=== PATIENT | male | born 1945 | race Caucasian/White ===

== ENCOUNTER 2018-12-17 09:47 | Inpatient (IN) | payer MEDICARE ==
[~2018-12-17] VITALS: Ht 175.3 cm; Wt 111.8 kg
[~2018-12-17 09:47] MED LIST: ACET325 PO; ALBIPROI INH; ALBU3IS INH; ALBU90OI61 INH; CYCL10 PO; FURO40 PO; HYDMOR2 PO; LEVAQUIN-D750 MG/150 IV; LEVFLO500 PO; MAGN84 PO; NOVOLIN 70100 UNIT/1; Novolin R100 UNIT/M SC; ONDA8ODT MM; POTCHL20ER PO; PRED10 PO; VANCOMYCIN2 GM/500 M IV; Zofran2 MG/1 ML IV
[2018-12-17 11:13] LABS: Hematocrit 42.9 % (37.0-53.0); Hemoglobin 15.4 g/dL (13.5-17.5); Mean Corpuscular HGB Conc 35.9 g/dL (31.5-36.5); Mean Corpuscular Volume 84 fL (80-100); Mean Platelet Volume 10.3 fL (9.1-12.4); Platelet Count 355 K/mm3 (150-400); RDW Coefficient Variation 12.1 % (11.7-14.2); RDW Standard Deviation 36.8 fL (35.1-46.3); Red Blood Cell Count 5.13 M/mm3 (4.30-5.90); White Blood Cell Count 27.42 K/mm3 (4.00-11.30)
[2018-12-17 11:26] LABS: Troponin I <0.015 ng/mL (0.000-0.040)
[2018-12-17 11:35] LABS: BASOPHILS PERCENT MAN 0 % (0-2); EOSINOPHILS PERCENT MAN 0 % (0-6); LYMPHOCYTES ABSOLUTE MAN 1.91 K/mm3 (0.84-5.20); LYMPHOCYTES PERCENT MAN 7 % (21-46); MONOCYTES ABSOLUTE MAN 1.64 K/mm3 (0.16-1.47); MONOCYTES PERCENT MAN 6 % (4-13); NEUTROPHILS ABSOLUTE MAN 23.85 K/mm3 (1.96-9.15); SEG NEUTROPHILS PERCENT MAN 87 % (41-73); TOTAL CELLS COUNTED 100
[2018-12-17 11:39] LABS: Alanine Aminotransfer (ALT/SGP 27 U/L (12-78); Albumin, Blood 2.5 g/dL (3.4-5.0); Albumin/Globulin Ratio 0.4 (0.8-1.8); Alk Phos 128 U/L (50-136); Anion Gap 14 mmol/L (6-16); Aspartate Aminotrans (AST/SGOT 46 U/L (12-37); Blood Urea Nitrogen 40 mg/dL (8-24); Bun/Creatinine Ratio 34.8 (12.0-20.0); CO2, Blood 27 mmol/L (21-32); CPK Creatine Kinase 1031 U/L (39-308); Calcium, Blood 8.5 mg/dL (8.5-10.1); Chloride, Blood 82 mmol/L (98-108); Creatinine, Blood 1.15 mg/dL (0.60-1.20); Globulin, Blood 6.3 g/dL (2.2-4.0); Glomerular Filtration Rate >60 (60-); Glucose, Blood 688 mg/dL (70-99); Potassium, Blood 2.9 mmol/L (3.5-5.5); Sodium, Blood 123 mmol/L (136-145); Total Protein, Blood 8.8 g/dL (6.4-8.2)
[2018-12-17] MEDS ORDERED: POTCHL20ER (11:41)
[2018-12-17] MEDS ORDERED: AMIL5 PO (11:42)
[2018-12-17] MEDS ORDERED: Depo-Testos200 MG/ML IM (11:43)
[2018-12-17] MEDS ORDERED: METO2.5 PO (11:44)
[2018-12-17 11:52] LABS: Creatine Kinase MB 8.2 ng/mL (0.0-3.6); Creatine Kinase MB Index 0.8 (0.0-4.0)
[2018-12-17] MEDS ORDERED: ALBU90OI61 INH (13:39)
[2018-12-17 13:51] LABS: C-REACTIVE PROTEIN, EXT RANGE 15.2 mg/dL (0.000-0.300); Magnesium, Blood 2.6 mg/dL (1.6-2.4)
[2018-12-17 13:54] LABS: Thyroid Stimulating Hormone 1.33 uIU/mL (0.360-4.800)
[2018-12-17 14:06] LABS: Source, Urine Clean Catch
[2018-12-17 14:15] LABS: Appearance, Urine Clear (Clear); Bilirubin, Urine Neg (Neg); Blood, Urine 2+ (Neg); Color, Urine Yellow (P-Yellow); Glucose Qualitative, Urine 4+ (Neg); Ketones, Urine Neg (Neg); Leukocyte Esterase, Urine Neg (Neg); Nitrite, Urine Neg (Neg); Protein, Urine Neg (Neg); Specific Gravity, Urine 1.005 (1.003-1.022); Urobilinogen, Urine NORM (Normal)
[2018-12-17 14:31] LABS: Bacteria Not Seen /hpf; Red Blood Cells, Urine Not Seen /hpf (0-2); Squamous Epithelial Cells Not Seen /hpf (Few); White Blood Cells, Urine 0-2 /hpf (0-5)
--- NOTE | 2018-12-17 19:53 | NUR ---
HE ARRIVED TO THE UNIT AT 1640 BY AARCELI FROM ER. HE IS STIFF AND PAINFUL ALL OVER. HE IS PLEASANT AND COOPERATIVE. HE HAS WOUNDS ON HIS BOTTOM, LEGS AND FEET. HE HAS SIGNIFICANT EDEMA IN LEGS AND FEET. SEE PHOTOS. WOUND CARE DONE. IVF'S ONGOING. INSULIN, POTASSIUM AND NORCO GIVEN. TELE ON. NOTIFIED OF AFIB, RATE 92. SHE MAY ORDER AN ECHO TOMORROW. LAST CBG 411.
--- NOTE | 2018-12-18 04:06 | NUR ---
SHIFT SUMMARY PT HAS RESTED MOST OF THE NIGHT. ALERT TO PLACE, AND SELF. UNABLE TO TELL ME THE YEAR. LEGS REMAIN SWOLLEN AND EDEMATOUS. IV ABX INFUSED ORDERED. DRESSINGS INTACT. PT HAS OCCASIONAL INCONTINENCE AND IS ENCOURAGED TO CALL FOR BATHROOM ASSISTANCE BEFORE INCONTINENT EPISODES OCCUR. IVF INFUSING ORDERED. VITALS STABLE. TELE IN PLACE WITH AFIB RHYTHM. WILL CONTINUE TO MONITOR AND REPORT TO ONCOMING RN.
[2018-12-18 05:11] LABS: BASOPHILS ABSOLUTE AUTO 0.11 K/mm3 (0.00-0.23); BASOPHILS PERCENT AUTO 1 % (0-2); EOSINOPHILS ABSOLUTE AUTO 0.24 K/mm3 (0.00-0.68); EOSINOPHILS PERCENT AUTO 2 % (0-6); Hemoglobin 13.3 g/dL (13.5-17.5); IMMATURE GRAN ABSOLUTE AUTO 0.97 K/mm3 (0.00-0.10); IMMATURE GRAN PERCENT AUTO 6 % (0-1); LYMPHOCYTES ABSOLUTE AUTO 1.84 K/mm3 (0.84-5.20); LYMPHOCYTES PERCENT AUTO 12 % (21-46); MONOCYTES ABSOLUTE AUTO 1.28 K/mm3 (0.16-1.47); MONOCYTES PERCENT AUTO 8 % (4-13); Mean Corpuscular HGB 29.8 pg (26.0-34.0); Mean Corpuscular Volume 85 fL (80-100); Mean Platelet Volume 10.3 fL (9.1-12.4); NEUTROPHILS ABSOLUTE AUTO 11.01 K/mm3 (1.96-9.15); NEUTROPHILS PERCENT AUTO 71 % (41-73); Platelet Count 280 K/mm3 (150-400); RDW Coefficient Variation 12.3 % (11.7-14.2); RDW Standard Deviation 37.4 fL (35.1-46.3); Red Blood Cell Count 4.47 M/mm3 (4.30-5.90); White Blood Cell Count 15.45 K/mm3 (4.00-11.30)
[2018-12-18 05:50] LABS: Magnesium, Blood 2.3 mg/dL (1.6-2.4)
[2018-12-18 05:54] LABS: CPK Creatine Kinase 747 U/L (39-308); Creatine Kinase MB 4.9 ng/mL (0.0-3.6); Creatine Kinase MB Index 0.7 (0.0-4.0)
[2018-12-18 06:16] LABS: Alanine Aminotransfer (ALT/SGP 23 U/L (12-78); Albumin, Blood 1.9 g/dL (3.4-5.0); Albumin/Globulin Ratio 0.4 (0.8-1.8); Alk Phos 85 U/L (50-136); Anion Gap 10 mmol/L (6-16); Aspartate Aminotrans (AST/SGOT 47 U/L (12-37); Bilirubin, Total 0.5 mg/dL (0.1-1.0); Blood Urea Nitrogen 26 mg/dL (8-24); Bun/Creatinine Ratio 33.7 (12.0-20.0); CO2, Blood 27 mmol/L (21-32); Calcium, Blood 7.6 mg/dL (8.5-10.1); Chloride, Blood 98 mmol/L (98-108); Creatinine, Blood 0.77 mg/dL (0.60-1.20); Glomerular Filtration Rate >60 (60-); Glucose, Blood 107 mg/dL (70-99); Potassium, Blood 2.3 mmol/L (3.5-5.5); Total Protein, Blood 6.9 g/dL (6.4-8.2); Vancomycin, Random 11.9 ug/mL
[2018-12-18 06:17] LABS: Sodium, Blood 135 mmol/L (136-145)
--- NOTE | 2018-12-18 06:25 | NUR ---
CRITICAL LAB DR. FONG NOTIFIED OF CRITICAL POTASSIUM OF 2.3. HE WAS ALSO NOTIFIED THAT PT IS ALREADY ON ORAL POTASSIUM 40 MEQ BID, LAST DOSE WAS YESTERDAY AFTERNOON. 40 MEQ OF IV POTASSIUM ORDERED.
[2018-12-18 08:29] LABS: Vancomycin, Trough 9.6 ug/mL (5.0-10.0)
--- NOTE | 2018-12-18 09:44 | NUR ---
NOTIFIED DR. GATES OF PT'S POTASSIUM LEVEL OF 2.3 THIS AM. SAID TO GIVE MEDS PER EMAR AND RECHECK POTASSIUM AT [address]. NOTIFIED [address] GATES PT AFIB AT 110 AND REQUESTING BREATHING TXTS. PT REPORTS HE USES ALBUTEROL AT HOME. DR. GATES SAID TO ORDER BREATHING TXTX Q4H PRN. NO OTHER NEW ORDERS AT THIS TIME.
--- NOTE | 2018-12-18 16:28 | NUR ---
Patient was lying in bed and alert when I entered the patient's room. When I introduced myself and told patient what department I am from, patient yell, "Praise the Lord." I learned that patient is very pentacostal in his belief system. We shared scripture, I provided pastoral crisis intervention counselor, companionship and prayer. Patient asked for prayer to "get back on my feet again." So that that is what I prayed for him. I allowed patient's belief system to dictate how and what I said. Patient seemed genuinely encouraged by the visit and thanked me for the Scriptures I read and the prayer that I prayed.
[2018-12-18 17:31] LABS: Source, Urine Clean Catch
[2018-12-18 17:34] LABS: Appearance, Urine Clear (Clear); Bilirubin, Urine Neg (Neg); Blood, Urine Neg (Neg); Color, Urine Yellow (P-Yellow); Glucose Qualitative, Urine 4+ (Neg); Ketones, Urine Neg (Neg); Leukocyte Esterase, Urine Neg (Neg); Nitrite, Urine Neg (Neg); Protein, Urine Neg (Neg); Specific Gravity, Urine 1.015 (1.003-1.022); Urobilinogen, Urine NORM (Normal)
--- NOTE | 2018-12-18 17:53 | NUR ---
SHIFT SUMMARY- PT DENIES PAIN. PT DENIES N/V. DENIES SOB. RESP E/U ON RA. 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 PT'S BLOOD SUGAR THIS PM 413. PT RECIEVED [address] GATES NOTIFIED. DR. GATES SAID TO ORDER ONE TIME DOSE OF 10 UNITS OF LANTUS. MEDS GIVEN PER EMAR. POWDER APPLIED TO REDDENED AREA/RASH UNDER BREAST FOLDS. PT RECIEVED BREATHING TXT THIS AM. BEDREST AT THIS TIME. TURNS Q2H. NO OTHER SIGNIFICANT CHANGES THIS SHIFT.
--- NOTE | 2018-12-19 04:25 | NUR ---
SHIFT SUMMARY PT HAS SLEPT WELL THROUGHOUT SHIFT. PT DRESSINGS ON LEGS WERE CHANGED. PT MEPILEX ON SACRUM ARE INTACT AND NOT SOILED. PT HAD NO COMPLAINTS OR ISSUES. PT SLEEPING AND BREATHING EASY.
[2018-12-19 05:19] LABS: Hematocrit 35.2 % (37.0-53.0); Hemoglobin 12.1 g/dL (13.5-17.5); Mean Corpuscular HGB 30.5 pg (26.0-34.0); Mean Corpuscular HGB Conc 34.4 g/dL (31.5-36.5); Mean Platelet Volume 10.3 fL (9.1-12.4); Platelet Count 267 K/mm3 (150-400); RDW Coefficient Variation 12.5 % (11.7-14.2); RDW Standard Deviation 40.8 fL (35.1-46.3); Red Blood Cell Count 3.97 M/mm3 (4.30-5.90); White Blood Cell Count 13.37 K/mm3 (4.00-11.30)
[2018-12-19 05:24] LABS: Mean Corpuscular Volume 89 fL (80-100)
[2018-12-19 05:49] LABS: Alanine Aminotransfer (ALT/SGP 20 U/L (12-78); Albumin, Blood 1.7 g/dL (3.4-5.0); Albumin/Globulin Ratio 0.3 (0.8-1.8); Alk Phos 85 U/L (50-136); Anion Gap 11 mmol/L (6-16); Aspartate Aminotrans (AST/SGOT 40 U/L (12-37); Bilirubin, Total 0.6 mg/dL (0.1-1.0); Blood Urea Nitrogen 21 mg/dL (8-24); CO2, Blood 25 mmol/L (21-32); Calcium, Blood 7.2 mg/dL (8.5-10.1); Chloride, Blood 98 mmol/L (98-108); Creatinine, Blood 0.75 mg/dL (0.60-1.20); Globulin, Blood 4.9 g/dL (2.2-4.0); Glomerular Filtration Rate >60 (60-); Glucose, Blood 286 mg/dL (70-99); Potassium, Blood 2.1 mmol/L (3.5-5.5); Sodium, Blood 134 mmol/L (136-145); Total Protein, Blood 6.6 g/dL (6.4-8.2)
[2018-12-19 05:51] LABS: BAND PERCENT MAN 1 % (0-8); BASOPHILS ABSOLUTE MAN 0.26 K/mm3 (0.00-0.23); BASOPHILS PERCENT MAN 2 % (0-2); EOSINOPHILS ABSOLUTE MAN 0.13 K/mm3 (0.00-0.68); EOSINOPHILS PERCENT MAN 1 % (0-6); LYMPHOCYTES PERCENT MAN 12 % (21-46); METAMYELOCYTE ABSOLUTE MAN 0.53 K/mm3 (0.00-0.00); METAMYELOCYTE PERCENT MAN 4 % (0-0); MONOCYTES ABSOLUTE MAN 0.93 K/mm3 (0.16-1.47); MONOCYTES PERCENT MAN 7 % (4-13); MYELOCYTE PERCENT MAN 3 % (0-0); NEUTROPHILS ABSOLUTE MAN 9.49 K/mm3 (1.96-9.15); SEG NEUTROPHILS PERCENT MAN 70 % (41-73); TOTAL CELLS COUNTED 100
--- NOTE | 2018-12-19 12:45 | NUR ---
NOTIFIED DR. GATES PT'S BLOOD SUGAR IS 444 AND PT RECIEVED [address] GATES SAID TO ORDER ONE TIME DOSE OF 10 UNITS OF LANTUS AND SHE WILL ADJUST HIS SLIDING SCALE. NO OTHER NEW ORDERS AT THIS TIME.
--- NOTE | 2018-12-19 15:13 | NUR ---
Patient was asleep when I entered the room and struggled to respond to the sound of his name. Patient had asked me for a Bible last visit so I dropped the Bible off and let patient continue sleeping.
--- NOTE | 2018-12-19 18:31 | NUR ---
SHIFT SUMMARY- PT DENIES PAIN. DENIES N/V. DENIES SOB. RESP E/U ON RA. PT'S POTASSIUM 2.[address] GATES NOTIFIED. MEDS GIVEN PER EMAR. PT'S BLOOD SUGAR HAS BEEN HIGH TODAY. 444 THIS AFTERNOON AND [address] GATES INCREASED INSULIN TO HIGH SLIDING SCALE. MEDS GIVEN PER EMAR. DR. GATES NOTIFIED OF 424 BLOOD SUGAR THIS PM. NO NEW ORDERS AT THIS TIME. BEDREST. TURNS Q2H. NO OTHER SIGNIFICANT CHANGES THIS SHIFT.
--- NOTE | 2018-12-19 23:07 | NUR ---
CALLED PROVIDER AND INFORMED OF PT CBG 405. PROVIDER WAS INFORMED OF INSULIN GIVEN. PROVIDER WAS INFORMED OF K+ CRIT. VALUE FROM MORNING. PROVIDER ORDERED K+ LAB DRAW AND CBG CHECKED AGAIN.
[2018-12-20 05:06] LABS: Hematocrit 34.7 % (37.0-53.0); Hemoglobin 11.8 g/dL (13.5-17.5); Mean Corpuscular HGB 30.3 pg (26.0-34.0); Mean Corpuscular Volume 89 fL (80-100); Platelet Count 268 K/mm3 (150-400); RDW Coefficient Variation 12.5 % (11.7-14.2); RDW Standard Deviation 40.8 fL (35.1-46.3); White Blood Cell Count 14.12 K/mm3 (4.00-11.30)
[2018-12-20 05:36] LABS: Alanine Aminotransfer (ALT/SGP 22 U/L (12-78); Albumin, Blood 1.7 g/dL (3.4-5.0); Albumin/Globulin Ratio 0.3 (0.8-1.8); Alk Phos 86 U/L (50-136); Anion Gap 8 mmol/L (6-16); Aspartate Aminotrans (AST/SGOT 30 U/L (12-37); Bilirubin, Total 0.6 mg/dL (0.1-1.0); Blood Urea Nitrogen 16 mg/dL (8-24); Bun/Creatinine Ratio 20.2 (12.0-20.0); CO2, Blood 27 mmol/L (21-32); Calcium, Blood 7.4 mg/dL (8.5-10.1); Chloride, Blood 98 mmol/L (98-108); Creatinine, Blood 0.79 mg/dL (0.60-1.20); Globulin, Blood 5.1 g/dL (2.2-4.0); Glomerular Filtration Rate >60 (60-); Glucose, Blood 228 mg/dL (70-99); Potassium, Blood 2.6 mmol/L (3.5-5.5); Sodium, Blood 133 mmol/L (136-145); Total Protein, Blood 6.8 g/dL (6.4-8.2)
[2018-12-20 05:39] LABS: BAND PERCENT MAN 2 % (0-8); BASOPHILS PERCENT MAN 0 % (0-2); EOSINOPHILS ABSOLUTE MAN 0.28 K/mm3 (0.00-0.68); EOSINOPHILS PERCENT MAN 2 % (0-6); LYMPHOCYTES ABSOLUTE MAN 1.55 K/mm3 (0.84-5.20); LYMPHOCYTES PERCENT MAN 11 % (21-46); METAMYELOCYTE ABSOLUTE MAN 0.14 K/mm3 (0.00-0.00); METAMYELOCYTE PERCENT MAN 1 % (0-0); MONOCYTES ABSOLUTE MAN 1.55 K/mm3 (0.16-1.47); MONOCYTES PERCENT MAN 11 % (4-13); MYELOCYTE ABSOLUTE MAN 0.56 K/mm3 (0.00-0.00); MYELOCYTE PERCENT MAN 4 % (0-0); NEUTROPHILS ABSOLUTE MAN 10.02 K/mm3 (1.96-9.15); SEG NEUTROPHILS PERCENT MAN 69 % (41-73); TOTAL CELLS COUNTED 100
--- NOTE | 2018-12-20 06:11 | NUR ---
SHIFT SUMMARY PT HAD A CBG THAT REQUIRED PROVIDER TO BE CALLED. PT WAS GIVEN REQUIRED INSULIN PER EMAR. PROVIDER ORDERED CBG CHECKS AND A STAT K+ LAB DRAW FOR EVAL. PT DID RECIEVE A INFUSION OF K+ PER EMAR. PT CBG DID RETURN TO ACCEPTABLE LEVELS. PT LEG DRESSINGS CHANGED. CX RASH IS IMPROVING. PT HAD NO COMPLAINTS OR ISSUES NOTED. PT IS CURRENTLY SLEEPING AND BREATHING EASY. CALL LIGHT IN REACH.
--- NOTE | 2018-12-20 18:45 | NUR ---
PATIENT A/O X4 THIS SHIFT, FORGETFUL AT TIMES. WORKED WITH PT/OT TODAY. UP TO BSC AND CHAIR WITH FWW, GAIT BELT AND 2 ASSIST. DRESSINGS TO BUTTOM AND R LEG CHANGED THIS SHIFT. DRESSINGS TO BLE CHANGED LAST NIGHT AND REMAIN C/D/I. PATIENT CALM AND COOPERATIVE WITH CARE. VSS THIS SHIFT. REPORTS PAIN, BUT DENIES NEED FOR PAIN MEDICATIONS.
[2018-12-21 05:26] LABS: Hematocrit 40.1 % (37.0-53.0); Hemoglobin 13.7 g/dL (13.5-17.5); Mean Corpuscular HGB 30.7 pg (26.0-34.0); Mean Corpuscular HGB Conc 34.2 g/dL (31.5-36.5); Mean Corpuscular Volume 90 fL (80-100); Platelet Count 300 K/mm3 (150-400); RDW Coefficient Variation 12.6 % (11.7-14.2); RDW Standard Deviation 41.7 fL (35.1-46.3); Red Blood Cell Count 4.46 M/mm3 (4.30-5.90); White Blood Cell Count 19.33 K/mm3 (4.00-11.30)
--- NOTE | 2018-12-21 05:37 | NUR ---
SHIFT SUMMARY PT IS A 73 Y/O MALE, ADMITTED FOR BLE CELLULITIS. HE IS A&O X 2-3, WITH INTERMITTENT CONFUSION/FORGETFULNESS. THE PT DID REPORT PAIN IN HIS LEGS, THOUGH HE REFUSED TO RATE IT AND DENIED THE NEED FOR PAIN MEDS. HE REPORTED SUDDEN NAUSEA THIS AM, AND WAS MEDICATED X 1 WITH PRN ZOFRAN. VITALS REMAINED STABLE. NO OTHER ACUTE CHANGES IN PT CONDITION NOTED. WILL CONTINUE TO MONITOR AND TREAT PER EMAR.
[2018-12-21 05:51] LABS: BAND PERCENT MAN 3 % (0-8); BASOPHILS PERCENT MAN 0 % (0-2); EOSINOPHILS ABSOLUTE MAN 0.38 K/mm3 (0.00-0.68); EOSINOPHILS PERCENT MAN 2 % (0-6); LYMPHOCYTES ABSOLUTE MAN 0.96 K/mm3 (0.84-5.20); LYMPHOCYTES PERCENT MAN 5 % (21-46); METAMYELOCYTE ABSOLUTE MAN 0.77 K/mm3 (0.00-0.00); METAMYELOCYTE PERCENT MAN 4 % (0-0); MONOCYTES ABSOLUTE MAN 0.96 K/mm3 (0.16-1.47); MONOCYTES PERCENT MAN 5 % (4-13); MYELOCYTE ABSOLUTE MAN 0.57 K/mm3 (0.00-0.00); MYELOCYTE PERCENT MAN 3 % (0-0); NEUTROPHILS ABSOLUTE MAN 15.65 K/mm3 (1.96-9.15); SEG NEUTROPHILS PERCENT MAN 78 % (41-73); TOTAL CELLS COUNTED 100
[2018-12-21 06:07] LABS: Anion Gap 8 mmol/L (6-16); Blood Urea Nitrogen 14 mg/dL (8-24); Bun/Creatinine Ratio 19.9 (12.0-20.0); CO2, Blood 25 mmol/L (21-32); Calcium, Blood 7.9 mg/dL (8.5-10.1); Chloride, Blood 101 mmol/L (98-108); Glomerular Filtration Rate >60 (60-); Glucose, Blood 221 mg/dL (70-99); Sodium, Blood 134 mmol/L (136-145)
--- NOTE | 2018-12-21 18:29 | NUR ---
PATIENT A/OX4, VERY DROWSY THIS SHIFT. C/O NAUSEA THROUGHOUT THE SHIFT, MEDICATED WITH ZOFRAN. DIDN'T FEEL WELL ENOUGH TO WORK WITH PT TODAY. VOIDING IN URINAL, LARGE INCONTINENT STOOL TODAY. NYSTATING POWDER TO FOLDS, DRESSING TO BLE CHANGED USING NON-ADHERENT, ABD, KERLEX AND HANK WRAP. LEGS CONTINUE TO DRAIN, PURULENT DRAIANGE WITH FOUL ODOR. HR 100-120'S THIS SHIFT, DR. GATES NOTIFIED AND PATIENT PLACED ON METOPROLOL. PNC D/C'D AND ZOSYN STARTED. 2 20G IV'S WNL AND SL BETWEEN ABX.
[2018-12-22 04:37] LABS: Hematocrit 41.2 % (37.0-53.0); Hemoglobin 13.6 g/dL (13.5-17.5); Mean Corpuscular HGB 30.4 pg (26.0-34.0); Mean Corpuscular Volume 92 fL (80-100); Mean Platelet Volume 9.8 fL (9.1-12.4); Platelet Count 292 K/mm3 (150-400); RDW Standard Deviation 43.7 fL (35.1-46.3); Red Blood Cell Count 4.47 M/mm3 (4.30-5.90)
[2018-12-22 04:54] LABS: Alanine Aminotransfer (ALT/SGP 27 U/L (12-78); Albumin, Blood 1.8 g/dL (3.4-5.0); Albumin/Globulin Ratio 0.3 (0.8-1.8); Alk Phos 74 U/L (50-136); Anion Gap 4 mmol/L (6-16); Aspartate Aminotrans (AST/SGOT 24 U/L (12-37); Bilirubin, Total 0.5 mg/dL (0.1-1.0); Blood Urea Nitrogen 17 mg/dL (8-24); Bun/Creatinine Ratio 20.4 (12.0-20.0); CO2, Blood 29 mmol/L (21-32); Calcium, Blood 7.8 mg/dL (8.5-10.1); Chloride, Blood 103 mmol/L (98-108); Creatinine, Blood 0.83 mg/dL (0.60-1.20); Globulin, Blood 5.7 g/dL (2.2-4.0); Glomerular Filtration Rate >60 (60-); Glucose, Blood 121 mg/dL (70-99); Potassium, Blood 3.2 mmol/L (3.5-5.5); Sodium, Blood 136 mmol/L (136-145); Total Protein, Blood 7.5 g/dL (6.4-8.2)
[2018-12-22 05:34] LABS: BAND PERCENT MAN 1 % (0-8); BASOPHILS PERCENT MAN 0 % (0-2); EOSINOPHILS ABSOLUTE MAN 0.48 K/mm3 (0.00-0.68); EOSINOPHILS PERCENT MAN 3 % (0-6); LYMPHOCYTES ABSOLUTE MAN 1.13 K/mm3 (0.84-5.20); LYMPHOCYTES PERCENT MAN 7 % (21-46); METAMYELOCYTE ABSOLUTE MAN 0.16 K/mm3 (0.00-0.00); METAMYELOCYTE PERCENT MAN 1 % (0-0); MONOCYTES ABSOLUTE MAN 1.13 K/mm3 (0.16-1.47); MONOCYTES PERCENT MAN 7 % (4-13); MYELOCYTE ABSOLUTE MAN 0.48 K/mm3 (0.00-0.00); MYELOCYTE PERCENT MAN 3 % (0-0); NEUTROPHILS ABSOLUTE MAN 12.79 K/mm3 (1.96-9.15); SEG NEUTROPHILS PERCENT MAN 78 % (41-73); TOTAL CELLS COUNTED 100
--- NOTE | 2018-12-22 06:16 | NUR ---
SHIFT SUMMARY PT IS A 73 Y/O M, ADMITTED FOR BLE CELLULITIS. HE IS A&O X 3. THE PT DID REPORT PAIN IN HIS LEGS, BUT WOULD NOT RATE IT AND REFUSED ANY PAIN MEDS. HE DENIED ANY NAUSEA OR SOB DURING THE NIGHT. PT'S HEART RATE WAS ELEVATED AT THE BEGINNING OF SHIFT, IN THE 100-110S, BUT CAME DOWN TO THE 90S AFTER PO METOPROLOL. NO OTHER ACUTE CHANGES IN PT CONDITION NOTED. WILL CONTINUE TO MONITOT AND TREAT PER EMAR.
--- NOTE | 2018-12-22 17:11 | NUR ---
HE SLEEPS A LOT. HE INTERACTED WITH HIS VISITORS EARLIER TODAY THOUGH. HE IS INCONTINENT OF UNFORMED SOFT STOOL, SOMEWHAT GRAINY TOO. HE USES THE URINAL WITH HELP BUT ALSO GETS HIS GOWN WET WITH POOR CONTROL IN BED. MARISOL AREA CLEANED AND POWDERED WITH NYSTATIN. BOTTOM LOOKS BETTER THAN ON ADMISSION. RIGHT LEG DORSALLY NEAR KNEE AND THIGH MUCH LESS RED THAN DAY OF ADMISSION. BOTH LOWER LEGS AND FEET ABOUT THE SAME DAY OF ADMISSION. MODERATE AMT OF SS DRAINAGE FROM RIGHT LEG AND FOOT. SCANT RED DRAINAGE FROM L LOWER LEG. HE TOLERATED THE WOUND CARE WELL. NEW NONADHERENT, ABD'S, CHICKEN SKIN AND HANK WRAPS APPLIED. PO INTAKE ABOUT 50%. HE HAS NOT BEEN OUT OF THE BED TODAY. HE IS VERY STIFF AND WEAK. HE DOES HELP TURN THOUGH. VSS.
[2018-12-23 05:01] LABS: BASOPHILS ABSOLUTE AUTO 0.06 K/mm3 (0.00-0.23); BASOPHILS PERCENT AUTO 1 % (0-2); EOSINOPHILS ABSOLUTE AUTO 0.29 K/mm3 (0.00-0.68); EOSINOPHILS PERCENT AUTO 2 % (0-6); Hematocrit 35.5 % (37.0-53.0); Hemoglobin 11.4 g/dL (13.5-17.5); IMMATURE GRAN ABSOLUTE AUTO 0.57 K/mm3 (0.00-0.10); IMMATURE GRAN PERCENT AUTO 5 % (0-1); LYMPHOCYTES ABSOLUTE AUTO 2.36 K/mm3 (0.84-5.20); LYMPHOCYTES PERCENT AUTO 19 % (21-46); MONOCYTES ABSOLUTE AUTO 1.18 K/mm3 (0.16-1.47); MONOCYTES PERCENT AUTO 9 % (4-13); Mean Corpuscular HGB 29.5 pg (26.0-34.0); Mean Corpuscular HGB Conc 32.1 g/dL (31.5-36.5); Mean Corpuscular Volume 92 fL (80-100); Mean Platelet Volume 9.6 fL (9.1-12.4); NEUTROPHILS ABSOLUTE AUTO 8.12 K/mm3 (1.96-9.15); NEUTROPHILS PERCENT AUTO 65 % (41-73); Platelet Count 240 K/mm3 (150-400); RDW Coefficient Variation 13.3 % (11.7-14.2); RDW Standard Deviation 44.5 fL (35.1-46.3); Red Blood Cell Count 3.86 M/mm3 (4.30-5.90); White Blood Cell Count 12.58 K/mm3 (4.00-11.30)
[2018-12-23 05:26] LABS: Anion Gap 4 mmol/L (6-16); Blood Urea Nitrogen 16 mg/dL (8-24); Bun/Creatinine Ratio 21.7 (12.0-20.0); CO2, Blood 28 mmol/L (21-32); Calcium, Blood 7.5 mg/dL (8.5-10.1); Chloride, Blood 104 mmol/L (98-108); Creatinine, Blood 0.74 mg/dL (0.60-1.20); Glomerular Filtration Rate >60 (60-); Glucose, Blood 143 mg/dL (70-99); Sodium, Blood 136 mmol/L (136-145)
--- NOTE | 2018-12-23 06:39 | NUR ---
SHIFT SUMMARY PT IS A 73 Y/O MALE, ADMITTED FOR BLE CELLULITIS. HE IS A&O X 2-3, WITH INTERMITTENT FORGETFULNESS/CONFUSION. THE PT DENIED ANY COMPLAINTS OF PAIN OR NAUSEA, BUT DID REPORT SOB WHICH WAS TREATED WITH PRN BREATHING TREATMENTS. VITAL SIGNS STABLE. NO OTHER ACUTE CHANGES IN PT CONDITION NOTED. WILL CONTINUE TO MONITOR AND TREAT PER EMAR.
--- NOTE | 2018-12-23 15:36 | NUR ---
SHIFT SUMMARY 73 YR OLD MALE ADMITTED FOR CELLULITIS OF THE BLE, FOUND FALLEN IN HIS HOME. MORBIDLY OBESE. FULL CODE. PLAN IS FOR DC TO A SNF. HE INFORMED DISCHARGE PLANNING THAT HE PREFERS AN OUT-OF-TOWN SNF. PT PLANS TO MOVE IN WITH A FRIEND FOLLOWING SNF PLACEMENT HIS LIVING CONDITIONS WERE UNSANITARY. PT HAS MEPILEX ON HIS COCCYX AND LFT BUTTOCK FOR SKIN BREAKDOWN. HE IS ON ROOM AIR (DOES RECEIVE BREATHING TX'S). HE CAN BE OCCCASIONALLY FORGETFUL AND CONFUSED. HE TAKES HIS PILLS WHOLE IN APPLESAUCE. PLAN IS FOR ORAL [facility] FOR 7-10 DAYS. HE IS A 2 PERSON ASSIST WITH A FWW. HX OF FALLS AND POORLY CONTROLLED DM 2. HX OF A FIB (WARFARIN NOT CONSIDERED DUE TO FALLING HISTORY). BLE WRAPPED AND COVERED IN DRESSINGS.
--- NOTE | 2018-12-24 03:55 | NUR ---
Shift summary: Bilateral legs are both red and swollen with bandages in place.Pt restless and has gotten very little sleep overnight. Pt states he has no c/o pain though. Pt had large bm last night. Pt able to sit as side of bed and urinate last pm with one person assist. Pt questioning as to why he is not getting his lasix that he normally gets. Pt confused at times.
[2018-12-24 06:56] LABS: BASOPHILS ABSOLUTE AUTO 0.05 K/mm3 (0.00-0.23); BASOPHILS PERCENT AUTO 0 % (0-2); EOSINOPHILS PERCENT AUTO 3 % (0-6); Hematocrit 36.9 % (37.0-53.0); Hemoglobin 11.9 g/dL (13.5-17.5); IMMATURE GRAN PERCENT AUTO 4 % (0-1); LYMPHOCYTES ABSOLUTE AUTO 2.43 K/mm3 (0.84-5.20); LYMPHOCYTES PERCENT AUTO 21 % (21-46); MONOCYTES ABSOLUTE AUTO 1.05 K/mm3 (0.16-1.47); MONOCYTES PERCENT AUTO 9 % (4-13); Mean Corpuscular HGB 29.8 pg (26.0-34.0); Mean Corpuscular HGB Conc 32.2 g/dL (31.5-36.5); Mean Corpuscular Volume 92 fL (80-100); Mean Platelet Volume 9.3 fL (9.1-12.4); NEUTROPHILS ABSOLUTE AUTO 7.13 K/mm3 (1.96-9.15); NEUTROPHILS PERCENT AUTO 63 % (41-73); Platelet Count 253 K/mm3 (150-400); RDW Coefficient Variation 13.2 % (11.7-14.2); RDW Standard Deviation 44.4 fL (35.1-46.3); White Blood Cell Count 11.36 K/mm3 (4.00-11.30)
[2018-12-24 07:16] LABS: Anion Gap 5 mmol/L (6-16); Blood Urea Nitrogen 12 mg/dL (8-24); Bun/Creatinine Ratio 19.5 (12.0-20.0); CO2, Blood 25 mmol/L (21-32); Calcium, Blood 7.5 mg/dL (8.5-10.1); Chloride, Blood 104 mmol/L (98-108); Creatinine, Blood 0.61 mg/dL (0.60-1.20); Glomerular Filtration Rate >60 (60-); Glucose, Blood 109 mg/dL (70-99); Potassium, Blood 4.2 mmol/L (3.5-5.5); Sodium, Blood 134 mmol/L (136-145)
--- NOTE | 2018-12-24 11:24 | NUR ---
Patient gave permission for Alecia Ford to work with him.
[2018-12-24] MEDS ORDERED: HUMALOG KW200 UNIT/1 (14:00)
[2018-12-24] MEDS ORDERED: POTCHL20ER PO (14:01)
[2018-12-24] MEDS ORDERED: INSULANPEN SC (14:05)
[2018-12-24] MEDS ORDERED: Lopressor 25 mg25 MG PO (14:05)
[2018-12-24] MEDS ORDERED: LEVFLO500 PO (14:06)
--- NOTE | 2018-12-24 16:34 | NUR ---
DISCHARGE DISCHARGE TO [facility]. INFORMATION PACKET GIVEN TO TRANSPORT. BELONGINGS WITH PATIENT. IV REMOVED WITHOUT DIFFICULTY. PATIENT TRANSPORTED VIA WHEELCHAIR TRANSPORT. REPORT CALLED TO [facility] NURSE.
== END 2018-12-24 16:17 | DRG 872 ==
LOC: ER 09:47 → ERHOLD 12:58 → MEDS 12:58 → ENPENDDIS 12-24 11:00 → MEDS 12-24 16:17
PROVIDERS: Emergency Medicine; Hospitalist; ADMIT Internal Medicine
DX: A41.9 Sepsis, unspecified organism (principal); L03.116 Cellulitis of left lower limb; E87.1 Hypo-osmolality and hyponatremia; M62.82 Rhabdomyolysis; L03.115 Cellulitis of right lower limb; E11.40 Type 2 diabetes mellitus with diabetic neuropathy, unspecified; E86.0 Dehydration; E87.6 Hypokalemia; G47.33 Obstructive sleep apnea (adult) (pediatric); I48.91 Unspecified atrial fibrillation; J44.9 Chronic obstructive pulmonary disease, unspecified; K21.9 Gastro-esophageal reflux disease without esophagitis; L89.159 Pressure ulcer of sacral region, unspecified stage; L89.302 Pressure ulcer of unspecified buttock, stage 2; M20.12 Hallux valgus (acquired), left foot; Z99.81 Dependence on supplemental oxygen; I10 Essential (primary) hypertension; B95.4 Other streptococcus as the cause of diseases classified elsewhere; B96.5 Pseudomonas (aeruginosa) (mallei) (pseudomallei) as the cause of diseases classified elsewhere; Z79.4 Long term (current) use of insulin; E66.01 Morbid (severe) obesity due to excess calories; E11.649 Type 2 diabetes mellitus with hypoglycemia without coma; Z87.891 Personal history of nicotine dependence; W19.XXXA Unspecified fall, initial encounter; Z91.81 History of falling; Z68.39 Body mass index [BMI] 39.0-39.9, adult
CPT/HCPCS: 36415; 36416; 71046; 73620; 80048; 80053; 80202; 81001; 81003; 82024; 82088; 82533; 82550; 82553; 82947; 83036; 83605; 83735; 84132; 84133; 84443; 84484; 85025; 85651; 86140; 87040; 87070; 87075; 87077; 87147; 87186; 87205; 93306; 94640; 94760; 94762; 96361; 96365; 96366; 97110; 97163; 97166; 97530; 97535; 99285-25; A9270-GY; J1650; J1815; J1940; J1956; J2405; J2540; J2543; J3370; J3480; J7030; J7050

== ENCOUNTER 2020-07-25 20:55 | Inpatient (IN) | payer MEDICARE ==
[~2020-07-25] VITALS: Ht 175.3 cm; Wt 110.3 kg
[~2020-07-25 20:55] MED LIST changes: +AMIL5 PO; +Depo-Testos200 MG/ML IM; +HUMALOG KW200 UNIT/1; +INSULANPEN SC; +Lopressor 25 mg25 MG PO; +METO2.5 PO; +POTCHL20ER
[2020-07-25 23:07] LABS: BASOPHILS ABSOLUTE AUTO 0.06 K/mm3 (0.00-0.23); BASOPHILS PERCENT AUTO 0 % (0-2); EOSINOPHILS ABSOLUTE AUTO 0.03 K/mm3 (0.00-0.68); EOSINOPHILS PERCENT AUTO 0 % (0-6); Hematocrit 38.1 % (37.0-53.0); Hemoglobin 12.5 g/dL (13.5-17.5); IMMATURE GRAN ABSOLUTE AUTO 0.24 K/mm3 (0.00-0.10); IMMATURE GRAN PERCENT AUTO 1 % (0-1); LYMPHOCYTES ABSOLUTE AUTO 1.09 K/mm3 (0.84-5.20); LYMPHOCYTES PERCENT AUTO 4 % (21-46); MONOCYTES ABSOLUTE AUTO 1.96 K/mm3 (0.16-1.47); MONOCYTES PERCENT AUTO 8 % (4-13); Mean Corpuscular HGB Conc 32.8 g/dL (31.5-36.5); Mean Corpuscular Volume 85 fL (80-100); Mean Platelet Volume 9.4 fL (9.1-12.4); NEUTROPHILS ABSOLUTE AUTO 21.27 K/mm3 (1.96-9.15); NEUTROPHILS PERCENT AUTO 86 % (41-73); Platelet Count 408 K/mm3 (150-400); RDW Coefficient Variation 12.6 % (11.7-14.2); RDW Standard Deviation 38.8 fL (35.1-46.3); Red Blood Cell Count 4.46 M/mm3 (4.30-5.90); White Blood Cell Count 24.65 K/mm3 (4.00-11.30)
[2020-07-25 23:26] LABS: Albumin, Blood 2.8 g/dL (3.4-5.0); Albumin/Globulin Ratio 0.5 (0.8-1.8); Bilirubin, Total 0.7 mg/dL (0.1-1.0); Bun/Creatinine Ratio 25.6 (12.0-20.0); Calcium, Blood 9.2 mg/dL (8.5-10.1); Creatinine, Blood 1.56 mg/dL (0.60-1.20); Globulin, Blood 5.6 g/dL (2.2-4.0); Potassium, Blood 4.3 mmol/L (3.5-5.5); Total Protein, Blood 8.4 g/dL (6.4-8.2)
[2020-07-25 23:44] LABS: Creatine Kinase MB 4.3 ng/mL (0.0-3.6)
[2020-07-26 03:13] LABS: BASOPHILS ABSOLUTE AUTO 0.04 K/mm3 (0.00-0.23); BASOPHILS PERCENT AUTO 0 % (0-2); EOSINOPHILS ABSOLUTE AUTO 0.03 K/mm3 (0.00-0.68); EOSINOPHILS PERCENT AUTO 0 % (0-6); Hematocrit 30.9 % (37.0-53.0); Hemoglobin 10.2 g/dL (13.5-17.5); IMMATURE GRAN PERCENT AUTO 1 % (0-1); LYMPHOCYTES ABSOLUTE AUTO 1.14 K/mm3 (0.84-5.20); LYMPHOCYTES PERCENT AUTO 5 % (21-46); MONOCYTES ABSOLUTE AUTO 0.86 K/mm3 (0.16-1.47); MONOCYTES PERCENT AUTO 4 % (4-13); Mean Corpuscular HGB 27.9 pg (26.0-34.0); Mean Corpuscular Volume 85 fL (80-100); Mean Platelet Volume 9.3 fL (9.1-12.4); NEUTROPHILS ABSOLUTE AUTO 20.55 K/mm3 (1.96-9.15); NEUTROPHILS PERCENT AUTO 90 % (41-73); Platelet Count 353 K/mm3 (150-400); RDW Coefficient Variation 12.6 % (11.7-14.2); RDW Standard Deviation 38.5 fL (35.1-46.3); Red Blood Cell Count 3.65 M/mm3 (4.30-5.90); White Blood Cell Count 22.82 K/mm3 (4.00-11.30)
[2020-07-26 03:31] LABS: Albumin, Blood 2.4 g/dL (3.4-5.0); Albumin/Globulin Ratio 0.5 (0.8-1.8); Bilirubin, Total 0.8 mg/dL (0.1-1.0); Bun/Creatinine Ratio 26.8 (12.0-20.0); Calcium, Blood 8.2 mg/dL (8.5-10.1); Creatinine, Blood 1.38 mg/dL (0.60-1.20); Globulin, Blood 4.6 g/dL (2.2-4.0); Potassium, Blood 3.4 mmol/L (3.5-5.5)
--- NOTE | 2020-07-26 06:26 | NUR ---
SHIFT SUMMARY PT ARRIVED TO THE UNIT AROUND 0215 IN STABLE CONDTION, AND WAS ALERT AND ORIENTED. ABLE TO GET A GOOD HISTORY FROM PT. PT WAS HYPOTENSIVE AROUND 105 SYSTOLIC, HR STABLE, ON ROOM AIR WITH SATS IN THE HIGH 90'S. LEGS SHOWED BLISTERED, RED, LEAKING, NECROTIC CELLULITIS. LEGS HAD SEROSANGUINEOUS AND PURULENT DRAINAGE WITH A STRONG FOUL ODOR. MULTIPLE ULCERS ON LEGS AND FEET. COVERED WITH ABD PADS AND WRAPPED IN GAUZ. REDDENED/RASH AREAS ON PANNUS AND UNDER BREAST. PICTURES OF WOUNDS AND SKIN IN CHART. PT STATED ONLY MINIMAL PAIN AND DENIED WANTING ANY PAIN MEDICATION. WILL CONTINUE TO MONITOR UNTIL SHIFT CHANGE.
--- NOTE | 2020-07-26 13:27 | NUR ---
REQUESTED CURRENT MEDICATION LIST FROM [facility].
--- NOTE | 2020-07-26 16:02 | NUR ---
SHIFT SUMMARY BLE CELLULITIS, A/O X4, PT SLEEPING BUT EASILY ROUSABLE THROUGH MOST OF SHIFT , VSS, FRESH DRESSING PLACED ON THE OPEN WOUNDS ON LEGS (1 ANTERIOR L LEG, 1 ANTERIOR R LEG, 1 POSTERIOR R LEG), GAUZE PLACED ON OPEN SORE ON L FOOT, L LEG WOUND CLEANED W/ WOUND PORCELAIN TURNER, ABSORPTIVE PADS PLACE UNDER BLE TO CATCH ANY RESIDUAL WOUND DISCHARGE. PT DENIES PAIN T/O SHIFT, CALL LIGHT IN REACH. WILL CONTINUE TO MONITOR AND REPORT TO ONCOMING ENRICO RN.
[2020-07-27 03:43] LABS: BASOPHILS ABSOLUTE AUTO 0.03 K/mm3 (0.00-0.23); BASOPHILS PERCENT AUTO 0 % (0-2); EOSINOPHILS ABSOLUTE AUTO 0.38 K/mm3 (0.00-0.68); EOSINOPHILS PERCENT AUTO 3 % (0-6); Hematocrit 27.5 % (37.0-53.0); IMMATURE GRAN ABSOLUTE AUTO 0.08 K/mm3 (0.00-0.10); IMMATURE GRAN PERCENT AUTO 1 % (0-1); LYMPHOCYTES ABSOLUTE AUTO 2.08 K/mm3 (0.84-5.20); LYMPHOCYTES PERCENT AUTO 18 % (21-46); MONOCYTES ABSOLUTE AUTO 1.27 K/mm3 (0.16-1.47); MONOCYTES PERCENT AUTO 11 % (4-13); Mean Corpuscular HGB 28.1 pg (26.0-34.0); Mean Corpuscular HGB Conc 32.7 g/dL (31.5-36.5); Mean Corpuscular Volume 86 fL (80-100); Mean Platelet Volume 9.1 fL (9.1-12.4); NEUTROPHILS ABSOLUTE AUTO 7.61 K/mm3 (1.96-9.15); NEUTROPHILS PERCENT AUTO 66 % (41-73); Platelet Count 287 K/mm3 (150-400); RDW Coefficient Variation 12.9 % (11.7-14.2); RDW Standard Deviation 40.2 fL (35.1-46.3); White Blood Cell Count 11.45 K/mm3 (4.00-11.30)
[2020-07-27 03:58] LABS: Bun/Creatinine Ratio 28.2 (12.0-20.0); Calcium, Blood 7.7 mg/dL (8.5-10.1); Creatinine, Blood 1.42 mg/dL (0.60-1.20); Potassium, Blood 2.8 mmol/L (3.5-5.5)
--- NOTE | 2020-07-27 05:57 | NUR ---
SHIFT SUMMARY PT WAS IN A GOOD MOOD, HELPFUL AND COOPERATIVE WITH CARE. CHANGED DRESSINGS ON BLE. OLD DRESSING WAS SATURATED WITH SEROSANGUINEOUS AND PURULENT DRAINAGE. STRONG FOUL ODOR FROM WOUNDS. AREA CLEANED WITH WOUND JOURNEY LINEMAN AND PATTED DRY. NEW DRESSING APPLIED, ABD PADS WRAPPED WITH GAUZE. FEET WERE SCRUBBED BY NKECHI PEREZ, LARGE AMOUNT OF DRIED BLOOD AND DIRT REMOVED AND FEET CLEANED. PT STATED NO PAIN DURING DRESSING CHANGE OR CLEANING. PT WAS HAVING DIFFICULTIES URINATING, BLADDER SCAN SHOWED LESS THAN 100ML'S, PT THEN VOIDED >600ML. DID NOT HAVE TO STRAIGHT CATH. HR AND BP STABLE T/O SHIFT, PT ABLE TO SLEEP MOST OF THE NIGHT. WILL CONTINUE TO MONITOR UNTIL SHIFT CHANGE.
--- NOTE | 2020-07-27 09:12 | NUR ---
MORNING SHIFT CHANGE REPORT RECE[facility]ED RE[facility] FROM [facility] SH[facility]. PT DENIES PAIN AT THIS TIME, DENIES DISCOMFORT. LUNG AND HEART SOUNDS/RHYTHM WNL. 3+ PITTING EDEMA BILATERAL LOWER EXTREMITIES, REDNESS AND HOT TO THE TOUCH, FEET TURNED OUTWARD, ABD PADS AND KERLEX COVER BILATERAL WOUNDS ON THE RAMIREZ WHERE THE CELLULITIS IS PRESENT. SOME WEEPING IS NOTICIBLE FROM THESE WOUNDS. UNABLE TO FEEL PULSES BILATERALLY ON THE FEET, THE DOPPERLER WAS USED AND I WAS ABLE TO HEAR FAINT PULSES ON BOTH FEET. NS IS INFUSING ALONG WITH KCL AND AN ANTIBIOTIC, THESE WILL BE REPLACED WITH MORNING MEDS, AND THEN THE FLUIDS WILL BE TKVO. HX OF DM2, HTN, COPD. PT HAS BEEN HOME WITH MISMANAGED CARE, WATERSHED TENDER CONSULT HAS BEEN ORDERED
--- NOTE | 2020-07-27 12:54 | NUR ---
WOUND CARE ASSESSMENT, DRESSING PT HAS BILATERAL LOWER EXTREMITY WOUNDS AND CELLULITIS. PT STATES THE WOUNDS BEGAN ABOUT 2 OR 3 WEEKS AGO. RN REMOVED THE DRESSINGS, AND COLLECTED WOUND CULTURE SPECIMEN. CLEANSED WITH WOUND CLEANING SPRAY AND STERILE WATER USED TO REMOVE ANY DRESSINGS THAT WERE STUCK TO THE WOUNDS. LEFT LOWER EXTREMITY: CLEANED WITH WOUND SPRAY, DRESSED WITH SAFETAC MEPITEL DRESSING, COVERED WITH NON ADHESIVE MEPITEL ABSORBITIVE PAD, THEN WRAPED IN 1 ROLL KURLEX, SINGLE PIECE OF TAPE USED TO TAPE THE END OF THE KURLEX TO ITSELF TO HOLD IN PLACE, NO TAPE OR ADHESIVE WAS PLACED ON THE WOUND BED. THE WOUND IS FULL THICKNESS, WEEPING ODOROUS PERULENT DRAINAGE AND SERISANGUENOUS DRAINAGE. SLOUGH PRESENT ABOUT 50% OVER THE WOUND BED RIGHT LOWER EXTREMITY: DRESSED, CLEANED AND PRESENTS SIMILAR TO THE ABOVE WOUND DOCUMENTATION FOR THE LEFT LOWER EXTREMITY. THERE IS MORE SERISANGUENOUS DRAINAGE ON THE CALF OF THE RIGHT LOWER EXTREMEITY SO 1 ADDITIONAL MEPITAL ABSORBITIVE DRESSING WAS PLACED BEFORE THE KURLEX AND TAPE TO SECURE. PT TOLERATED WOUND CARE WELL, NEW ABSORBATIVE PADS/CHUX WERE PLACED UNDER PT'S LEGS TO PROTECT THE BED FROM DRAINAGE.
[2020-07-27 14:47] LABS: Bun/Creatinine Ratio 25.2 (12.0-20.0); Calcium, Blood 7.7 mg/dL (8.5-10.1); Creatinine, Blood 1.43 mg/dL (0.60-1.20); Potassium, Blood 3.3 mmol/L (3.5-5.5)
--- NOTE | 2020-07-27 16:34 | NUR ---
PT REPORTED NEEDING TO USE THE URINAL AROUND 1500, RN PLACED THE URINAL AT THE GENITAL AREA AND PT STATED HE WOULD CALL WHEN HE WAS DONE. RN CHECKED ON HIM SEVERAL TIMES AND HE HAD NOT VOIDED BUT WAS STARTING TO FEEL PAINFUL IN THE BLADDER AREA AND HAVING DISCOMFORT. RN PERFORMED A BLADDER SCAN AND IT MEASURED GREATER THAN 999ML. PT HAS HISTORY OF URINARY RETENTION. RN PERFORMED A STRAIGHT CATH WITH A 14FR ALONG WITH MANJIT SU RN AT THE BEDSIDE. 800ML OF YELLOW, CLEAR URINE WAS DRAINED WITH THE STRAIGHT CATHETER. PT REPORTED FEELING MORE COMFORTABLE AFTERWARDS. DURING PHYSICAL THERAPY TODAY THE WOUND BANDAGE ON THE RIGHT LEG BEGAN TO SLIP OFF AND NEEDED TO BE REPLACED. NO CHANGES IN WOUND ASSESSMENT FROM EARILER DRESSING AND ASSSESSMENT. SAFETAC, MEPITAL AND KERLEX WERE REPLACED ON THE RIGHT LEG. CBG'S AND VS HAVE REMAINED STABLE THROUGHOUT THE SHIFT. PT WAS APPROVED FOR TRANSFER TO MEDICAL FLOOR AND D/C TELE. REPORT WAS GIVEN TO VIDHYA VARMA RN ON THE MEDICAL UNIT AND PT WAS TRANSFERRED VIA HOSP. BED TO THE UNIT ACCOMPANIED BY [facility]. THROUGHOUT THE SHIFT THE PT DENIED PAIN AND DISCOMFORT OTHER THAN WHAT WAS ASSOSICATED WITH THE FULL BLADDER. PT WAS TURNED Q2 HOURS, AND WOUND DRESSINGS WERE CHANGED NEEDED. RN SPOKE WITH PT'S DAUGHTER RADHA AFTER HE GAVE AUTHORIZATION VERBALLY, HIS DAUGHTER WANTED AN UPDATE AND TO BE PUT IN TOUCH WITH [employer] CONTRACTOR TO HELP WITH HIS EVENTUAL DISCHARGE TO SNF IF POSSIBLE. DEREK LI IS ASSIGNED TO PT FOR DISCHARGE PLANNING AND [employer]OR AND WAS CONTACTED ABOUT REACHING OUT TO PT'S DAUGHTER, RADHA.
--- NOTE | 2020-07-27 18:45 | NUR ---
SHIFT SUMMARY PT TRANSFERRED FROM PCU 5. A/O X4 AND BED BOUND AT BASELINE. Q2 TURNS AND CONT./INCONT. USES THE URINAL AT BEDSIDE BUT NOT ALWAYS SURE WHEN HE HAS TO GO. STRAIGHT CATHED PRIOR TO TRANSFER DUE TO URINE RETENTION. VSS; WCTM.
[2020-07-28 04:21] LABS: BASOPHILS ABSOLUTE AUTO 0.02 K/mm3 (0.00-0.23); BASOPHILS PERCENT AUTO 0 % (0-2); EOSINOPHILS ABSOLUTE AUTO 0.39 K/mm3 (0.00-0.68); EOSINOPHILS PERCENT AUTO 5 % (0-6); Hematocrit 26.7 % (37.0-53.0); Hemoglobin 8.8 g/dL (13.5-17.5); IMMATURE GRAN ABSOLUTE AUTO 0.07 K/mm3 (0.00-0.10); IMMATURE GRAN PERCENT AUTO 1 % (0-1); LYMPHOCYTES ABSOLUTE AUTO 1.66 K/mm3 (0.84-5.20); LYMPHOCYTES PERCENT AUTO 19 % (21-46); MONOCYTES ABSOLUTE AUTO 1.07 K/mm3 (0.16-1.47); MONOCYTES PERCENT AUTO 12 % (4-13); Mean Corpuscular HGB 28.6 pg (26.0-34.0); Mean Corpuscular Volume 87 fL (80-100); Mean Platelet Volume 9.4 fL (9.1-12.4); NEUTROPHILS ABSOLUTE AUTO 5.54 K/mm3 (1.96-9.15); NEUTROPHILS PERCENT AUTO 63 % (41-73); Platelet Count 300 K/mm3 (150-400); RDW Coefficient Variation 12.8 % (11.7-14.2); RDW Standard Deviation 40.3 fL (35.1-46.3); Red Blood Cell Count 3.08 M/mm3 (4.30-5.90); White Blood Cell Count 8.75 K/mm3 (4.00-11.30)
[2020-07-28 04:39] LABS: Bun/Creatinine Ratio 23.8 (12.0-20.0); Calcium, Blood 7.5 mg/dL (8.5-10.1); Creatinine, Blood 1.3 mg/dL (0.60-1.20); Potassium, Blood 2.5 mmol/L (3.5-5.5)
--- NOTE | 2020-07-28 06:39 | NUR ---
SHIFT SUMMARY PT IS A 75 Y/O MALE, ADMITTED FOR BLE CELLULITIS. HE IS A&O X 3, FORGETFUL AT TIMES, AND WHEELCHAIR BOUND AT BASELINE. NO C/O PAIN, NAUSEA OR SOB. VITAL SIGNS STABLE. PT SLEPT WELL. NO ACUTE CHANGES IN PT CONDITION NOTED DURING THE NIGHT. WILL CONTINUE TO MONITOR AND TREAT PER EMAR UNTIL HAND OFF TO DAY SHIFT RN.
[2020-07-28 10:11] LABS: Anion Gap 7 mmol/L (6-16); Blood Urea Nitrogen 29 mg/dL (8-24); Bun/Creatinine Ratio 24.2 (12.0-20.0); CO2, Blood 27 mmol/L (21-32); Calcium, Blood 7.7 mg/dL (8.5-10.1); Chloride, Blood 107 mmol/L (98-108); Glomerular Filtration Rate >60 (60-); Glucose, Blood 207 mg/dL (70-99); Potassium, Blood 2.6 mmol/L (3.5-5.5); Sodium, Blood 141 mmol/L (136-145)
[2020-07-28 15:18] LABS: Bun/Creatinine Ratio 22.4 (12.0-20.0); Calcium, Blood 8.1 mg/dL (8.5-10.1); Creatinine, Blood 1.25 mg/dL (0.60-1.20); Potassium, Blood 3.1 mmol/L (3.5-5.5)
--- NOTE | 2020-07-28 15:47 | NUR ---
NIKKO: SPOKE WITH DR. MINER RE: NIKKO. SHE WOULD LIKE THE SECOND BAG OF IV KCL TO BE GIVEN. NOTED AND ADMINISTERED.
--- NOTE | 2020-07-28 18:00 | NUR ---
DISCHARGE SUMMARY: PATIENT REPORTED SOME GENERALIZED PAIN DURING THE SHIFT, BUT DENIED NEED FOR INTERVENTIONS. PATIENT APPEARED COMFORTABLE AND WAS ABLE TO VERBALIZE WHEN A MOVEMENT WAS PAINFUL (EX: LIFTING LEFT LEG). PATIENT DENIED NAUSEA. PATIENT ATE 100% OF MEALS TODAY. PATIENT HAD A SOFT BOWEL MOVEMENT. PATIENT CONTINENT, BUT UNABLE TO GET THE BRIEF OPEN IN TIME. PATIENT VOIDED WITHOUT DIFFICULTY A LARGE AMOUNT. PATIENT DENIED FEELINGS OF BLADDER DISCOMFORT. PATIENT TOLERATED POTASSIUM REPLACEMENT WELL, WITH MINIMAL BURNING ON THE LAST BAG. PATIENT GREATLY APPRECIATIVE OF THE CARE RECEIVED.
--- NOTE | 2020-07-28 18:03 | NUR ---
DIFFICULTY BREATHING: LATE ENTRY FOR 06:55 AT BEDSIDE REPORT, THE PATIENT REPORTED DIFFICULTY BREATHING. PATIENT REPORTED THAT HE USES AN INHALER AT HOME. CALLED RT AND DR. LOCKE. NEW ORDER RECEIVED FOR BD PROTOCOL. PATIENT MEDICATED ACCORDINGLY. PATIENT REPORTED IMPROVEMENT IN BREATHING AND DENIED SOB.
--- NOTE | 2020-07-28 18:05 | NUR ---
KCL: LATE ENTRY FOR 3:[address] MINER ABOUT THE PATIENT'S KCL. SHE REQUESTED THAT THE SECOND BAG OF KCL BE GIVEN TO THE PATIENT. SHE ALSO DISCUSSED NEW KCL ORDERS THAT WERE PLACED. PATIENT MEDICATED PER ORDERS.
[2020-07-28] MEDS ORDERED: FURO40 PO (18:08)
[2020-07-28] MEDS ORDERED: ACET325 PO (18:08)
[2020-07-28] MEDS ORDERED: HUMALOG KW100 UNIT/1 SC (18:10)
[2020-07-28] MEDS ORDERED: NYSTOP15 GM TOP (18:12)
[2020-07-28] MEDS ORDERED: VISBIOME PROBIOTIC (18:13)
[2020-07-28] MEDS ORDERED: CEPH250A PO (18:15)
[2020-07-28] MEDS ORDERED: LEVOFLOXACIN750 MG (18:16)
[2020-07-28] MEDS ORDERED: POTCHL20ER PO (18:18)
== END 2020-07-28 17:50 | DRG 871 ==
LOC: ER 20:55 → PCU 07-26 00:01 → MEDS 07-27 16:29
PROVIDERS: Emergency Medicine; Internal Medicine; Student in an Organized Health Care Education/Training Program; ADMIT Internal Medicine
DX: A41.9 Sepsis, unspecified organism (principal); R65.21 Severe sepsis with septic shock; L03.115 Cellulitis of right lower limb; L03.116 Cellulitis of left lower limb; Z20.828 Contact with and (suspected) exposure to other viral communicable diseases; N17.9 Acute kidney failure, unspecified; Z87.891 Personal history of nicotine dependence; E11.40 Type 2 diabetes mellitus with diabetic neuropathy, unspecified; J44.9 Chronic obstructive pulmonary disease, unspecified; Z79.4 Long term (current) use of insulin; Z99.81 Dependence on supplemental oxygen; E11.22 Type 2 diabetes mellitus with diabetic chronic kidney disease; N18.30 Chronic kidney disease, stage 3 unspecified; K21.9 Gastro-esophageal reflux disease without esophagitis; E11.65 Type 2 diabetes mellitus with hyperglycemia; E86.0 Dehydration; E87.6 Hypokalemia; Z74.09 Other reduced mobility
CPT/HCPCS: 36415; 51701; 71045; 80048; 80053; 82550; 82553; 82947; 83605; 83880; 85025; 87040; 87070; 87075; 87077; 87186; 87205; 93005; 93010; 94640; 94760; 96365; 96375; 97161; 97166; 97530; 99285-25; A9270; A9270-GY; J0690; J0713; J1650; J2543; J3370; J3480; J7030; J7050; U0004

== ENCOUNTER 2020-10-20 02:22 | Emergency (ER) | payer MEDICARE ==
[~2020-10-20] VITALS: Ht 175.3 cm; Wt 108.9 kg
[~2020-10-20 02:22] MED LIST changes: +CEPH250A PO; +HUMALOG KW100 UNIT/1 SC; +LEVOFLOXACIN750 MG; +NYSTOP15 GM TOP; +VISBIOME PROBIOTIC
[2020-10-20 04:01] LABS: BASOPHILS ABSOLUTE AUTO 0.04 K/mm3 (0.00-0.23); BASOPHILS PERCENT AUTO 0 % (0-2); EOSINOPHILS ABSOLUTE AUTO 0.29 K/mm3 (0.00-0.68); EOSINOPHILS PERCENT AUTO 3 % (0-6); Hematocrit 34.5 % (37.0-53.0); Hemoglobin 10.5 g/dL (13.5-17.5); IMMATURE GRAN ABSOLUTE AUTO 0.06 K/mm3 (0.00-0.10); IMMATURE GRAN PERCENT AUTO 1 % (0-1); LYMPHOCYTES PERCENT AUTO 20 % (21-46); MONOCYTES ABSOLUTE AUTO 1.39 K/mm3 (0.16-1.47); MONOCYTES PERCENT AUTO 12 % (4-13); Mean Corpuscular HGB 26.6 pg (26.0-34.0); Mean Corpuscular HGB Conc 30.4 g/dL (31.5-36.5); Mean Corpuscular Volume 87 fL (80-100); Mean Platelet Volume 10.2 fL (9.1-12.4); NEUTROPHILS ABSOLUTE AUTO 7.31 K/mm3 (1.96-9.15); NEUTROPHILS PERCENT AUTO 65 % (41-73); Platelet Count 367 K/mm3 (150-400); RDW Coefficient Variation 13.1 % (11.7-14.2); RDW Standard Deviation 42.2 fL (35.1-46.3); Red Blood Cell Count 3.95 M/mm3 (4.30-5.90); White Blood Cell Count 11.29 K/mm3 (4.00-11.30)
[2020-10-20 04:15] LABS: Alanine Aminotransfer (ALT/SGP 27 U/L (12-78); Albumin, Blood 2.7 g/dL (3.4-5.0); Albumin/Globulin Ratio 0.5 (0.8-1.8); Alk Phos 83 U/L (50-136); Anion Gap 5 mmol/L (6-16); Aspartate Aminotrans (AST/SGOT 42 U/L (12-37); Bilirubin, Total 0.3 mg/dL (0.1-1.0); Blood Urea Nitrogen 20 mg/dL (8-24); Bun/Creatinine Ratio 18.5 (12.0-20.0); CO2, Blood 30 mmol/L (21-32); Calcium, Blood 8.7 mg/dL (8.5-10.1); Chloride, Blood 105 mmol/L (98-108); Creatinine, Blood 1.08 mg/dL (0.60-1.20); Globulin, Blood 5.8 g/dL (2.2-4.0); Glomerular Filtration Rate >60 (60-); Glucose, Blood 156 mg/dL (70-99); Potassium, Blood 4.2 mmol/L (3.5-5.5); Sodium, Blood 140 mmol/L (136-145); Total Protein, Blood 8.5 g/dL (6.4-8.2)
[2020-10-20 10:21] LABS: Influenza A, PCR Negative (NEGATIVE); Influenza B, PCR Negative (NEGATIVE); Resp Syncytial Virus, PCR Negative (NEGATIVE); SARS-Cov-2 (COVID-19) PCR, MMC Negative (NEGATIVE)
[2020-10-20] MEDS ORDERED: Cephalexin500 MG PO (10:27)
[2020-12-20] MEDS ORDERED: FURO80 PO (18:32)
[2020-12-20] MEDS ORDERED: POTCHL20ER PO (18:32)
[2020-12-20] MEDS ORDERED: METO25 PO (18:36)
[2020-12-20] MEDS ORDERED: METO2.5 PO (18:36)
[2020-12-20] MEDS ORDERED: AMIL5 PO (18:37)
[2020-12-24] MEDS ORDERED: BUME1 PO (14:32)
[2020-12-24] MEDS ORDERED: CRANBERRY500 M1 PO (14:32)
[2020-12-24] MEDS ORDERED: SENN187 PO (14:33)
[2020-12-24] MEDS ORDERED: EPLE25 PO (14:33)
[2020-12-24] MEDS ORDERED: FERSU300 PO (14:33)
[2021-04-09] MEDS ORDERED: TAMSULOSIN HCL0.4 M1 PO (17:09)
[2021-04-09] MEDS ORDERED: METO2.5 PO (17:11)
[2021-04-09] MEDS ORDERED: CEFP200 PO (22:36)
== END 2020-10-20 12:29 | disposition home or self-care (01) ==
LOC: ER 02:22
PROVIDERS: Emergency Medicine; Student in an Organized Health Care Education/Training Program
DX: M17.0 Bilateral primary osteoarthritis of knee (principal); R26.2 Difficulty in walking, not elsewhere classified; L03.116 Cellulitis of left lower limb; L03.115 Cellulitis of right lower limb; Z79.4 Long term (current) use of insulin; Z79.899 Other long term (current) drug therapy; Z20.822 Contact with and (suspected) exposure to COVID-19
CPT/HCPCS: 0241U; 71045; 80053; 82947; 83605; 85025; 87040; 93005; 93010; 94640; 97110; 97162; 97166; 97530; 99284-25; A9270; J7030

== ENCOUNTER → 2021-01-27 | Outpatient (CLI) | payer MEDICARE ==
[~2021-01-27] MED LIST changes: +ALBU90OI INH; +AMLODIPINE BESYL5 MG PO; +BUME1 PO; +CEFP200 PO; +CRANBERRY500 M1 PO; +Cephalexin500 MG PO; +EPLE25 PO; +FERSU300 PO; +FOLBIC PO; +FURO80 PO; +LEVO750 PO; +METO25 PO; +ONDA4ODT MM; +SENN187 PO; +TAMSULOSIN HCL0.4 M1 PO
[2021-01-27 15:30] LABS: Appearance, Urine Turbid (Clear); Bilirubin, Urine Neg (Neg); Blood, Urine 4+ (Neg); Color, Urine Yellow (P-Yellow); Glucose Qualitative, Urine Neg (Neg); Ketones, Urine Neg (Neg); Leukocyte Esterase, Urine 3+ (Neg); Nitrite, Urine Pos (Neg); Protein, Urine 3+ (Neg); Specific Gravity, Urine 1.015 (1.003-1.022); Urobilinogen, Urine NORM (Normal)
[2021-01-27 15:55] LABS: Bacteria Many /hpf; Red Blood Cells, Urine TNTC /hpf (0-2); Squamous Epithelial Cells Not Seen /hpf (Few); White Blood Cells, Urine TNTC /hpf (0-5)
== END | disposition home or self-care (01) ==
LOC: LAB 14:00 → LAB SHORT 14:00 → LAB FUT 01-20 13:45 → EDSTATUS 01-20 13:45
PROVIDERS: Legal Medicine
DX: N39.0 Urinary tract infection, site not specified (principal)
CPT/HCPCS: 81001; 87077; 87086; 87186

== ENCOUNTER 2021-01-30 10:31 | Inpatient (IN) | payer MEDICARE ==
[~2021-01-30] VITALS: Ht 175.3 cm; Wt 112.0 kg
[~2021-01-30 10:31] MED LIST changes: -ALBU90OI INH; -AMLODIPINE BESYL5 MG PO; -CEFP200 PO; -FOLBIC PO; -LEVO750 PO; -ONDA4ODT MM; -TAMSULOSIN HCL0.4 M1 PO
[2021-01-30 11:26] LABS: Source, Urine Catheter
[2021-01-30 11:26] LABS: BASOPHILS ABSOLUTE AUTO 0.02 K/mm3 (0.00-0.23); BASOPHILS PERCENT AUTO 0 % (0-2); EOSINOPHILS ABSOLUTE AUTO 0.06 K/mm3 (0.00-0.68); EOSINOPHILS PERCENT AUTO 1 % (0-6); Hemoglobin 9.9 g/dL (13.5-17.5); IMMATURE GRAN ABSOLUTE AUTO 0.08 K/mm3 (0.00-0.10); IMMATURE GRAN PERCENT AUTO 1 % (0-1); LYMPHOCYTES ABSOLUTE AUTO 1.35 K/mm3 (0.84-5.20); LYMPHOCYTES PERCENT AUTO 11 % (21-46); MONOCYTES ABSOLUTE AUTO 1.06 K/mm3 (0.16-1.47); MONOCYTES PERCENT AUTO 8 % (4-13); Mean Corpuscular HGB 24.9 pg (26.0-34.0); Mean Corpuscular HGB Conc 30.9 g/dL (31.5-36.5); Mean Corpuscular Volume 80 fL (80-100); NEUTROPHILS ABSOLUTE AUTO 10.11 K/mm3 (1.96-9.15); NEUTROPHILS PERCENT AUTO 80 % (41-73); RDW Standard Deviation 43.8 fL (35.1-46.3); Red Blood Cell Count 3.98 M/mm3 (4.30-5.90); White Blood Cell Count 12.68 K/mm3 (4.00-11.30)
[2021-01-30 11:31] LABS: Mean Platelet Volume 9.2 fL (9.1-12.4); Platelet Count 379 K/mm3 (150-400)
[2021-01-30 11:39] LABS: Appearance, Urine Turbid (Clear); Bilirubin, Urine Neg (Neg); Blood, Urine 4+ (Neg); Color, Urine Yellow (P-Yellow); Glucose Qualitative, Urine Neg (Neg); Ketones, Urine Neg (Neg); Leukocyte Esterase, Urine 3+ (Neg); Nitrite, Urine Neg (Neg); Protein, Urine 3+ (Neg); Specific Gravity, Urine 1.015 (1.003-1.022); Urobilinogen, Urine NORM (Normal)
[2021-01-30 11:40] LABS: Alanine Aminotransfer (ALT/SGP 33 U/L (12-78); Albumin/Globulin Ratio 0.3 (0.8-1.8); Alk Phos 84 U/L (50-136); Anion Gap 5 mmol/L (6-16); Aspartate Aminotrans (AST/SGOT 66 U/L (12-37); Bilirubin, Total 0.3 mg/dL (0.1-1.0); Blood Urea Nitrogen 15 mg/dL (8-24); Bun/Creatinine Ratio 15.3 (12.0-20.0); CO2, Blood 22 mmol/L (21-32); Calcium, Blood 8.1 mg/dL (8.5-10.1); Chloride, Blood 113 mmol/L (98-108); Creatinine, Blood 0.98 mg/dL (0.60-1.20); Globulin, Blood 6.4 g/dL (2.2-4.0); Glomerular Filtration Rate >60 (60-); Glucose, Blood 67 mg/dL (70-99); Potassium, Blood 4.6 mmol/L (3.5-5.5); Sodium, Blood 140 mmol/L (136-145); Total Protein, Blood 8.4 g/dL (6.4-8.2); Troponin I 0.403 ng/mL (0.000-0.040)
[2021-01-30 12:13] LABS: White Blood Cells, Urine TNTC /hpf (0-5)
[2021-01-30 12:14] LABS: Bacteria Many /hpf; Squamous Epithelial Cells Not Seen /hpf (Few)
[2021-01-30] MEDS ORDERED: BUME1 PO (13:44)
[2021-01-30] MEDS ORDERED: AMLODIPINE BESYL5 MG PO (13:45)
--- NOTE | 2021-01-30 19:12 | NUR ---
SHIFT SUMMARY RAY ARRIVED AROUNF 4PM FROM ER. WOUNDS CLEANED AND REDRESSED, PICTURES TAKEN AND IN CHART. CALLED DR ORTEGA, HE WANTS TELE ON PT. BLADDER SCAN AROUND 1830 SHOWED 500ML IN BLADDER, DR ORTEGA ORDERED STRAIGHT CATH FOR OVER 500ML. SPOKE TO CAREGIVER JACE ON PHONE [phone]. PER ER, PT IS MAX ASSIST OF 3 TO STAND AND PIVOT, PT STATES HE IS MOSTLY BEDBOUND AT BASELINE EXCEPT WHEN HIS CAREGIVER 'LIFTS HIM UP'. PT STATES HE HAS HH [facility] FOR WOUND CARE THREE TIMES A WEEK. MIVF RUNNING. AWAITING TELE BOX. PT ATTEMPTING TO URINATE NOW. REPORT GIVEN TO NIGHT NURSE
[2021-01-30] MEDS ORDERED: FERSU300 PO (20:11)
[2021-01-30] MEDS ORDERED: ALBU90OI INH (20:13)
--- NOTE | 2021-01-30 21:33 | NUR ---
14 PASHTO DELEON CATHETER INSERTED PER ORDER WITH 850 ML IMMEDIATE RETURN OF WHITISH YELLOW URINE. PATIENT TOLERATED WE..
[2021-01-31 03:08] LABS: BASOPHILS ABSOLUTE AUTO 0.02 K/mm3 (0.00-0.23); BASOPHILS PERCENT AUTO 0 % (0-2); EOSINOPHILS ABSOLUTE AUTO 0.12 K/mm3 (0.00-0.68); EOSINOPHILS PERCENT AUTO 2 % (0-6); Hematocrit 24.5 % (37.0-53.0); Hemoglobin 7.6 g/dL (13.5-17.5); IMMATURE GRAN ABSOLUTE AUTO 0.04 K/mm3 (0.00-0.10); IMMATURE GRAN PERCENT AUTO 1 % (0-1); LYMPHOCYTES ABSOLUTE AUTO 1.77 K/mm3 (0.84-5.20); LYMPHOCYTES PERCENT AUTO 22 % (21-46); MONOCYTES ABSOLUTE AUTO 0.96 K/mm3 (0.16-1.47); MONOCYTES PERCENT AUTO 12 % (4-13); Mean Corpuscular HGB 24.8 pg (26.0-34.0); Mean Corpuscular Volume 80 fL (80-100); Mean Platelet Volume 8.7 fL (9.1-12.4); NEUTROPHILS ABSOLUTE AUTO 5.15 K/mm3 (1.96-9.15); NEUTROPHILS PERCENT AUTO 64 % (41-73); Platelet Count 300 K/mm3 (150-400); RDW Coefficient Variation 15.1 % (11.7-14.2); RDW Standard Deviation 44.2 fL (35.1-46.3); Red Blood Cell Count 3.07 M/mm3 (4.30-5.90); White Blood Cell Count 8.06 K/mm3 (4.00-11.30)
[2021-01-31 03:35] LABS: Alanine Aminotransfer (ALT/SGP 22 U/L (12-78); Albumin, Blood 1.5 g/dL (3.4-5.0); Albumin/Globulin Ratio 0.3 (0.8-1.8); Alk Phos 63 U/L (50-136); Anion Gap 6 mmol/L (6-16); Aspartate Aminotrans (AST/SGOT 36 U/L (12-37); Bilirubin, Total 0.2 mg/dL (0.1-1.0); Blood Urea Nitrogen 19 mg/dL (8-24); Bun/Creatinine Ratio 17.6 (12.0-20.0); CO2, Blood 22 mmol/L (21-32); Calcium, Blood 7.4 mg/dL (8.5-10.1); Chloride, Blood 109 mmol/L (98-108); Creatinine, Blood 1.08 mg/dL (0.60-1.20); Glomerular Filtration Rate >60 (60-); Glucose, Blood 115 mg/dL (70-99); Potassium, Blood 4.3 mmol/L (3.5-5.5); Sodium, Blood 137 mmol/L (136-145); Total Protein, Blood 6.5 g/dL (6.4-8.2)
--- NOTE | 2021-01-31 03:54 | NUR ---
PATIENT SLEPT WELL OVERNIGHT. NO COMPLAINTS OF SOB ON ROOM AIR. STILL REFUSING CPAP. TEMP EARLY EVENING WAS 99.7F. PATIENT WAS DIFFICULT TO PERSUADE, BUT FINALLY AGREED TO TAKE TYLENOL TO TREAT TEMP. WHEN ASKED IF HE WAS HAVING ANY OTHER PAIN, HE RESPONDED "YES, OF COURSE. ALWAYS". HE IS QUITE DETERMINED TO NOT TAKE ANYTHING FOR PAIN AND STATED THAT HIS DR TOLD HIM NEVER TO TAKE NSAIDS. IT WAS EXPLAINED THAT APAP IS NOT AN NSAID, AND THEN PATIENT AGREED TO TAKE IT. PLEASE SEE PHOTOS INSIDE FRONT OF CHART OF PATIENTS WOUNDS.
--- NOTE | 2021-01-31 07:50 | NUR ---
PATIENT SLEPT COMFORTABLY OVERNIGHT FROM JUST AFTER ADMISSION. dAUGHTER NOAH WHO IS HER MOTHERS POWER OF MANAGER MUSIC AND LIVESTOCK DEALER CAREGIVER IS FEELING THAT HER MOTHER'S NEEDS WOULD BE BETTER MET IN AN ASSISTED LIVING FACILITY. Terrence HAS STOPPED TAKING HER MEDICATIONS AND IS UNABLE TO SUFFICIENTLY PERFORM HYGIENE OR ANY SELF CARE INDEPENDENTLY AND HAS REFUSED HOME HEALTH, SR SERVICES AND FAMILY ASSISTANCE. SHE HAS BEGUN SCRATCHING HOLES IN HER SKIN ALL OVER HERSELF (ESPECIALLY HER LEGS.) BOTH HEELS ARE BRIGHT RED (NO BREAKDOWN YET) AND SEVERE REDNESS AND YEAST UNDER PANNUS AND UNDER BREASTS (UNDER RIGHT BREAST IS THE WORSE). PATIENT HAS NO COMPLAINTS OF PAIN, IS PLEASANT AND COOPERATIVE, AND THINKS HER FAMILY WORRIES TOO MUCH ABOUT HER.
[2021-01-31 08:09] LABS: Source, Urine Catheter
[2021-01-31 08:20] LABS: Bilirubin, Urine Neg (Neg); Blood, Urine 2+ (Neg); Glucose Qualitative, Urine Neg (Neg); Ketones, Urine Neg (Neg); Leukocyte Esterase, Urine 3+ (Neg); Nitrite, Urine Neg (Neg); Protein, Urine 2+ (Neg); Specific Gravity, Urine 1.015 (1.003-1.022); Urobilinogen, Urine NORM (Normal)
[2021-01-31 08:30] LABS: Appearance, Urine Hazy (Clear); Bacteria Rare /hpf; Color, Urine Yellow (P-Yellow); Squamous Epithelial Cells Not Seen /hpf (Few)
[2021-01-31 17:55] LABS: C-REACTIVE PROTEIN, EXT RANGE 8.25 mg/dL (0.000-0.300); Percent Saturation 10.6 % (20.0-50.0)
--- NOTE | 2021-01-31 18:24 | NUR ---
PT AOX3 AND COOPERATIVE OF CARE. PT DENIES PAIN AT THIS TIME. PT NEED REPOSTIONED EVERY COUPLE HOURS. PT USES CALL LIGHT APPROPRIATELY. PT IS BED REST NO DISTRESS NOTED AT THIS TIME.
[2021-02-01 04:58] LABS: BASOPHILS ABSOLUTE AUTO 0.02 K/mm3 (0.00-0.23); BASOPHILS PERCENT AUTO 0 % (0-2); EOSINOPHILS ABSOLUTE AUTO 0.22 K/mm3 (0.00-0.68); EOSINOPHILS PERCENT AUTO 3 % (0-6); Hemoglobin 7.3 g/dL (13.5-17.5); IMMATURE GRAN ABSOLUTE AUTO 0.07 K/mm3 (0.00-0.10); IMMATURE GRAN PERCENT AUTO 1 % (0-1); LYMPHOCYTES ABSOLUTE AUTO 1.73 K/mm3 (0.84-5.20); LYMPHOCYTES PERCENT AUTO 25 % (21-46); MONOCYTES ABSOLUTE AUTO 0.85 K/mm3 (0.16-1.47); MONOCYTES PERCENT AUTO 12 % (4-13); Mean Corpuscular HGB 24.6 pg (26.0-34.0); Mean Corpuscular HGB Conc 30.4 g/dL (31.5-36.5); Mean Corpuscular Volume 81 fL (80-100); Mean Platelet Volume 9.1 fL (9.1-12.4); NEUTROPHILS ABSOLUTE AUTO 4.04 K/mm3 (1.96-9.15); NEUTROPHILS PERCENT AUTO 58 % (41-73); Platelet Count 305 K/mm3 (150-400); RDW Coefficient Variation 15.2 % (11.7-14.2); RDW Standard Deviation 44.7 fL (35.1-46.3); Red Blood Cell Count 2.97 M/mm3 (4.30-5.90); White Blood Cell Count 6.93 K/mm3 (4.00-11.30)
[2021-02-01 05:14] LABS: Anion Gap 4 mmol/L (6-16); Blood Urea Nitrogen 16 mg/dL (8-24); Bun/Creatinine Ratio 16.1 (12.0-20.0); CO2, Blood 24 mmol/L (21-32); Calcium, Blood 7.4 mg/dL (8.5-10.1); Chloride, Blood 107 mmol/L (98-108); Creatinine, Blood 0.99 mg/dL (0.60-1.20); Glomerular Filtration Rate >60 (60-); Glucose, Blood 122 mg/dL (70-99); Potassium, Blood 3.9 mmol/L (3.5-5.5); Sodium, Blood 135 mmol/L (136-145)
--- NOTE | 2021-02-01 07:06 | NUR ---
FEDERAL APPELLATE CLERK SUMMARY PT A/O X3-4. SLEPT WELL TONIGHT. DENIED PAIN, NAUSEA, SOB. DELEON PATENT AND DRAINING TO GRAVITY. NO ACUTE CHANGES. ROOM AIR. CALL LIGHT WITHIN REACH. REPORT GIVEN TO ONCOMING RN.
--- NOTE | 2021-02-01 12:03 | NUR ---
Patient is sitting on a chair and alert. Patient tells me about his medical issues and then talks at length about his Baptism erin, his love for his family and the family unit complications that exist. Patient also shares about the homeless young man who has been his care companion for several years and has been exceptional. He expresses his thoughts on , dying and the afterlife. He says that he is ready to but also appreciates each day that he has. I reinforce helpful attitudes and practices and provide therapeutic listening and prayer. Patient responds well and shows signs of being encouraged in his erin. Spiritual care will remain available to patient and family.
--- NOTE | 2021-02-01 17:52 | NUR ---
NO ACUTE CHANGES TODAY. PT CONITUES TO BE AOX3 AND COOPERATIVE OF CARE. PT DENIES PAIN AT THIS TIME. PT CALLS APPROPRIATELY. PT WAS UP IN CHAIR FOR PART OF THE MORNING, BUT WAS A VERY HAEVY TO PERSON STAND AND PIVOT PT WOULD DO BETTER WITH A LIFT FROM BED TO CHAIR AND BACK. PT HAS CONSULT WITH DR COMBS CALLED IN AND IS WAITING FOR EVALUATION OF HIS LE WOUNDS. WILL CONTINUE TO MONITOR NO DISTRESS NOTED AT THIS TIME.
--- NOTE | 2021-02-02 07:39 | NUR ---
A+O, DRESSINGS CHANGED, CALL LIGHT IN REACH, INFUSING, RM AIR, NO ACUTE CHANGES NOTED DURING SHIFT, BSR SHARED WITH NOC NURSE AND PT
[2021-02-02 09:24] LABS: BASOPHILS ABSOLUTE AUTO 0.02 K/mm3 (0.00-0.23); BASOPHILS PERCENT AUTO 0 % (0-2); EOSINOPHILS ABSOLUTE AUTO 0.29 K/mm3 (0.00-0.68); EOSINOPHILS PERCENT AUTO 5 % (0-6); Hematocrit 25.9 % (37.0-53.0); Hemoglobin 7.9 g/dL (13.5-17.5); IMMATURE GRAN ABSOLUTE AUTO 0.05 K/mm3 (0.00-0.10); IMMATURE GRAN PERCENT AUTO 1 % (0-1); LYMPHOCYTES ABSOLUTE AUTO 1.94 K/mm3 (0.84-5.20); LYMPHOCYTES PERCENT AUTO 30 % (21-46); MONOCYTES ABSOLUTE AUTO 0.73 K/mm3 (0.16-1.47); MONOCYTES PERCENT AUTO 11 % (4-13); Mean Corpuscular HGB 24.5 pg (26.0-34.0); Mean Corpuscular HGB Conc 30.5 g/dL (31.5-36.5); Mean Corpuscular Volume 80 fL (80-100); Mean Platelet Volume 9.5 fL (9.1-12.4); NEUTROPHILS ABSOLUTE AUTO 3.48 K/mm3 (1.96-9.15); NEUTROPHILS PERCENT AUTO 53 % (41-73); Platelet Count 286 K/mm3 (150-400); RDW Standard Deviation 44.4 fL (35.1-46.3); Red Blood Cell Count 3.22 M/mm3 (4.30-5.90); White Blood Cell Count 6.51 K/mm3 (4.00-11.30)
--- NOTE | 2021-02-02 15:31 | NUR ---
Spiritual care visit conducted. Patient is lying in bed and alert. Patient tells me about the plan of care the staff is working for him based on the tests, images and examinations that have been performed. Patient asks for some specific scriptures to be copied off for him. I provide therapeutic listening, prayer and inspirational material for patient. I will continue to remain available to patient and family.
--- NOTE | 2021-02-02 15:41 | NUR ---
PATIENT IS ALERT AND ORIENTED; BEDBOUND AT BASELINE. CALLS APPROPRIATELY FOR STAFF ASSIST. VITALS HAVE BEEN STABLE. CONTINUES ON IV ABX WITHOUT S/SX ADVERSE REACTIONS NOTED OR REPORTED. BLE REMAINED WRAPPED THE DRESSINGS ARE C/D/I. NO COMPLAINTS OF PAIN OR DISCOMFORT. PATIENT STATES MINIMAL FEELING TO HIS EXTREMETIES R/T CHRONIC PERIPHERAL NEUROPATHY. PATIENT CONTINUES TO REST IN BED; CALL LIGHT WITHIN REACH.
--- NOTE | 2021-02-02 17:15 | NUR ---
Made a visit to pt today while Dr. Salazar was at bedside. I was able to listen to the conversation regarding possible placement in SNF for ongoing woundcare if needed. Pt told Dr. Salazar "not to get too ahead of yourself". He made it clear he isn't very interested in going to SNF, as he asked if he would still have to go to a SNF if the surgeon "just cut his foot off instead"? and he wasn't joking. Plan to see pt again tomorrow, see how he is feeling, see if he is less anxious and more open to conversation.
[2021-02-03 04:46] LABS: BASOPHILS ABSOLUTE AUTO 0.02 K/mm3 (0.00-0.23); BASOPHILS PERCENT AUTO 0 % (0-2); EOSINOPHILS ABSOLUTE AUTO 0.39 K/mm3 (0.00-0.68); EOSINOPHILS PERCENT AUTO 6 % (0-6); Hematocrit 25.2 % (37.0-53.0); Hemoglobin 7.6 g/dL (13.5-17.5); IMMATURE GRAN ABSOLUTE AUTO 0.06 K/mm3 (0.00-0.10); IMMATURE GRAN PERCENT AUTO 1 % (0-1); LYMPHOCYTES ABSOLUTE AUTO 1.78 K/mm3 (0.84-5.20); LYMPHOCYTES PERCENT AUTO 27 % (21-46); MONOCYTES ABSOLUTE AUTO 0.77 K/mm3 (0.16-1.47); MONOCYTES PERCENT AUTO 12 % (4-13); Mean Corpuscular HGB 24.3 pg (26.0-34.0); Mean Corpuscular HGB Conc 30.2 g/dL (31.5-36.5); Mean Corpuscular Volume 81 fL (80-100); Mean Platelet Volume 9.2 fL (9.1-12.4); NEUTROPHILS PERCENT AUTO 55 % (41-73); Platelet Count 314 K/mm3 (150-400); RDW Coefficient Variation 15.4 % (11.7-14.2); RDW Standard Deviation 44.5 fL (35.1-46.3); Red Blood Cell Count 3.13 M/mm3 (4.30-5.90); White Blood Cell Count 6.72 K/mm3 (4.00-11.30)
[2021-02-03 05:00] LABS: Stool Occult Blood Guaiac 1 Neg (Neg)
--- NOTE | 2021-02-03 05:59 | NUR ---
SHIFT SUMMARY ASSUMED CARE OF PT AT 1900. PT IS A/OX4. HEART SOUNDS REGULAR, LUNG SOUNDS DIMINISHED AT BASES. PT HAD LOOSE, DARK, GRAINY STOOLS, SAME SENT FOR GUIAC PER ORDER, IT WAS NEGATIVE. PT CATHETER IS STILL IN FOR POSSIBLE PROCEDURE TODAY BUT WILL BE D/C AFTERWARDS, URINE CLEAR AND YELLOW. PT DRESSING ON L HEEL WAS CHANGED DUE TO DRAINAGE. DRESSINGS ALSO CHANGE ON PT BUTTOCK. PT C/O NEUROPATHY. PT IS NOT ON GABAPENTIN BUT WAS CURIOUS IF IT WOULD HELP BECAUSE HE DOES NOT LIKE TO TAKE PAIN MEDICATIONS. CALL LIGHT IN REACH, BED IN LOWEST POSITON.
--- NOTE | 2021-02-03 15:58 | NUR ---
Pt resting in bed upon arrival. Pt denies pain at this time. Pt does report mild dyspnea. RT into provide breqthing treatment. Pt reports living in a travel trailer and has 1 route delivery service driver and 1 caregiver that comes to assist daily. Pt reports plan to D/C home today. Pt does not engage in conversation and provides short answers with open ended questions. Pt reports no concerns at this time. Spoke with Dr Salazar and discussed case. Pt to D/C today with home health and possible referral to wound center. Palliative Care will remain available if called upon.
[2021-02-03] MEDS ORDERED: SENN187 PO (16:06)
--- NOTE | 2021-02-03 19:35 | NUR ---
SHIFT SUMMARY- PT IS A/O, PLESANT AND COOPERATIVE. HE IS EATING AND DRINKING WELL. REMOVED HIS DELEON. HE WILL BE DISCHARGED THIS EVENING. HIS BED IS IN THE LOW POSITOION AND CALL LIGHT IS WITHIN REACH.
--- NOTE | 2021-02-04 04:14 | NUR ---
SHIFT SUMMARY ASSUMED CARE OF PT AT 1900. PT IS A/OX4. HEART SOUNDS REGULAR. LUNG SOUNDS DIMINISHED IN BASES. PT REQUESTED BREATHING TREATMENTS T/O THE NIGHT. PT STOOL IS STILL DARK AND LOOSE. PT WOUND DRESSINGS C/D/I. PT CAREGIVER DID NOT END UP COMING TO GET HIM SO PT STAYED T/O THE NIGHT. PT WAS UNABLE TO PEE BY HIMSELF, BLADDER SCAN SHOWED 758. PT WAS STRAIGHT CATHED AND 900ML OF CLEAR YELLOW URINE CAME OUT. PT STATED THAT HE DID NOT EVEN FEEL LIKE HE HAD TO PE. HOSPITALIST STATED THAT DAYSHIFT SHOULD REEVALUATE DISCHARGE IN AM. CALL LIGHT IN REACH, BED IN LOWEST POSITON.
[2021-02-04] MEDS ORDERED: LEVO750 PO (12:02)
[2021-02-04 12:38] LABS: Appearance, Urine Clear (Clear); Bilirubin, Urine Neg (Neg); Blood, Urine Neg (Neg); Color, Urine Yellow (P-Yellow); Glucose Qualitative, Urine Neg (Neg); Ketones, Urine Neg (Neg); Leukocyte Esterase, Urine Neg (Neg); Nitrite, Urine Neg (Neg); Protein, Urine Neg (Neg); Specific Gravity, Urine 1.005 (1.003-1.022); Urobilinogen, Urine NORM (Normal); pH, Urine 6.5 (5.0-8.0)
[2021-02-04 13:05] LABS: Source, Urine Catheter
--- NOTE | 2021-02-04 18:01 | NUR ---
SHIFT SUMMARY- PT IS A/O, PLESANT AND COOPERATIVE. HE IS EATING AND DRINKING WELL. HE WAS RETAINING URINE THIS SHIFT. HE HAD A RENAL ULTRASOUND DONE AND IT SHOWED A BLOCKAGE. DELEON WAS PLACED. DISCHARGE WAS COMPLETED BUT WE WERE UNABLE TO CONTACT HIS CAREGIVER. HIS BED IS IN THE LOW POSITION AND CALL LIGHT IS WITHIN REACH.
--- NOTE | 2021-02-05 04:43 | NUR ---
SHIFT SUMMARY PATIENT HAD NO ACUTE CHANGES OBSERVED. AXOX 3 AND BEDREST. TAKES MEDICATION WHOLE WITH WATER. CBG 187. DELEON PATENT AND DRAINING TO GRAVITY FOR RETENTION. LOPRESSOR 12.5 MG HELD FOR SBP <110. SBP WAS 102/55. AFEBRILE. DENIES PAIN, SOB, AND N/V. CALL LIGHT IN REACH. BED IN LOWEST POSITION. WILL CONTINUE TO MONITOR UNTIL DAY SHIFT NURSE ASSUMES CARE.
[2021-02-05 04:58] LABS: BASOPHILS ABSOLUTE AUTO 0.02 K/mm3 (0.00-0.23); BASOPHILS PERCENT AUTO 0 % (0-2); EOSINOPHILS ABSOLUTE AUTO 0.33 K/mm3 (0.00-0.68); EOSINOPHILS PERCENT AUTO 5 % (0-6); Hematocrit 26.4 % (37.0-53.0); Hemoglobin 7.9 g/dL (13.5-17.5); IMMATURE GRAN ABSOLUTE AUTO 0.05 K/mm3 (0.00-0.10); IMMATURE GRAN PERCENT AUTO 1 % (0-1); LYMPHOCYTES ABSOLUTE AUTO 2.07 K/mm3 (0.84-5.20); LYMPHOCYTES PERCENT AUTO 28 % (21-46); MONOCYTES ABSOLUTE AUTO 0.78 K/mm3 (0.16-1.47); MONOCYTES PERCENT AUTO 11 % (4-13); Mean Corpuscular HGB 24.5 pg (26.0-34.0); Mean Corpuscular HGB Conc 29.9 g/dL (31.5-36.5); Mean Corpuscular Volume 82 fL (80-100); Mean Platelet Volume 9.7 fL (9.1-12.4); NEUTROPHILS ABSOLUTE AUTO 4.12 K/mm3 (1.96-9.15); NEUTROPHILS PERCENT AUTO 56 % (41-73); Platelet Count 297 K/mm3 (150-400); RDW Coefficient Variation 15.2 % (11.7-14.2); RDW Standard Deviation 45.5 fL (35.1-46.3); Red Blood Cell Count 3.22 M/mm3 (4.30-5.90); White Blood Cell Count 7.37 K/mm3 (4.00-11.30)
[2021-02-05 05:28] LABS: Albumin, Blood 1.5 g/dL (3.4-5.0); Anion Gap 2 mmol/L (6-16); Blood Urea Nitrogen 13 mg/dL (8-24); Bun/Creatinine Ratio 13.2 (12.0-20.0); CO2, Blood 31 mmol/L (21-32); Calcium, Blood 7.5 mg/dL (8.5-10.1); Chloride, Blood 103 mmol/L (98-108); Creatinine, Blood 0.99 mg/dL (0.60-1.20); Glomerular Filtration Rate >60 (60-); Glucose, Blood 147 mg/dL (70-99); Magnesium, Blood 1.9 mg/dL (1.6-2.4); Phosphorus, Blood 2.7 mg/dL (2.5-4.9); Potassium, Blood 3.6 mmol/L (3.5-5.5); Sodium, Blood 136 mmol/L (136-145)
--- NOTE | 2021-02-05 19:34 | NUR ---
alert and orintated, call light in reach, dressing changed on legs and replaced where needed on upper thighs, rm air though he does require breathing treatments, saline locked, able to direct care, still unable to contact respiratory care specialist, tried to contact other neighbors but still no contact with respiratory care specialist, bsr shared with pt and noc nurse
--- NOTE | 2021-02-06 05:51 | NUR ---
PT IS A/O, BEDBOUND, WEARING WILDA BOOTS TO BOTH LOWER LEGS. PANCHO BETANCUR, ENMANUEL AC/HS. PT TO D/C TODAY AFTER AT HOME CAREGIVER IS CONTACTED.
[2021-02-06 06:24] LABS: Hematocrit 25.7 % (37.0-53.0); Hemoglobin 7.7 g/dL (13.5-17.5)
--- NOTE | 2021-02-06 19:27 | NUR ---
SHIFT SUMMARY: NO ACUTE EVENTS TO REPORT THIS SHIFT. PT A&O; CALM AND COOPERATIVE WITH CARE. NO C/O PAIN/NAUSEA THIS SHIFT. PT ON BEDREST; PT USES WHEELCHAIR AT BASELINE. MEDICALLY STABLE; AWAITING DISCHARGE. REPORT GIVEN TO ONCOMING RN.
--- NOTE | 2021-02-07 03:44 | NUR ---
SHIFT SUMMARY PATIENT HAD NO ACUTE CHANGES OBSERVED. AOX 3 AND BEDREST. PIV REMAINS INTACT. CBG 156. DENIES PAIN AND N/V. RT IN FOR MULTIPLE BREATHING TX. VSS/AFEBRILE. DELEON PATENT AND DRAINING TO GRAVITY FOR RETENTION. WEARING WILDA BOOT TO BOTH LOWER LEGS. COOPERATIVE WITH CARE. CALL LIGHT IN REACH. BED IN LOWEST POSITION. WILL CONTINUE TO MONITOR UNTIL DAY SHIFT NURSE ASSUMES CARE.
[2021-02-07] MEDS ORDERED: FOLBIC PO (11:38)
--- NOTE | 2021-02-07 14:02 | NUR ---
DISCHARGE SUMMARY PATIENT DISCHARGED TO HOME WITH HOME HEALTH. PATIENT TRANSFERED TO WHEELCHAIR BY CAREGIVER. WOUND DRESSINGS ON COCCIX AND HIPS CHANGED THIS SHIFT. PATIENT A&O THIS SHIFT. IV REMOVED PRIOR TO DISCHARGE. PATIENT AND CAREGIVER IN THE ROOM FOR DISCHARGE INSTRUCTIONS. PATIENT AND CAREGIVER DENY QUESTIONS AT THIS TIME. PATIENT OFF THE FLOOR WITH CAREGIVER.
[2021-04-09] MEDS ORDERED: TAMSULOSIN HCL0.4 M1 PO (17:09)
[2021-04-09] MEDS ORDERED: METO2.5 PO (17:11)
[2021-04-09] MEDS ORDERED: CEFP200 PO (22:36)
== END 2021-02-07 13:45 | disposition home health service (06) | DRG 871 ==
LOC: ER 10:31 → MEDS 14:07 → ENPENDDIS 02-07 12:55 → MEDS 02-07 13:45
PROVIDERS: Emergency Medicine; Internal Medicine; Nurse Practitioner Acute Care; ADMIT Internal Medicine
DX: A41.51 Sepsis due to Escherichia coli [E. coli] (principal); I21.A1 Myocardial infarction type 2; I13.0 Hypertensive heart and chronic kidney disease with heart failure and stage 1 through stage 4 chronic kidney disease, or unspecified chronic kidney disease; I50.32 Chronic diastolic (congestive) heart failure; N39.0 Urinary tract infection, site not specified; L97.309 Non-pressure chronic ulcer of unspecified ankle with unspecified severity; J44.9 Chronic obstructive pulmonary disease, unspecified; E86.0 Dehydration; I95.9 Hypotension, unspecified; D63.8 Anemia in other chronic diseases classified elsewhere; E11.22 Type 2 diabetes mellitus with diabetic chronic kidney disease; N18.30 Chronic kidney disease, stage 3 unspecified; G47.33 Obstructive sleep apnea (adult) (pediatric); Z99.3 Dependence on wheelchair; L89.622 Pressure ulcer of left heel, stage 2; D50.9 Iron deficiency anemia, unspecified; R33.9 Retention of urine, unspecified; E11.42 Type 2 diabetes mellitus with diabetic polyneuropathy
CPT/HCPCS: 36415; 51701; 73620; 76770; 80048; 80053; 80069; 81001; 81003; 82270; 82607; 82728; 82746; 82947; 83540; 83550; 83605; 83690; 83735; 84484; 85014; 85018; 85025; 85651; 86140; 87040; 87077; 87086; 87186; 93005; 93010; 93922; 94640; 94660; 94760; 94762; 96365-59; 96375-59; 97110; 97162; 97166; 97530; 97535; 99285-25; A9270; J1650; J1940; J1956; J7120

== ENCOUNTER 2021-02-07 10:40 | Day surgery (SDC) | payer MEDICARE ==
[~2021-02-07 10:40] MED LIST changes: +ALBU90OI INH; +AMLODIPINE BESYL5 MG PO; +LEVO750 PO
[2021-02-07] MEDS ORDERED: FOLBIC PO (11:38)
[2021-04-09] MEDS ORDERED: TAMSULOSIN HCL0.4 M1 PO (17:09)
[2021-04-09] MEDS ORDERED: METO2.5 PO (17:11)
[2021-04-09] MEDS ORDERED: CEFP200 PO (22:36)
== END 2021-02-07 22:46 | disposition home or self-care (01) ==
LOC: WOUND 10:40
DX: E11.621 Type 2 diabetes mellitus with foot ulcer (principal); L97.522 Non-pressure chronic ulcer of other part of left foot with fat layer exposed; L97.512 Non-pressure chronic ulcer of other part of right foot with fat layer exposed; E11.622 Type 2 diabetes mellitus with other skin ulcer; L97.812 Non-pressure chronic ulcer of other part of right lower leg with fat layer exposed; L97.822 Non-pressure chronic ulcer of other part of left lower leg with fat layer exposed; L89.322 Pressure ulcer of left buttock, stage 2; I87.2 Venous insufficiency (chronic) (peripheral); E11.59 Type 2 diabetes mellitus with other circulatory complications
CPT/HCPCS: A9270

== ENCOUNTER 2021-03-15 05:01 | Day surgery (SDC) | payer MEDICARE ==
[~2021-03-15 05:01] MED LIST changes: -CEFP200 PO; -ONDA4ODT MM; -TAMSULOSIN HCL0.4 M1 PO
[2021-04-09] MEDS ORDERED: TAMSULOSIN HCL0.4 M1 PO (17:09)
[2021-04-09] MEDS ORDERED: METO2.5 PO (17:11)
[2021-04-09] MEDS ORDERED: CEFP200 PO (22:36)
== END 2021-03-15 22:55 | disposition home or self-care (01) ==
LOC: WOUND 05:01
DX: E11.621 Type 2 diabetes mellitus with foot ulcer (principal); L97.512 Non-pressure chronic ulcer of other part of right foot with fat layer exposed; L97.522 Non-pressure chronic ulcer of other part of left foot with fat layer exposed; L97.112 Non-pressure chronic ulcer of right thigh with fat layer exposed; D50.9 Iron deficiency anemia, unspecified; R77.0 Abnormality of albumin; E11.65 Type 2 diabetes mellitus with hyperglycemia; E11.40 Type 2 diabetes mellitus with diabetic neuropathy, unspecified; S91.202S Unspecified open wound of left great toe with damage to nail, sequela; X58.XXXS Exposure to other specified factors, sequela; L03.032 Cellulitis of left toe; Z88.5 Allergy status to narcotic agent; Z87.891 Personal history of nicotine dependence
CPT/HCPCS: 82947; 87070; 87075; 87077; 87147; 87186; 87205; A9270; G0463

== ENCOUNTER → 2021-03-15 | Outpatient (CLI) | payer MEDICARE ==
[~2021-03-15] MED LIST changes: +CEFP200 PO; +FOLBIC PO; +ONDA4ODT MM; +TAMSULOSIN HCL0.4 M1 PO
[2021-03-15 17:33] LABS: Appearance, Urine Cloudy (Clear); Bilirubin, Urine Neg (Neg); Blood, Urine 5+ (Neg); Color, Urine Yellow (P-Yellow); Glucose Qualitative, Urine Neg (Neg); Ketones, Urine Neg (Neg); Leukocyte Esterase, Urine 3+ (Neg); Nitrite, Urine Pos (Neg); Protein, Urine 3+ (Neg); Urobilinogen, Urine NORM (Normal); pH, Urine 6.5 (5.0-8.0)
[2021-03-15 17:48] LABS: Amorphous Light (0-Heavy); Bacteria Many /hpf; Squamous Epithelial Cells Rare /hpf (Few); White Blood Cells, Urine 25-50 /hpf (0-5)
[2021-03-16 10:06] LABS: Stool Occult Bld Immuno 1 Negative (NEGATIVE)
== END | disposition home or self-care (01) ==
LOC: LAB SHORT 15:25 → LAB 15:25
PROVIDERS: Legal Medicine
DX: N39.0 Urinary tract infection, site not specified (principal); R19.4 Change in bowel habit
CPT/HCPCS: 81001; 87077; 87086; 87147; 87186; G0328

== ENCOUNTER 2021-03-22 04:07 | Day surgery (SDC) | payer MEDICARE ==
[2021-04-09] MEDS ORDERED: TAMSULOSIN HCL0.4 M1 PO (17:09)
[2021-04-09] MEDS ORDERED: METO2.5 PO (17:11)
[2021-04-09] MEDS ORDERED: CEFP200 PO (22:36)
== END 2021-03-22 23:43 | disposition home or self-care (01) ==
LOC: WOUND 04:07
DX: E11.621 Type 2 diabetes mellitus with foot ulcer (principal); L97.422 Non-pressure chronic ulcer of left heel and midfoot with fat layer exposed; L97.512 Non-pressure chronic ulcer of other part of right foot with fat layer exposed; L97.112 Non-pressure chronic ulcer of right thigh with fat layer exposed; L03.032 Cellulitis of left toe; S91.202S Unspecified open wound of left great toe with damage to nail, sequela; X58.XXXS Exposure to other specified factors, sequela; D50.9 Iron deficiency anemia, unspecified; R77.0 Abnormality of albumin; E11.65 Type 2 diabetes mellitus with hyperglycemia; E11.40 Type 2 diabetes mellitus with diabetic neuropathy, unspecified
CPT/HCPCS: A9270

== ENCOUNTER 2021-03-25 02:24 | Emergency (ER) | payer MEDICARE ==
[~2021-03-25] VITALS: Ht 175.3 cm; Wt 111.1 kg
[2021-04-09] MEDS ORDERED: TAMSULOSIN HCL0.4 M1 PO (17:09)
[2021-04-09] MEDS ORDERED: METO2.5 PO (17:11)
[2021-04-09] MEDS ORDERED: CEFP200 PO (22:36)
== END 2021-03-25 04:01 | disposition home or self-care (01) ==
LOC: ER 02:24
DX: T83.028A Displacement of other urinary catheter, initial encounter (principal); Z88.5 Allergy status to narcotic agent; Z88.8 Allergy status to other drugs, medicaments and biological substances; Z79.4 Long term (current) use of insulin; Z79.899 Other long term (current) drug therapy; J44.9 Chronic obstructive pulmonary disease, unspecified; E11.40 Type 2 diabetes mellitus with diabetic neuropathy, unspecified; Z87.891 Personal history of nicotine dependence
CPT/HCPCS: 51702; 99283-25

== ENCOUNTER 2021-03-29 04:25 | Day surgery (SDC) | payer MEDICARE ==
[2021-04-09] MEDS ORDERED: TAMSULOSIN HCL0.4 M1 PO (17:09)
[2021-04-09] MEDS ORDERED: METO2.5 PO (17:11)
[2021-04-09] MEDS ORDERED: CEFP200 PO (22:36)
== END 2021-03-29 22:44 | disposition home or self-care (01) ==
LOC: WOUND 04:25
DX: E11.621 Type 2 diabetes mellitus with foot ulcer (principal); L97.422 Non-pressure chronic ulcer of left heel and midfoot with fat layer exposed; L97.512 Non-pressure chronic ulcer of other part of right foot with fat layer exposed; L97.112 Non-pressure chronic ulcer of right thigh with fat layer exposed; L03.032 Cellulitis of left toe; D50.9 Iron deficiency anemia, unspecified; R77.0 Abnormality of albumin; E11.65 Type 2 diabetes mellitus with hyperglycemia; E11.40 Type 2 diabetes mellitus with diabetic neuropathy, unspecified; S91.202S Unspecified open wound of left great toe with damage to nail, sequela; X58.XXXS Exposure to other specified factors, sequela
CPT/HCPCS: A9270

== ENCOUNTER 2021-04-11 15:38 | Emergency (ER) | payer MEDICARE ==
[~2021-04-11] VITALS: Ht 177.8 cm; Wt 111.1 kg
[~2021-04-11 15:38] MED LIST changes: +CEFP200 PO; +TAMSULOSIN HCL0.4 M1 PO
[2021-04-11] MEDS ORDERED: CEFP200 PO (16:05)
[2021-04-11 16:06] LABS: BASOPHILS ABSOLUTE AUTO 0.04 K/mm3 (0.00-0.23); BASOPHILS PERCENT AUTO 0 % (0-2); EOSINOPHILS ABSOLUTE AUTO 0.91 K/mm3 (0.00-0.68); EOSINOPHILS PERCENT AUTO 7 % (0-6); Hematocrit 31.5 % (37.0-53.0); Hemoglobin 9.7 g/dL (13.5-17.5); IMMATURE GRAN ABSOLUTE AUTO 0.08 K/mm3 (0.00-0.10); IMMATURE GRAN PERCENT AUTO 1 % (0-1); LYMPHOCYTES ABSOLUTE AUTO 5.94 K/mm3 (0.84-5.20); LYMPHOCYTES PERCENT AUTO 45 % (21-46); MONOCYTES PERCENT AUTO 8 % (4-13); Mean Corpuscular HGB 24.2 pg (26.0-34.0); Mean Corpuscular HGB Conc 30.8 g/dL (31.5-36.5); Mean Corpuscular Volume 79 fL (80-100); Mean Platelet Volume 9.5 fL (9.1-12.4); NEUTROPHILS ABSOLUTE AUTO 5.26 K/mm3 (1.96-9.15); NEUTROPHILS PERCENT AUTO 39 % (41-73); Platelet Count 434 K/mm3 (150-400); RDW Coefficient Variation 15.8 % (11.7-14.2); RDW Standard Deviation 45.2 fL (35.1-46.3); Red Blood Cell Count 4.01 M/mm3 (4.30-5.90); White Blood Cell Count 13.33 K/mm3 (4.00-11.30)
[2021-04-11] MEDS ORDERED: POTCHL20ER PO (16:06)
[2021-04-11 16:31] LABS: Alanine Aminotransfer (ALT/SGP 14 U/L (12-78); Albumin, Blood 2.5 g/dL (3.4-5.0); Albumin/Globulin Ratio 0.4 (0.8-1.8); Alk Phos 79 U/L (50-136); Anion Gap 5 mmol/L (6-16); Aspartate Aminotrans (AST/SGOT 17 U/L (12-37); Bilirubin, Total 0.2 mg/dL (0.1-1.0); Blood Urea Nitrogen 21 mg/dL (8-24); Bun/Creatinine Ratio 20.2 (12.0-20.0); CO2, Blood 32 mmol/L (21-32); Calcium, Blood 8.4 mg/dL (8.5-10.1); Chloride, Blood 98 mmol/L (98-108); Creatinine, Blood 1.04 mg/dL (0.60-1.20); Globulin, Blood 5.7 g/dL (2.2-4.0); Glomerular Filtration Rate >60 (60-); Glucose, Blood 112 mg/dL (70-99); Potassium, Blood 3.2 mmol/L (3.5-5.5); Sodium, Blood 135 mmol/L (136-145); Total Protein, Blood 8.2 g/dL (6.4-8.2); Troponin I <0.015 ng/mL (0.000-0.040)
[2021-04-11] MEDS ORDERED: ONDA4ODT MM (17:03)
== END 2021-04-11 18:32 ==
LOC: ER 15:38
PROVIDERS: Student in an Organized Health Care Education/Training Program
DX: E86.0 Dehydration (principal); R55 Syncope and collapse; R11.2 Nausea with vomiting, unspecified; J44.9 Chronic obstructive pulmonary disease, unspecified; I50.9 Heart failure, unspecified; E11.40 Type 2 diabetes mellitus with diabetic neuropathy, unspecified; Z88.5 Allergy status to narcotic agent; Z88.8 Allergy status to other drugs, medicaments and biological substances; Z79.4 Long term (current) use of insulin; Z79.899 Other long term (current) drug therapy
CPT/HCPCS: 36415; 80053; 82947; 84484; 85025; 87077; 87086; 87186; 93005; 93010; 96374; 99284-25; A9270; J2405; J7030

== ENCOUNTER 2021-04-19 07:37 | Day surgery (SDC) | payer MEDICARE ==
[~2021-04-19 07:37] MED LIST changes: +ONDA4ODT MM
[2021-04-20] MEDS ORDERED: AMIL5 PO (12:05)
[2021-04-20] MEDS ORDERED: BASAGLAR K100 UNIT/3 SC (12:05)
[2021-04-22] MEDS ORDERED: VANCOCIN HCL125 MG PO (12:54)
[2021-04-22] MEDS ORDERED: AMOX500 PO (12:55)
[2021-04-22] MEDS ORDERED: LACT PO (12:55)
== END 2021-04-19 22:44 | disposition home or self-care (01) ==
LOC: WOUND 07:37
DX: E11.621 Type 2 diabetes mellitus with foot ulcer (principal); L97.422 Non-pressure chronic ulcer of left heel and midfoot with fat layer exposed; L97.822 Non-pressure chronic ulcer of other part of left lower leg with fat layer exposed; L97.112 Non-pressure chronic ulcer of right thigh with fat layer exposed; S91.102S Unspecified open wound of left great toe without damage to nail, sequela; X58.XXXS Exposure to other specified factors, sequela; D50.9 Iron deficiency anemia, unspecified; R77.0 Abnormality of albumin; E11.65 Type 2 diabetes mellitus with hyperglycemia; E11.40 Type 2 diabetes mellitus with diabetic neuropathy, unspecified; L03.032 Cellulitis of left toe
CPT/HCPCS: A9270

== ENCOUNTER 2021-04-20 10:06 | Inpatient (IN) | payer MEDICARE ==
[~2021-04-20] VITALS: Ht 177.8 cm; Wt 93.9 kg
[2021-04-20 10:52] LABS: BASOPHILS ABSOLUTE AUTO 0.06 K/mm3 (0.00-0.23); BASOPHILS PERCENT AUTO 0 % (0-2); EOSINOPHILS ABSOLUTE AUTO 0.02 K/mm3 (0.00-0.68); EOSINOPHILS PERCENT AUTO 0 % (0-6); Hematocrit 36.3 % (37.0-53.0); Hemoglobin 10.6 g/dL (13.5-17.5); IMMATURE GRAN ABSOLUTE AUTO 0.08 K/mm3 (0.00-0.10); IMMATURE GRAN PERCENT AUTO 1 % (0-1); LYMPHOCYTES ABSOLUTE AUTO 1.81 K/mm3 (0.84-5.20); LYMPHOCYTES PERCENT AUTO 11 % (21-46); MONOCYTES ABSOLUTE AUTO 0.87 K/mm3 (0.16-1.47); MONOCYTES PERCENT AUTO 6 % (4-13); Mean Corpuscular HGB 24.1 pg (26.0-34.0); Mean Corpuscular HGB Conc 29.2 g/dL (31.5-36.5); Mean Corpuscular Volume 83 fL (80-100); Mean Platelet Volume 9.2 fL (9.1-12.4); NEUTROPHILS ABSOLUTE AUTO 13.06 K/mm3 (1.96-9.15); NEUTROPHILS PERCENT AUTO 82 % (41-73); Platelet Count 477 K/mm3 (150-400); RDW Standard Deviation 48.7 fL (35.1-46.3)
[2021-04-20 11:10] LABS: Magnesium, Blood 3.3 mg/dL (1.6-2.4)
[2021-04-20 11:22] LABS: Albumin, Blood 2.8 g/dL (3.4-5.0); Albumin/Globulin Ratio 0.4 (0.8-1.8); Bilirubin, Total 0.3 mg/dL (0.1-1.0); Calcium, Blood 8.9 mg/dL (8.5-10.1); Creatinine, Blood 1.61 mg/dL (0.60-1.20); Globulin, Blood 6.7 g/dL (2.2-4.0); Phosphorus, Blood 3.1 mg/dL (2.5-4.9); Potassium, Blood 9.2 mmol/L (3.5-5.5); Total Protein, Blood 9.5 g/dL (6.4-8.2)
[2021-04-20 11:27] LABS: Source, Urine Catheter
[2021-04-20 11:48] LABS: Appearance, Urine Hazy (Clear); Bilirubin, Urine Neg (Neg); Blood, Urine 2+ (Neg); Color, Urine Yellow (P-Yellow); Glucose Qualitative, Urine Neg (Neg); Ketones, Urine Neg (Neg); Leukocyte Esterase, Urine 3+ (Neg); Nitrite, Urine Neg (Neg); Protein, Urine 2+ (Neg); Urobilinogen, Urine NORM (Normal); pH, Urine 6.5 (5.0-8.0)
[2021-04-20] MEDS ORDERED: BASAGLAR K100 UNIT/3 SC ×2 (12:05)
[2021-04-20] MEDS ORDERED: AMIL5 PO ×2 (12:05)
[2021-04-20 12:10] LABS: White Blood Cells, Urine 50-100 /hpf (0-5)
[2021-04-20 12:11] LABS: Bacteria Few /hpf; Squamous Epithelial Cells Rare /hpf (Few)
[2021-04-20 12:17] LABS: Campylobacter Sp Not Detected (NOT DETECT); Cryptosporidium Not Detected (NOT DETECT); Cyclospora Cayetanensis Not Detected (NOT DETECT); E. Coli O157 Not Detected (NOT DETECT); Enteroaggregative E. coli-EAEC Not Detected (NOT DETECT); Enteropathogenic E. coli-EPEC Not Detected (NOT DETECT); Enterotoxigenic E. coli-ETEC Not Detected (NOT DETECT); Plesiomonas Shigelloides Not Detected (NOT DETECT); Salmonella Sp Not Detected (NOT DETECT); Shiga Toxin-prod E. coli-STEC Not Detected (NOT DETECT); Shigella/Enteroin E. coli-EIEC Not Detected (NOT DETECT); Vibrio Cholerae Not Detected (NOT DETECT); Vibrio Sp Not Detected (NOT DETECT); Yersinia Enterocolitica Not Detected (NOT DETECT)
[2021-04-20 12:18] LABS: Adenovirus F 40/41 Not Detected (NOT DETECT); Astrovirus Not Detected (NOT DETECT); Entamoeba Histolytica Not Detected (NOT DETECT); Giardia Lamblia Not Detected (NOT DETECT); Norovirus GI/GII Not Detected (NOT DETECT); Rotavirus A Not Detected (NOT DETECT); Sapovirus Not Detected (NOT DETECT)
[2021-04-20 13:19] LABS: Bun/Creatinine Ratio 19.7 (12.0-20.0); Calcium, Blood 8.4 mg/dL (8.5-10.1); Creatinine, Blood 1.47 mg/dL (0.60-1.20); Potassium, Blood 7.4 mmol/L (3.5-5.5)
--- NOTE | 2021-04-20 19:23 | NUR ---
PT ADMITTED TO ICU 7 FROM ER AT 1515. PT IS A/O X4, DENIES PAIN. ABLE TO FOLLOW COMMANDS. PT IS STIFF WHEN ROLLING IN BED AND STATES HE SPENDS TOO MUCH TIME IN BED AT HOME. PT STATES HE ALSO HAS A W/C THAT HE CAN WHEEL HIMSELF AROUND IN. PT HAS MOMENTS WHERE HE IS TREMULOUS AND STATES IT IS NOT NEW. DR. PASTOR MADE AWARE OF POTASSIUM DOWN TO 5.9. PT HAS EXCORIATION TO BUTTOCKS. BARRIER CREAM APPLIED AND MEPILEX DRESSING FOR PROTECTION. PT ALSO HAS A WOUND TO RLE THAT HE STATES HE GOES TO THE WOUND CLINIC FOR. NO SIGN OF DISTRESS AT THE MOMENT.
[2021-04-20 21:04] LABS: Bun/Creatinine Ratio 20.3 (12.0-20.0); Calcium, Blood 8.1 mg/dL (8.5-10.1); Creatinine, Blood 1.23 mg/dL (0.60-1.20); Potassium, Blood 4.6 mmol/L (3.5-5.5)
[2021-04-21 03:40] LABS: BASOPHILS ABSOLUTE AUTO 0.03 K/mm3 (0.00-0.23); BASOPHILS PERCENT AUTO 0 % (0-2); EOSINOPHILS ABSOLUTE AUTO 0.33 K/mm3 (0.00-0.68); EOSINOPHILS PERCENT AUTO 4 % (0-6); Hematocrit 25.1 % (37.0-53.0); Hemoglobin 7.6 g/dL (13.5-17.5); IMMATURE GRAN ABSOLUTE AUTO 0.05 K/mm3 (0.00-0.10); IMMATURE GRAN PERCENT AUTO 1 % (0-1); LYMPHOCYTES ABSOLUTE AUTO 2.42 K/mm3 (0.84-5.20); LYMPHOCYTES PERCENT AUTO 28 % (21-46); MONOCYTES ABSOLUTE AUTO 0.73 K/mm3 (0.16-1.47); MONOCYTES PERCENT AUTO 9 % (4-13); Mean Corpuscular HGB 24.4 pg (26.0-34.0); Mean Corpuscular HGB Conc 30.3 g/dL (31.5-36.5); Mean Corpuscular Volume 81 fL (80-100); Mean Platelet Volume 8.7 fL (9.1-12.4); NEUTROPHILS ABSOLUTE AUTO 4.95 K/mm3 (1.96-9.15); NEUTROPHILS PERCENT AUTO 58 % (41-73); Platelet Count 333 K/mm3 (150-400); RDW Coefficient Variation 16.3 % (11.7-14.2); RDW Standard Deviation 47.8 fL (35.1-46.3); Red Blood Cell Count 3.11 M/mm3 (4.30-5.90); White Blood Cell Count 8.51 K/mm3 (4.00-11.30)
[2021-04-21 04:04] LABS: Alanine Aminotransfer (ALT/SGP 11 U/L (12-78); Alk Phos 60 U/L (50-136); Anion Gap 3 mmol/L (6-16); Aspartate Aminotrans (AST/SGOT 11 U/L (12-37); Bilirubin, Direct <0.1 mg/dL (0.0-0.3); Bilirubin, Total 0.2 mg/dL (0.1-1.0); Blood Urea Nitrogen 21 mg/dL (8-24); Bun/Creatinine Ratio 19.4 (12.0-20.0); CO2, Blood 26 mmol/L (21-32); CPK Creatine Kinase 32 U/L (39-308); Calcium, Blood 7.9 mg/dL (8.5-10.1); Chloride, Blood 109 mmol/L (98-108); Creatinine, Blood 1.08 mg/dL (0.60-1.20); Glomerular Filtration Rate >60 (60-); Glucose, Blood 96 mg/dL (70-99); Magnesium, Blood 2.4 mg/dL (1.6-2.4); Phosphorus, Blood 4.1 mg/dL (2.5-4.9); Potassium, Blood 4.1 mmol/L (3.5-5.5); Sodium, Blood 138 mmol/L (136-145)
[2021-04-21 04:11] LABS: Albumin/Globulin Ratio 0.4 (0.8-1.8); Bilirubin, Indirect Unable to Calculate mg/dL (0.1-0.7); Globulin, Blood 4.5 g/dL (2.2-4.0)
[2021-04-21 04:19] LABS: Total Protein, Blood 6.5 g/dL (6.4-8.2)
--- NOTE | 2021-04-21 06:30 | NUR ---
SHIFT SUMMARY PATIENT SLEPT WELL THRU NIGHT. NO ACUTE EVENTS OVERNIGHT. ASSESSMENT IS CHARTED. VSS. WILL CONTINUE TO MONITOR.
--- NOTE | 2021-04-21 11:46 | NUR ---
REASSESSMENT PT HAS BEEN RESTING IN BED THROUGHOUT THE MORNING, ALERT AND VERY PLEASANT. LUNGS ARE CLEAR, RA. SR, BP STABLE, EATING WELL. PT TALKS ABOUT DIFFICULTY REACHING HIS CAREGIVER DURING THE DAY WHEN HE NEEDS EXTRA HELP, BUT SAYS HE HAS COME UP WITH THE SOUTION OF GETTING A BOAT HORN OR WHISTLE. HE SAYS A PHONE WON'T WORK BECAUSE OF HIS ARTHRITIC HANDS. DISCUSSED GETTING A LIFE ALERT TYPE SYSTEM AND HE SAYS HE HAS CONSIDERED THAT. ENCOURAGED PATIENT TO LOOK INTO THAT FOR A MORE EFFECTIVE WAY OF GETTING HELP AND NATURAL RESOURCE TECHNICIAN SAID SHE WILL SEND INFORMATION UP ON THEM. NO OTHER CONCERNS FROM PT AT THIS TIME. CONTINUING TO MONITOR.
--- NOTE | 2021-04-21 14:21 | NUR ---
SPOKE WITH WOUND CLINIC ABOUT PT'S LEG WRAP. THEY VERIFIED THAT THEY PUT COMPRESSION DRESSING ON A COUPLE DAYS AGO AND SAID TO LEAVE IT ON UNLESS DRAINAGE STARTS TO SATURATE THROUGH. DRESSING AT THIS TIME IS CLEAN AND DRY, WILL LEAVE IN PLACE.
--- NOTE | 2021-04-21 16:38 | NUR ---
SHIFT SUMMARY PT HAS BEEN RESTING IN BED THROUGHOUT THE SHIFT. DOWNGRADED TO MEDICAL, NO TELE BY DR. BALLESTEROS. MULTIPLE ATTEMPTS MADE TO GET A HOLD OF HIS CAREGIVER TO BE ABLE TO SEND PT HOME, BUT HIS PHONE GOES STRAIGHT TO VOICEMAIL AND VOICEMAIL BOX IS FULL. LUNGS ARE CLEAR, RA. HRR. 1150 OF CL YELLOW URINE EMPTIED FRO DELEON. WOUNDS ON LEGS REMAIN UNCHANGED. CONTINUING TO MONITOR.
--- NOTE | 2021-04-21 17:54 | NUR ---
REPORT CALLED TO CHRIS SINGH. PT TRANSPORTED TO [facility] VIA BED WITH PCT. ALL BELONGINGS TRANSFERRED WITH PT. ATTEMPTED TO CALL PT'S CAREGIVER AGAIN, BUT NO ANSWER.
--- NOTE | 2021-04-21 18:08 | NUR ---
UNIT TRANSFER PT ARRIVED TO UNIT @ APPROX 1800 VIA BED, PT LIFTED INTO MED FLOOR BED. PT TOLERATED THIS WELL. DELEON IN PLACE, PATENT AND DRAINING. A&O, RA, DENIES ANY DISTRESS @ THIS TIME. NS RUNNING @ 100 ML/HR, NEW BAG HUNG AT TIME OF ARRIVAL. PT IS CURRENTLY LYING IN BED c CALL LIGHT WITHIN REACH.
--- NOTE | 2021-04-22 06:43 | NUR ---
NO ACCUTE CHANGES OVERNIGHT. PT REMAINS ALERT AND ORIENTED X4, BEDBOUND, AND MAKES NO COMPLAINTS AT THIS TIME. STAFF WILL CONTINUE TO MONITOR.
--- NOTE | 2021-04-22 06:45 | NUR ---
CAREGIVER CONTACT. PLEASE CALL JACE AT [phone]
[2021-04-22 10:20] LABS: Albumin, Blood 1.9 g/dL (3.4-5.0); Anion Gap 6 mmol/L (6-16); Blood Urea Nitrogen 16 mg/dL (8-24); Bun/Creatinine Ratio 18.3 (12.0-20.0); CO2, Blood 25 mmol/L (21-32); Calcium, Blood 7.4 mg/dL (8.5-10.1); Chloride, Blood 104 mmol/L (98-108); Creatinine, Blood 0.87 mg/dL (0.60-1.20); Glomerular Filtration Rate >60 (60-); Glucose, Blood 164 mg/dL (70-99); Magnesium, Blood 2.1 mg/dL (1.6-2.4); Phosphorus, Blood 2.8 mg/dL (2.5-4.9); Potassium, Blood 3.1 mmol/L (3.5-5.5); Sodium, Blood 135 mmol/L (136-145)
[2021-04-22] MEDS ORDERED: VANCOCIN HCL125 MG PO ×2 (12:54)
[2021-04-22] MEDS ORDERED: AMOX500 PO ×2 (12:55)
[2021-04-22] MEDS ORDERED: LACT PO ×2 (12:55)
--- NOTE | 2021-04-22 16:39 | NUR ---
DISCHARGE SUMMARY PT DISCHARGED @ APPROX 1620 VIA WHEELCHAIR, PT CAREGIVER PRESENT DURING DISCHARGE INSTRUCTIONS. IV SITE REMOVED AND APPEARED WNL. PT LEFT c DELEON IN PLACE. NEEDED RX FAXED TO PHARMACY. PT STATED HE HAD ALL OF HIS BELONGINGS.
== END 2021-04-22 16:16 | disposition home health service (06) | DRG 698 ==
LOC: ER 10:06 → ICUE 12:40 → ERHOLD 12:40 → ICUE 15:15 → MEDS 04-21 18:00 → ENPENDDIS 04-22 11:37 → MEDS 04-22 16:16
PROVIDERS: Internal Medicine Nephrology; Nurse Practitioner Acute Care; Physician Assistant; ADMIT Internal Medicine
DX: T83.511A Infection and inflammatory reaction due to indwelling urethral catheter, initial encounter (principal); A41.81 Sepsis due to Enterococcus; N17.9 Acute kidney failure, unspecified; I13.0 Hypertensive heart and chronic kidney disease with heart failure and stage 1 through stage 4 chronic kidney disease, or unspecified chronic kidney disease; N25.81 Secondary hyperparathyroidism of renal origin; I50.32 Chronic diastolic (congestive) heart failure; N39.0 Urinary tract infection, site not specified; J44.9 Chronic obstructive pulmonary disease, unspecified; E87.5 Hyperkalemia; E86.0 Dehydration; N40.0 Benign prostatic hyperplasia without lower urinary tract symptoms; J45.909 Unspecified asthma, uncomplicated; E11.51 Type 2 diabetes mellitus with diabetic peripheral angiopathy without gangrene; I25.10 Atherosclerotic heart disease of native coronary artery without angina pectoris; G47.33 Obstructive sleep apnea (adult) (pediatric); N18.9 Chronic kidney disease, unspecified; E11.22 Type 2 diabetes mellitus with diabetic chronic kidney disease; D63.1 Anemia in chronic kidney disease; E88.09 Other disorders of plasma-protein metabolism, not elsewhere classified; E11.42 Type 2 diabetes mellitus with diabetic polyneuropathy; Z98.890 Other specified postprocedural states; Z88.5 Allergy status to narcotic agent; Z88.8 Allergy status to other drugs, medicaments and biological substances; Z79.4 Long term (current) use of insulin; Z79.899 Other long term (current) drug therapy; Y84.6 Urinary catheterization as the cause of abnormal reaction of the patient, or of later complication, without mention of misadventure at the time of the procedure
CPT/HCPCS: 0097U; 36415; 51702; 76770; 80048; 80053; 80069; 81001; 82248; 82550; 82947; 83605; 83735; 84100; 84132; 84484; 84550; 85018; 85025; 87040; 87077; 87086; 87186; 87324; 93005; 93010; 94644; 96365-59; 96375-59; 96376-59; 99285-25; A9270; J0290; J0610; J1644; J1815; J1940; J7030

== ENCOUNTER 2021-04-26 04:58 | Day surgery (SDC) | payer MEDICARE ==
[~2021-04-26 04:58] MED LIST changes: +AMOX500 PO; +BASAGLAR K100 UNIT/3 SC; +LACT PO; +VANCOCIN HCL125 MG PO
== END 2021-04-26 22:46 | disposition home or self-care (01) ==
LOC: WOUND 04:58
DX: E11.621 Type 2 diabetes mellitus with foot ulcer (principal); L97.522 Non-pressure chronic ulcer of other part of left foot with fat layer exposed; L97.512 Non-pressure chronic ulcer of other part of right foot with fat layer exposed; L97.112 Non-pressure chronic ulcer of right thigh with fat layer exposed; L03.032 Cellulitis of left toe; S91.202S Unspecified open wound of left great toe with damage to nail, sequela; X58.XXXS Exposure to other specified factors, sequela; D50.9 Iron deficiency anemia, unspecified; R77.0 Abnormality of albumin; E11.65 Type 2 diabetes mellitus with hyperglycemia; E11.40 Type 2 diabetes mellitus with diabetic neuropathy, unspecified
CPT/HCPCS: A9270

== ENCOUNTER 2021-05-10 02:03 | Day surgery (SDC) | payer MEDICARE | END 2021-05-10 23:00 | disposition home or self-care (01) | LOC: WOUND 02:03 | DX: E11.621 Type 2 diabetes mellitus with foot ulcer (principal); L97.425 Non-pressure chronic ulcer of left heel and midfoot with muscle involvement without evidence of necrosis; L97.522 Non-pressure chronic ulcer of other part of left foot with fat layer exposed; L97.512 Non-pressure chronic ulcer of other part of right foot with fat layer exposed; L97.112 Non-pressure chronic ulcer of right thigh with fat layer exposed; L03.032 Cellulitis of left toe; D50.9 Iron deficiency anemia, unspecified; R77.0 Abnormality of albumin; E11.65 Type 2 diabetes mellitus with hyperglycemia; E11.40 Type 2 diabetes mellitus with diabetic neuropathy, unspecified; S91.202S Unspecified open wound of left great toe with damage to nail, sequela; X58.XXXS Exposure to other specified factors, sequela | CPT/HCPCS: A9270 ==

== ENCOUNTER 2021-05-19 02:11 | Day surgery (SDC) | payer MEDICARE | END 2021-05-19 23:16 | disposition home or self-care (01) | LOC: WOUND 02:11 | DX: E11.621 Type 2 diabetes mellitus with foot ulcer (principal); L97.512 Non-pressure chronic ulcer of other part of right foot with fat layer exposed; L97.522 Non-pressure chronic ulcer of other part of left foot with fat layer exposed; E11.622 Type 2 diabetes mellitus with other skin ulcer; L97.112 Non-pressure chronic ulcer of right thigh with fat layer exposed; L03.032 Cellulitis of left toe; E11.40 Type 2 diabetes mellitus with diabetic neuropathy, unspecified; D50.9 Iron deficiency anemia, unspecified; E11.65 Type 2 diabetes mellitus with hyperglycemia; S91.202S Unspecified open wound of left great toe with damage to nail, sequela | CPT/HCPCS: A9270 ==

== ENCOUNTER 2021-05-26 01:36 | Day surgery (SDC) | payer MEDICARE | END 2021-05-26 22:47 | disposition home or self-care (01) | LOC: WOUND 01:36 | DX: E11.621 Type 2 diabetes mellitus with foot ulcer (principal); L97.425 Non-pressure chronic ulcer of left heel and midfoot with muscle involvement without evidence of necrosis; L97.522 Non-pressure chronic ulcer of other part of left foot with fat layer exposed; L97.512 Non-pressure chronic ulcer of other part of right foot with fat layer exposed | CPT/HCPCS: A9270; G0463 ==

== ENCOUNTER 2021-06-13 02:53 | Day surgery (SDC) | payer MEDICARE | END 2021-06-13 22:55 | disposition home or self-care (01) | LOC: WOUND 02:53 | DX: E11.621 Type 2 diabetes mellitus with foot ulcer (principal); L97.425 Non-pressure chronic ulcer of left heel and midfoot with muscle involvement without evidence of necrosis; L97.522 Non-pressure chronic ulcer of other part of left foot with fat layer exposed; L97.512 Non-pressure chronic ulcer of other part of right foot with fat layer exposed; L97.112 Non-pressure chronic ulcer of right thigh with fat layer exposed; L03.032 Cellulitis of left toe; S91.202S Unspecified open wound of left great toe with damage to nail, sequela; X58.XXXS Exposure to other specified factors, sequela; D50.9 Iron deficiency anemia, unspecified; R77.0 Abnormality of albumin; E11.65 Type 2 diabetes mellitus with hyperglycemia; E11.40 Type 2 diabetes mellitus with diabetic neuropathy, unspecified | CPT/HCPCS: A9270 ==

== ENCOUNTER 2021-07-30 16:02 | Inpatient (IN) | payer MEDICARE ==
[~2021-07-30] VITALS: Ht 175.3 cm; Wt 109.5 kg
[2021-07-30 17:27] LABS: Source, Urine Catheter
[2021-07-30 17:33] LABS: Appearance, Urine Cloudy (Clear); Bilirubin, Urine Neg (Neg); Blood, Urine 4+ (Neg); Color, Urine Yellow (P-Yellow); Glucose Qualitative, Urine Neg (Neg); Ketones, Urine Neg (Neg); Leukocyte Esterase, Urine 3+ (Neg); Nitrite, Urine Pos (Neg); Protein, Urine 3+ (Neg); Specific Gravity, Urine 1.015 (1.003-1.022); Urobilinogen, Urine NORM (Normal)
[2021-07-30 17:43] LABS: White Blood Cells, Urine TNTC /hpf (0-5)
[2021-07-30 17:44] LABS: Bacteria Many /hpf; Red Blood Cells, Urine 25-50 /hpf (0-2); Squamous Epithelial Cells Not Seen /hpf (Few); Triple Phosphate Crystals Mod /hpf
[2021-07-30 17:52] LABS: BASOPHILS ABSOLUTE AUTO 0.03 K/mm3 (0.00-0.23); BASOPHILS PERCENT AUTO 0 % (0-2); EOSINOPHILS ABSOLUTE AUTO 0.21 K/mm3 (0.00-0.68); EOSINOPHILS PERCENT AUTO 2 % (0-6); Hematocrit 32.5 % (37.0-53.0); Hemoglobin 9.6 g/dL (13.5-17.5); IMMATURE GRAN ABSOLUTE AUTO 0.06 K/mm3 (0.00-0.10); IMMATURE GRAN PERCENT AUTO 1 % (0-1); LYMPHOCYTES ABSOLUTE AUTO 1.98 K/mm3 (0.84-5.20); LYMPHOCYTES PERCENT AUTO 17 % (21-46); MONOCYTES ABSOLUTE AUTO 0.95 K/mm3 (0.16-1.47); MONOCYTES PERCENT AUTO 8 % (4-13); Mean Corpuscular HGB 22.2 pg (26.0-34.0); Mean Corpuscular HGB Conc 29.5 g/dL (31.5-36.5); Mean Corpuscular Volume 75 fL (80-100); Mean Platelet Volume 9.3 fL (9.1-12.4); NEUTROPHILS ABSOLUTE AUTO 8.13 K/mm3 (1.96-9.15); NEUTROPHILS PERCENT AUTO 72 % (41-73); Platelet Count 382 K/mm3 (150-400); RDW Coefficient Variation 16.3 % (11.7-14.2); RDW Standard Deviation 44.2 fL (35.1-46.3); Red Blood Cell Count 4.32 M/mm3 (4.30-5.90); White Blood Cell Count 11.36 K/mm3 (4.00-11.30)
[2021-07-30 18:12] LABS: Alanine Aminotransfer (ALT/SGP 16 U/L (12-78); Albumin, Blood 2.2 g/dL (3.4-5.0); Albumin/Globulin Ratio 0.4 (0.8-1.8); Alk Phos 83 U/L (50-136); Anion Gap 5 mmol/L (6-16); Aspartate Aminotrans (AST/SGOT 15 U/L (12-37); Bilirubin, Total 0.2 mg/dL (0.1-1.0); Blood Urea Nitrogen 17 mg/dL (8-24); Bun/Creatinine Ratio 18.4 (12.0-20.0); CO2, Blood 24 mmol/L (21-32); Calcium, Blood 8.2 mg/dL (8.5-10.1); Chloride, Blood 110 mmol/L (98-108); Creatinine, Blood 0.92 mg/dL (0.60-1.20); Globulin, Blood 5.3 g/dL (2.2-4.0); Glomerular Filtration Rate >60 (60-); Glucose, Blood 132 mg/dL (70-99); Magnesium, Blood 2.1 mg/dL (1.6-2.4); Potassium, Blood 4.4 mmol/L (3.5-5.5); Sodium, Blood 139 mmol/L (136-145); Total Protein, Blood 7.5 g/dL (6.4-8.2)
--- NOTE | 2021-07-31 04:30 | NUR ---
HYPOTENSION PT HYPOTENSIVE THIS AM 77/67, HR 100, LOW GRADE TEMP OF 99.7. PT IS AWAKE AND RESPOSIVE AND STATES THAT HE FEELS OK. PT HAS BEEN SHIVERING THIS SHIFT SINCE ADMISSION AND HAS BEEN WRAPPED IN LAYERS OF BLANKETS. DR. EDL REAL CALLED AND NOTIFIED OF PT BP. SHE ORDERED 1L BOLUS OF LR AND LACTIC ACID. LACTIC ACID AND BLOOD CULTURES WERE NOT DRAWN IN ER DR. ORELLANA MADE AWARE OF THIS. PT DID RECEIVE 1/2 LITER OF NS. PT WAS ALREADY STARTED ON ANTIBIOTICS IN THE ER THUS IT IS TOO LATE TO DRAW BLOOD CULTURES AT THIS TIME. LACTIC ACID ORDERED AND FLUID BOLUS GOING AT THIS TIME. DR. ORELLANA ALSO AWARE THAT PT HAS BEEN SHIVERING CONSTANTLY, BUT HAS IMPROVED WITH WARM BLANKETS. WILL CONTINUE TO MONITOR.
[2021-07-31 05:21] LABS: BASOPHILS ABSOLUTE AUTO 0.01 K/mm3 (0.00-0.23); BASOPHILS PERCENT AUTO 0 % (0-2); EOSINOPHILS PERCENT AUTO 0 % (0-6); Hematocrit 27.7 % (37.0-53.0); Hemoglobin 8.1 g/dL (13.5-17.5); IMMATURE GRAN ABSOLUTE AUTO 0.11 K/mm3 (0.00-0.10); IMMATURE GRAN PERCENT AUTO 1 % (0-1); LYMPHOCYTES ABSOLUTE AUTO 0.18 K/mm3 (0.84-5.20); LYMPHOCYTES PERCENT AUTO 2 % (21-46); MONOCYTES ABSOLUTE AUTO 0.09 K/mm3 (0.16-1.47); MONOCYTES PERCENT AUTO 1 % (4-13); Mean Corpuscular HGB 21.8 pg (26.0-34.0); Mean Corpuscular HGB Conc 29.2 g/dL (31.5-36.5); Mean Corpuscular Volume 75 fL (80-100); Mean Platelet Volume 10.3 fL (9.1-12.4); NEUTROPHILS ABSOLUTE AUTO 11.92 K/mm3 (1.96-9.15); NEUTROPHILS PERCENT AUTO 97 % (41-73); Platelet Count 275 K/mm3 (150-400); RDW Coefficient Variation 16.5 % (11.7-14.2); RDW Standard Deviation 44.5 fL (35.1-46.3); Red Blood Cell Count 3.72 M/mm3 (4.30-5.90); White Blood Cell Count 12.31 K/mm3 (4.00-11.30)
--- NOTE | 2021-07-31 05:32 | NUR ---
SHIFT SUMMARY PT ER ADMIT THIS SHIFT FOR SEPSIS RELATED TO UTI. PT HAS BEEN STARTED ON ANTIBIOTICS, AND HAS BEEN RECEIVING MAINTENANCE FLUIDS AT 75 ML/HR PT WAS IN POOR LIVING CONDITIONS PRIOR TO COMING TO THE ED. PT LIVES IN A TRAILER AND HAS CAREGIVERS THAT COME IN WHEN THEY HAVE TIME PER PT. PT WAS FOUND BY EMS COVERED IN FECES. PT REPORTS THAT HIS CAREGIVERS REFUSED TO CLEAN HIM UP. PT WITH SOILED DRESSINGS TO BLE, COCCYX RED AND EXCORIATED. PT REPORTS THAT HE IS BED FAST AND UNABLE TO AMBULATE. PT HAD A CHRONIC INDWELLING CATHETER THAT WAS REPLACED IN ED. URINE IS DIRTY WITH HEAVY SLUGE LIKE SEDIMENT. PT HYPOTENSIVE WITH AM VITALS, PT IS ASYMPTOMATIC. DR. DEL REAL NOTIFIED AND PT RECEIVING BOLUS AT THIS TIME. LACTIC ACID RECEIVED AND IS WNL. PT HAS INSTRUMENT LENS INSPECTOR CONSULT IN PLACE. ADMISSION COMPLETE. BED IN LOWEST POSITION, CALL LIGHT WITHIN REACH.
[2021-07-31 05:46] LABS: Alanine Aminotransfer (ALT/SGP 13 U/L (12-78); Albumin, Blood 1.6 g/dL (3.4-5.0); Albumin/Globulin Ratio 0.3 (0.8-1.8); Alk Phos 70 U/L (50-136); Anion Gap 9 mmol/L (6-16); Aspartate Aminotrans (AST/SGOT 39 U/L (12-37); Bilirubin, Total 0.4 mg/dL (0.1-1.0); Blood Urea Nitrogen 22 mg/dL (8-24); CO2, Blood 19 mmol/L (21-32); Calcium, Blood 7.5 mg/dL (8.5-10.1); Chloride, Blood 112 mmol/L (98-108); Creatinine, Blood 1.05 mg/dL (0.60-1.20); Globulin, Blood 4.6 g/dL (2.2-4.0); Glomerular Filtration Rate >60 (60-); Glucose, Blood 142 mg/dL (70-99); Potassium, Blood 3.9 mmol/L (3.5-5.5); Sodium, Blood 140 mmol/L (136-145); Total Protein, Blood 6.2 g/dL (6.4-8.2)
--- NOTE | 2021-07-31 05:56 | NUR ---
BLOOD PRESSURE BLOOD PRESSURE HAS IMPROVED AND HAS RESPONDED TO FLUID BOLUS. 1L OF LR INFUSED, BP FROM 77/67 TO 103/55 WITH HR OF 95. PT RESTING IN BED AND DENIES NEEDS AT THIS TIME.
--- NOTE | 2021-07-31 19:16 | NUR ---
PT ALERT ORIENTED X 4.PT DENIES PAIN,N/V,SOB.REDNESS,OPEN ON MARISOL,COCCYX BUTTOCKS ARE MEPILEX IN PLACE.PT HAVE CHRONIC DELEON, DRAINAGE TO GRAVITY.PT HAS NO ACUTE CHANGES T/O SHIFT,PT NS AT 75ML/HR,PT IN BED,CALL LIGHT IN REACH WILL CONTINUE TO MONITOR.
--- NOTE | 2021-08-01 04:33 | NUR ---
SHIFT SUMMARY NO ACUTE CHANGES TO REPORT THIS SHIFT. PT HAS RESTED T/O THE SHIFT. PT IN CONTACT TO R/O CDIFF. PT HAS HAD A SMALL SMEAR BOWEL MOVMENT THIS SHIFT BUT NOT ENOUGH TO COLLECT A SPECIMEN. PT HAS NOT HAD A LARGE LOOSE BOWEL MOVEMENT SINCE HIS FIRST DAY AFTER ADMISSION. PT DENIES NEEDS T/O THE SHIFT. IVF AND ANTIBIOTICS INFUSED THIS SHIFT ORDERED. BP HAS BEEN STABLE. PT PLESANT AND COOPERATIVE WITH CARE. BED IN LOWEST POSITION, CALL LIGHT WITHIN REACH.
[2021-08-01 08:39] LABS: BASOPHILS ABSOLUTE AUTO 0.02 K/mm3 (0.00-0.23); BASOPHILS PERCENT AUTO 0 % (0-2); EOSINOPHILS PERCENT AUTO 4 % (0-6); Hematocrit 24.6 % (37.0-53.0); Hemoglobin 7.2 g/dL (13.5-17.5); Mean Corpuscular HGB 21.8 pg (26.0-34.0); Mean Corpuscular HGB Conc 29.3 g/dL (31.5-36.5); Mean Corpuscular Volume 75 fL (80-100); Platelet Count 225 K/mm3 (150-400); RDW Coefficient Variation 16.5 % (11.7-14.2); White Blood Cell Count 7.21 K/mm3 (4.00-11.30)
[2021-08-01 08:40] LABS: IMMATURE GRAN ABSOLUTE AUTO 0.04 K/mm3 (0.00-0.10); IMMATURE GRAN PERCENT AUTO 1 % (0-1); LYMPHOCYTES ABSOLUTE AUTO 1.35 K/mm3 (0.84-5.20); LYMPHOCYTES PERCENT AUTO 19 % (21-46); MONOCYTES ABSOLUTE AUTO 0.76 K/mm3 (0.16-1.47); MONOCYTES PERCENT AUTO 11 % (4-13); NEUTROPHILS ABSOLUTE AUTO 4.74 K/mm3 (1.96-9.15); NEUTROPHILS PERCENT AUTO 66 % (41-73)
[2021-08-01 08:58] LABS: Anion Gap 3 mmol/L (6-16); Blood Urea Nitrogen 23 mg/dL (8-24); Bun/Creatinine Ratio 26.6 (12.0-20.0); CO2, Blood 24 mmol/L (21-32); Calcium, Blood 7.6 mg/dL (8.5-10.1); Chloride, Blood 112 mmol/L (98-108); Creatinine, Blood 0.87 mg/dL (0.60-1.20); Glomerular Filtration Rate >60 (60-); Glucose, Blood 105 mg/dL (70-99); Potassium, Blood 4.1 mmol/L (3.5-5.5); Sodium, Blood 139 mmol/L (136-145)
[2021-08-01 09:05] LABS: Vancomycin, Trough 20.1 ug/mL (5.0-10.0)
--- NOTE | 2021-08-01 19:01 | NUR ---
PT AAOX4,PT IN BED,DELEON DRAINGE TO GRAVITY,PT ASSESSMENT REMAINS UNCHANGED,PT HAS NO ACUTE EVENTS T/O SHIFT,PT HAD PHYSICAL THERAPY TODAY,AND RECOMENDED TO USE ANN-MARIE LIFT FOR PT IF GETTING OUT OF BED.PT STATED WANT TO MOVE TO WANT TO MOVE TO [facility] PERMANENTLY,AND DOES NOT WANT TO GO BACK HOME.PT ON ROOM AIR SATTING IN HIGH 90S.PT DENIES PAIN,N/V,SOB.PT IN BED,BED IN LOW POSTION,CALL LIGHT IN REACH WILL CONTINUE TO MONITOR.
--- NOTE | 2021-08-02 05:22 | NUR ---
SHIFT SUMMARY PATIENT ALERT AND ORIENTED. HAD NO COMPLAINTS OF PAIN OR SHORTNESS OF BREATH. NO ACUTE ISSUES NOTED OVERNIGHT. CALL LIGHT WITHIN REACH. REPORT GIVEN TO RUBEN PEREZ.
[2021-08-02 07:02] LABS: Hematocrit 22.8 % (37.0-53.0); Hemoglobin 6.9 g/dL (13.5-17.5); Mean Corpuscular HGB 22.4 pg (26.0-34.0); Mean Corpuscular HGB Conc 30.3 g/dL (31.5-36.5); Mean Corpuscular Volume 74 fL (80-100); Platelet Count 206 K/mm3 (150-400); RDW Coefficient Variation 16.7 % (11.7-14.2); RDW Standard Deviation 44.8 fL (35.1-46.3); Red Blood Cell Count 3.08 M/mm3 (4.30-5.90); White Blood Cell Count 5.49 K/mm3 (4.00-11.30)
[2021-08-02 07:19] LABS: Anion Gap 4 mmol/L (6-16); Blood Urea Nitrogen 21 mg/dL (8-24); Bun/Creatinine Ratio 22.6 (12.0-20.0); CO2, Blood 23 mmol/L (21-32); Calcium, Blood 7.4 mg/dL (8.5-10.1); Chloride, Blood 111 mmol/L (98-108); Creatinine, Blood 0.93 mg/dL (0.60-1.20); Glomerular Filtration Rate >60 (60-); Glucose, Blood 116 mg/dL (70-99); Potassium, Blood 3.9 mmol/L (3.5-5.5); Sodium, Blood 138 mmol/L (136-145)
[2021-08-02 07:21] LABS: Vancomycin, Trough 16.2 ug/mL (5.0-10.0)
--- NOTE | 2021-08-02 19:47 | NUR ---
PT HAD ONE PK RBC TODAY,TOLERATED WELL,PT AAOX4,PT DENIES PAIN,N/V,SOB AT THIS TIMES,PT DELEON INTACT DRAINAGE TO GRAVITY,MEPILEX ON COCCYX AREA,PT ASSESSMENT REMAINS UNCHANGE,PT HAVE SOME TREMORS BLE ARM,PT IN BED,CALL LIGHT IN REACH,BED LOCK AND LOW POSITON,WILL CONTINUE TO MONITOR.
--- NOTE | 2021-08-03 04:03 | NUR ---
PT AAOX4. RESTING IN BED WITHOUR DISTRESS. DENIES SOB. VSS. RESP UNLABORED. PANCHO PATENT. MEDS GIVEN. CALL LIGHT WITHIN REACH. NO CHANGE IN STATUS DURING SHIFT. ATTENDS IN PLACE.
[2021-08-03 05:07] LABS: Hematocrit 25.7 % (37.0-53.0); Hemoglobin 7.7 g/dL (13.5-17.5); Mean Corpuscular HGB 22.4 pg (26.0-34.0); Mean Corpuscular Volume 75 fL (80-100); Platelet Count 224 K/mm3 (150-400); RDW Coefficient Variation 16.5 % (11.7-14.2); RDW Standard Deviation 44.5 fL (35.1-46.3); Red Blood Cell Count 3.44 M/mm3 (4.30-5.90)
[2021-08-03 05:49] LABS: Anion Gap 6 mmol/L (6-16); Blood Urea Nitrogen 19 mg/dL (8-24); Bun/Creatinine Ratio 24.8 (12.0-20.0); CO2, Blood 24 mmol/L (21-32); Calcium, Blood 7.5 mg/dL (8.5-10.1); Chloride, Blood 110 mmol/L (98-108); Creatinine, Blood 0.77 mg/dL (0.60-1.20); Glomerular Filtration Rate >60 (60-); Glucose, Blood 130 mg/dL (70-99); Potassium, Blood 4.2 mmol/L (3.5-5.5); Sodium, Blood 140 mmol/L (136-145)
--- NOTE | 2021-08-03 16:18 | NUR ---
SPiritual care visit conducted. Patient shaes personal information about his relationships andhis erin. I provide therapeutic listening, pastoral senior counsel and prayer. Patient responds well and shows signs of catharsis and increased peace.
--- NOTE | 2021-08-03 19:26 | NUR ---
PT AAOX4, PT HAS NO ACUTE EVENTS T/O SHIFT,PT DENIES PAIN,N/V,SOB.PT IN BED,CALL LIGHT IN REACH WILL CONTINUE TO MONITOR
--- NOTE | 2021-08-04 04:39 | NUR ---
PT RESTING IN BED AAO. DENIES PAIN. RESP UNLABORED. VSS. DELEON PATENT WITH CLEAR YELLOW URINE. TURNED AND REPOSITIONED FOR COMFORT. MEPILEX APPLIED TO COCCYX. CALL LIGHT WITHIN REACH. SAFETY AND COMFORT MEASURES MAINTAINED.
--- NOTE | 2021-08-04 18:17 | NUR ---
PT IS VERY PLEASANT,COORPERATIVE WITH STAFF,PT AAOX4,PT ASSESSMENT REMAINS UNCHANGED,PT HAS NO ACUTE EVENTS T/O THIS SHIFT,PT IN BED,CALL LIGHT IN REACH WILL CONTINUE TO MONITOR.
--- NOTE | 2021-08-05 03:41 | NUR ---
PT IS AAO. DENIES PAIN. RESP UNLABORED. VSS. DELEON PATENT DRAINING CLEAR YELLOW URINE. MEDS GIVEN PER MAR. NO EVENTS DURING NIGHT. CALL LIGHT WITHIN REACH. TURNED AND REPOSITIONED FOR COMFORT.
[2021-08-05 05:13] LABS: Hemoglobin 7.7 g/dL (13.5-17.5)
--- NOTE | 2021-08-05 19:02 | NUR ---
PT WORK WITH PHYSICAL THERAPY TODAY,PHYSICAL THERAPY PUT PT IN THE CHAIR.PT HAS NO ACUTE EVENTS T/O SHIFT.PT IN CHAIR CALL [facility] IN REACH WILL CONTIUE TO MONITOR.
--- NOTE | 2021-08-06 03:51 | NUR ---
SHIFT SUMMARY PATIENT HAD NO ACUTE CHANGES OBSERVED. AXOX 3 WITH BASELINE HAND TREMORS. BEDREST. CBG 147. PIV REMAINS INTACT. CHRONIC DELEON PATENT AND DRAINING TO GRAVITY. VSS/AFEBRILE. DENIES PAIN AND N/V. RT IN X ONE FOR BREATHING TX. CALL LIGHT IN REACH. BED IN LOWEST POSITION. WILL CONTINUE TO MONITOR UNTIL DAY SHIFT NURSE ASSUMES CARE.
--- NOTE | 2021-08-06 17:46 | NUR ---
NO REPORTS OF PAIN/DISCOMFORT. VSS, AFEBRILE. BED IN LOWEST POSITION AND CALL FRANCO IN REACH. NO ACUTE CHANGES NOTED THIS SHIFT, WILL CONTINUE TO MONITOR AND REPORT TO ONCOMING RN.
--- NOTE | 2021-08-07 03:59 | NUR ---
SHIFT SUMMARY PATIENT HAD NO ACUTE CHANGES. AXOX 3 WITH HAND TREMORS. ASSIST WITH MEDICATION. CBG 146. PIV REMAINS INTACT. DELEON PATENT AND DRAINING TO GRAVITY. RT IN FOR BREATHING TX X ONE. VSS/AFEBRILE. DENIES PAIN, SOB, AND N/V. CALL LIGHT IN REACH. BED IN LOWEST POSITION. WILL CONTINUE TO MONITOR UNTIL DAY SHIFT NURSE ASSUMES CARE.
--- NOTE | 2021-08-08 04:37 | NUR ---
SHIFT SUMMARY PATIENT HAD NO ACUTE CHANGES OBSERVED. AXOX 3 AND BEDREST. HAND TREMORS NEEDING MEDICATION ASSISTANCE. DENIES PAIN, SOB, AND N/V. RT IN FOR BREATHING TX. VSS/AFEBRILE/ DELEON PATENT AND DRAINING TO GRAVITY. CALL LIGHT IN REACH. BED IN LOWEST POSITION. WILL CONTINUE TO MONITOR UNTIL DAY SHIFT NURSE ASSUMES CARE.
--- NOTE | 2021-08-08 18:50 | NUR ---
SHIFT SUMMARY PATIENT ALERT AND ORIENTED, PLEASANT AND COOPERATIVE WITH CARE. PATIENT STATED THEY NEEDED TO GET SOMEONE OFF OF THEIR CHECKING ACCOUNT INFORMATION. PATIENT SEEMS ANXIOUS ABOUT LIVING SITUATION AT HOME AND HIS CARE BEING PROVIDED. THE PATIENT WOULD LIKE THEIR TESTOSTERONE SHOT. THIS NURSE WILL PASS ON TO THE ONCOMING NURSE ABOUT THE PLAN FOR THE PATIENT'S SHOT. NO ACUTE CHANGES THIS SHIFT. VITAL SIGNS STABLE.
--- NOTE | 2021-08-09 04:21 | NUR ---
SHIFT SUMMARY A/OX4, 2P ASSIST WITH GB FOR TRANSFERS. EXCORIATED MARISOL AREA/BOTTOM, MEPILEX AND BARRIER CREAM APPLIED. CHRONIC DELEON PATENT AND DRAINING TO GRAVITY. VSS, NO ACUTE CHANGES AT THIS TIME. BED IN LOWEST POSITION WITH CALL LIGHT IN REACH. WILL CONTINUE TO MONITOR AND REPORT TO ONCOMING RN.
[2021-08-09 06:53] LABS: Hemoglobin 7.2 g/dL (13.5-17.5)
[2021-08-09 07:29] LABS: Percent Saturation 13.4 % (20.0-50.0)
[2021-08-09] MEDS ORDERED: DEPO-TESTO200 MG/1 M IM (09:35)
--- NOTE | 2021-08-09 13:37 | NUR ---
Patient immediately tells me about his medical issues and how he is progressing, he talks about possible SNF placement and his hopes to sell his home and move into an assisted living facility after some rehabilitation. Patient then talks at length about his family unit complications that revolve around the tensions with his ex-. He states that he has some contact with his daughter but states that he doesn't trust anyone right now. He talks about how horrible things got with the homeless people that he took in and how they eventually stopped helping take care of him and so he declined rapidly. Patient talks about his erin and how he leans on God. I provide therapeutic listening, recitation of scripture, student counsellor of reconciliation with his daughter and prayer. Patient responds well and show signs of being encouraged in his erin. I will continue to remain available to patient and family.
--- NOTE | 2021-08-09 15:26 | NUR ---
PATIENT HAS BEEN PLEASANT AND COOPERATIVE WITH STAFF; ALERT AND ORIENTED. VITALS STABLE. CALLS FOR STAFF ASSIST APPROPRIATELY NEEDED. NO ACUTE CHANGES TO REPORT OF AT THIS TIME. PATIENT SITTING UPRIGHT IN BSC AT THIS TIME. CALL LIGHT WITHIN REACH.
--- NOTE | 2021-08-10 15:28 | NUR ---
PATIENT CONTINUES TO BE PLEASANT AND COOPERATIVE WITH STAFF AND CARE. VITALS HAVE BEEN STABLE TODAY. PATIENT HAS BEEN WITHOUT ANY ACUTE CHANGES TO REPORT AT THIS TIME. PATIENT RESTING IN ROOM AT THIS TIME. CALL LIGHT WITHIN REACH.
--- NOTE | 2021-08-11 06:34 | NUR ---
SHIFT SUMMARY PT PLEASANT AND COOPERATIVE. REMAINED IN BED THROUGHOUT THE NIGHT. DELEON CATHETER PATENT AND DRAINING YELLOW URINE. NO ACUTE CHANGES THIS EVENING. PT CONTINUES TO AWAIT PLACEMENT. VITAL SIGNS STABLE. WILL CONTINUE TO MONITOR.
--- NOTE | 2021-08-11 17:33 | NUR ---
NO ACUTE CHANGES PT AO AND COOPERATIVE OF CARE. PT NEEDS HELP TO REPOSITION AND CALLS INTERMITTENTLY WITH PERSONAL NEEDS. INCONTENT OF BMS DELEON IN PLACE NO DISTRESS NOTED AT THIS TIME. WILL CONTINUE TO MONITOR.
--- NOTE | 2021-08-12 05:43 | NUR ---
PT HAS BEEN IN BED ALL NIGHT, SLEPT SOME AND RECEIVED BREATHING TREATMENTS 1X. Q2 TURNS AND CATH CARE COMPLETE. NO OTHER COMPLAINTS OR CHANGES FOUND. STAFF WILL CONT TO MONITOR.
--- NOTE | 2021-08-12 17:03 | NUR ---
NO ACUTE CHANGES. AO AND COOPERATIVE OF CARE NO DISTRESS NOTED. PT IS A TWO PERSON HEAVY TRANSFER TO BEDSIDE COMMODE. PT CALLS APPROPRIATELY CALL LIGHT WITHIN REACH WILL CONTINUE TO MONITOR.
--- NOTE | 2021-08-13 06:40 | NUR ---
SHIFT SUMMARY PT IS A 76 Y/O MALE, ADMITTED FOR SEPSIS R/T UTI. HE IS A&O X 2, BEDREST, WHEELCHAIR BOUND AT BASELINE. PT HAS A CHRONIC DELEON IN PLACE, PATENT AND DRAINING. NO C/O PAIN OR NAUSEA. PT DID REPORT SOB AND REQUESTED FREQUENT BREATHING TX. VITAL SIGNS STABLE. NO OTHER ACUTE CHANGES IN PT CONDITION NOTED DURING THE NIGHT. WILL CONTINUE TO MONITOR AND TREAT PER EMAR UNTIL HAND OFF TO DAY SHIFT RN.
--- NOTE | 2021-08-13 12:51 | NUR ---
PT COMPLAINING THAT HE "CAN'T BREATHE" AND REQUESTS FREQUENT BREATHING TREATMENTS. RT, EDDIE ROACH CALLED AND IN ROOM AT 1115 STATING THAT UNLESS THE PATIENT IS IN RESPIRATORY DISTRESS, BREATHING TREATMENTS ARE NOT INDICATED. PT IRRITABLE AND RESTLESS, REFUSING TO EAT LUNCH SAYING THAT HE "CANT BREATHE." PT 92-94% ON RA. THIS NURSE GAVE PATIENT A FAN. PT STILL UNCOMFORTABLE SO NC PLACED ON 1L. PT 98% AT THIS TIME. DR DEL REAL NOTIFIED OF SOB WHEN SHE ROUNDED, AWAITING NEW ORDERS AT THIS TIME. PT NOW STATING THAT HES FEELING "A LITTLE BIT" BETTER. 98% ON 1L AT THIS TIME SO THIS NURSE TURNED 02 TO 0.5L
--- NOTE | 2021-08-13 16:56 | NUR ---
SHIFT SUMMARY PT AXO X2-3, COOPERATIVE WITH CARE THOUGH ANXIOUS. SEE NOTE ABOUT PT'S RESPIRATORY CONCERS. PT HAS BEEN RESTING SINCE. ENCOURAGED OOB THIS SHIFT, PT REFUSES. VSS. CHEST X-RAY COMPLETED THIS SHIFT, SEE IMAGING. 97% ON 0.5L O2, ONLY ON PER PATIENT REQUEST. FAN STILL AT BEDSIDE. DELEON PATENT AND DRAINING. BED IN LOW POSITION, CALL LIGHT WITHIN REACH.
--- NOTE | 2021-08-14 07:16 | NUR ---
SHIFT SUMMARY PT IS A 76 Y/O MALE, ADMITTED FOR UTI SEPSIS. HE IS A&O X 2, BEDREST, WHEELCHAIR BOUND AT BASELINE. PT REPORTS FREQUENT EPISODES OF SOB, THOUGH O2 SATS REMAIN 100% ON 2L VIA NC. VITAL SIGNS OTHERWISE STABLE. NO C/O PAIN OR NAUSEA. NO OTHER ACUTE CHANGES IN PT CONDITION NOTED DURING THE NIGHT. REPORT GIVEN TO ONCOMING RN.
--- NOTE | 2021-08-14 17:03 | NUR ---
SHIFT SUMMARY PATIENT DENIES PAIN AND NAUSEA. PATIENT REPORTS SHORTNESS OF BREATH X3. PATIENT FREQUENTLY ASKS TO HAVE OXYGEN INCREASED. PATIENT IS ON 2L SATURATING AT 98-100%. PATIENT MEDICATED WITH TYLENOL X1. PATIENT ALSO RECIEVED BREATHING TREATMENT X2. DELEON IS PATENT AND DRAINING. PATIENT UP TO CHAIR THIS AFTERNOON WITH 2 PERSON MAX ASSIST. PATIENT IS EATING AND DRINKING WELL. PATIENT IS PLEASANT AND COOPERATIVE WITH CARE.
--- NOTE | 2021-08-15 05:19 | NUR ---
SUMMARY: PT A/OX3, OCC CONFUSED TO SITUATION/EVENT BUT CALLS APPROPRIATELY TO SPECIFY NEEDS. HE FREQUENTLY REQ'S O2 TURNED UP AND FOR BREATHING TX'S DESPITE NO S/S RESPIRATORY DISTRESS AND SPO2 >98% ON 2L O2. ATTEMPTED TO TITRATE BUT PT DOESN'T LIKE STAFF TO DO SO. PT IS 2MAX ASSIST/LIFT OOB TO CHAIR AND W/C AT BASELINE. TURN SCHEDULE MAINTAINED AND MEPILEX INTACT TO REDDENED COCCYX FOR SBD PREVENTION. CHRONIC DELEON PATENT/DRAINING TO GRAVITY. HE WAS MEDICATED W/TYLENOL PRN FOR SORE THROAT PER PT REQUEST. NO ACUTE CHANGES, VSS/AFEBRILE. PLACEMENT NEEDED UPON D/C. WCWALT AND REPORT TO DAY RN.
--- NOTE | 2021-08-15 15:18 | NUR ---
Patient is sitting on a chair and alert. Patient tells me about his need for a boot for walking and for closing out his account because someone that he no longer trusts is on the account. He talks about his slow improvements and his desire to have a place to live where he is safe. He also speaks at length about what he has been learning from the Bible and the kennedi that this brings him. He is also open about his regrets and the people that he has hurt along the way. I listen empathically, hear confession, explore faith beliefs and provide pastoral teacher counselor and prayer. Patient responds well and shows signs of an increased peace. I will continue to assist patient with his spiritual struggles.
--- NOTE | 2021-08-15 17:09 | NUR ---
SUMMARY PT SITTING UP IN THE CHAIR AT THE BEDSIDE, PT HAS BEEN PLEASANT AND COOPERATIVE WITH CARE T/O THE DAY, UP TO THE CHAIR WITH 2P ASSIST, PT REMAINS ON 2L NC, PER REQUEST, HAS HAD MINOR DYSPNEA TODAY, TRINA WELL, PT WORKED WITH PT/OT, TRINA WELL, DELEON REMAINS IN PLACE DRAINING WELL, VSS, NO COMPLAINTS, WILL CONTINUE TO MONITOR
[2021-08-16 04:46] LABS: Hematocrit 24.3 % (37.0-53.0); Hemoglobin 7.1 g/dL (13.5-17.5); Mean Corpuscular HGB 22.4 pg (26.0-34.0); Mean Corpuscular HGB Conc 29.2 g/dL (31.5-36.5); Mean Corpuscular Volume 77 fL (80-100); Mean Platelet Volume 9.7 fL (9.1-12.4); Platelet Count 352 K/mm3 (150-400); RDW Coefficient Variation 18.6 % (11.7-14.2); RDW Standard Deviation 50.4 fL (35.1-46.3); Red Blood Cell Count 3.17 M/mm3 (4.30-5.90); White Blood Cell Count 6.02 K/mm3 (4.00-11.30)
[2021-08-16 04:58] LABS: Albumin, Blood 1.6 g/dL (3.4-5.0); Anion Gap 4 mmol/L (6-16); Blood Urea Nitrogen 19 mg/dL (8-24); Bun/Creatinine Ratio 24.8 (12.0-20.0); CO2, Blood 27 mmol/L (21-32); Chloride, Blood 108 mmol/L (98-108); Creatinine, Blood 0.77 mg/dL (0.60-1.20); Glomerular Filtration Rate >60 (60-); Glucose, Blood 115 mg/dL (70-99); Phosphorus, Blood 3.5 mg/dL (2.5-4.9); Potassium, Blood 4.5 mmol/L (3.5-5.5); Sodium, Blood 139 mmol/L (136-145)
--- NOTE | 2021-08-16 05:46 | NUR ---
SHIFT SUMMARY: PT IS ALERT AND ORIENTED. PT IS CALM AND COOPERATIVE WITH CARE. PT CALLS APPROPRIATELY. PT IS A MAX ASSIST, NOT OUT OF BED OVERNIGHT. PT REPORTS SOB, BREATHING TREATMENTS PRN, O2 @ 2 L. PT DENIES PAIN, NAUSEA, AND VOMITING. PT SLEPT INTERMITTENTLY THROUGHOUT THE NIGHT. NO ACUTE CHANGES OR COMPLICATION. WILL REPORT TO DAY NURSE.
--- NOTE | 2021-08-16 18:22 | NUR ---
PATIENT IS ALERT AND ORIENTED AND COOPERATIVE WITH CARE. DELEON IS IN PLACE AND PATENT. ON 3L O2 VIA NC. CALLS FOR BREATHING TREATEMENTS. WILL CONTINUE TO MONITOR
[2021-08-17 05:25] LABS: Albumin, Blood 1.6 g/dL (3.4-5.0); Anion Gap 5 mmol/L (6-16); Blood Urea Nitrogen 16 mg/dL (8-24); Bun/Creatinine Ratio 24.5 (12.0-20.0); CO2, Blood 28 mmol/L (21-32); Calcium, Blood 8.1 mg/dL (8.5-10.1); Chloride, Blood 108 mmol/L (98-108); Creatinine, Blood 0.65 mg/dL (0.60-1.20); Glomerular Filtration Rate >60 (60-); Glucose, Blood 113 mg/dL (70-99); Phosphorus, Blood 3.5 mg/dL (2.5-4.9); Potassium, Blood 4.1 mmol/L (3.5-5.5); Sodium, Blood 141 mmol/L (136-145)
--- NOTE | 2021-08-17 06:02 | NUR ---
SHIFT SUMMARY PATIENT ALERT AND ORIENTED. HAD NO COMPLAINTS OF PAIN. BREATHING TREATMENTS NEEDED. NO ACUTE ISSUES NOTED OVERNIGHT. CALL LIGHT WITHIN REACH. REPORT GIVEN TO ONCOMING RN.
--- NOTE | 2021-08-17 14:21 | NUR ---
Planned to provide heart failure diet education but pt reported that he doesn't think he has anything wrong with his heart. Provided "low sodium" diet education instead which pt was receptive to. Pt reported that he already tries to limit his sodium by choosing foods that have less than 8% DV of sodium per serving. Encouraged pt that this is a good practice, and reviewed foods that are commonly high in sodium. Pt reported that he has had some issues with his caregivers not preparing meals for him, so dietary compliance is likely dependent on availability of adequate assistance.
--- NOTE | 2021-08-17 17:48 | NUR ---
PATIENT IS ALERT AND ORIENTED AND COOPERATIVE WITH CARE. PATIENT STATES HE IS BREATHING EASIER TODAY. CHRONIC DELEON IS IN PLACE. PATIENT HAD A BEDBATH THIS AFTERNOON AND TRANSFERRED TO THE CHAIR BEFORE DINNER. HE IS A 2PA. NO NEW CONCERNS THIS SHIFT. WILL CONTINUE TO MONITOR
--- NOTE | 2021-08-18 05:16 | NUR ---
FRAME TRIMMER SUMMARY ADMITTED FOR SEPSIS/UTI. PT IS FULL CODE. PLAN FOR PLACEMENT. PT WITH CHRONIC DELEON IN PLACE. PT ALERT AND ORIENTED TO SELF AND PLACE. PT RESTING ON 1L BY NC AND REPORTS SOME ANXIETY AND CONTINUES REQUESTING A BREATHING TX. LUNG SOUNDS DIMINISHED IN BASES. PT VERY WEAK - TWO PERSON ASSIST TO STAND. NO OTHER CONCERNS THIS SHIFT.
[2021-08-18 06:48] LABS: Albumin, Blood 1.7 g/dL (3.4-5.0); Anion Gap 7 mmol/L (6-16); Blood Urea Nitrogen 17 mg/dL (8-24); Bun/Creatinine Ratio 23.6 (12.0-20.0); CO2, Blood 27 mmol/L (21-32); Calcium, Blood 8.1 mg/dL (8.5-10.1); Chloride, Blood 106 mmol/L (98-108); Creatinine, Blood 0.72 mg/dL (0.60-1.20); Glomerular Filtration Rate >60 (60-); Glucose, Blood 113 mg/dL (70-99); Phosphorus, Blood 3.6 mg/dL (2.5-4.9); Potassium, Blood 4.3 mmol/L (3.5-5.5); Sodium, Blood 140 mmol/L (136-145)
--- NOTE | 2021-08-18 18:08 | NUR ---
SHIFT SUMMARY- PT ALERT AND ORIENTED X3. PT HAS HAD NO ACUTE CHANGE T/O THE DAY. PT DENIED ANY PAIN WHEN ASKED HOWEVER THIS EVENNING WHEN STAFF CAME TO BRING HIM DINNER PT C/O FEELING SOB. BREATHING SHALLOW AND RAPID, MEDIA SPECIALIST ASSISTED RN TO BOOST THE PT UP IN BED AND SIT HIM UP HIGHER. CALLED RT JON FOR A BREATHING Tx. PT INFORMED RT WAS CALLED AND BREATHING Tx IS COMING. PT SITTING UP IN BED, CALL LIGHT IN REACH, TRAY TABLE SET UP FOR HIM TO EAT HIS DINNER, PT IS EATING DINNER AT THIS TIME WITH BREAKS TO CATCH HIS BREATH. SOB SEEMS TO HAVE IMPROVED WITH THE POSITION CHANGE.
[2021-08-19 05:16] LABS: Albumin, Blood 1.7 g/dL (3.4-5.0); Anion Gap 1 mmol/L (6-16); Blood Urea Nitrogen 16 mg/dL (8-24); Bun/Creatinine Ratio 24.3 (12.0-20.0); CO2, Blood 32 mmol/L (21-32); Chloride, Blood 107 mmol/L (98-108); Creatinine, Blood 0.66 mg/dL (0.60-1.20); Glomerular Filtration Rate >60 (60-); Glucose, Blood 157 mg/dL (70-99); Potassium, Blood 4.1 mmol/L (3.5-5.5); Sodium, Blood 140 mmol/L (136-145)
--- NOTE | 2021-08-19 05:20 | NUR ---
PT RESTED WELL OVERNIGHT. NO COMPLAINTS WERE VOICED. DENIES PAIN. REMAINS ON 3L O2 VIA NC. DELEON CATHETER PATENT. BED REMAINS IN LOW POSITION WITH CALL LIGHT WITHIN EASY REACH.
--- NOTE | 2021-08-19 18:23 | NUR ---
SHIFT SUMMARY NO ACUTE CHANGES THIS SHIFT. PT IS STILL AWAITING PLACEMENT. PT AND OT ARE ENCOURAGING THE PT TO SIT UP IN THE CHAIR AND RELY MORE ON DEEP BREATHING AND COUGHING THAT CALLING FOR BREATHING TREATMENTS. WILL CONTINUE TO MONITOR. AND PASS ON INFORMATION TO ELECTROTYPE MOLDER.
[2021-08-20 04:48] LABS: BASOPHILS ABSOLUTE AUTO 0.01 K/mm3 (0.00-0.23); BASOPHILS PERCENT AUTO 0 % (0-2); EOSINOPHILS ABSOLUTE AUTO 0.44 K/mm3 (0.00-0.68); EOSINOPHILS PERCENT AUTO 8 % (0-6); Hematocrit 23.7 % (37.0-53.0); Hemoglobin 6.8 g/dL (13.5-17.5); IMMATURE GRAN ABSOLUTE AUTO 0.01 K/mm3 (0.00-0.10); IMMATURE GRAN PERCENT AUTO 0 % (0-1); LYMPHOCYTES ABSOLUTE AUTO 1.83 K/mm3 (0.84-5.20); LYMPHOCYTES PERCENT AUTO 33 % (21-46); MONOCYTES ABSOLUTE AUTO 0.78 K/mm3 (0.16-1.47); MONOCYTES PERCENT AUTO 14 % (4-13); Mean Corpuscular HGB 22.3 pg (26.0-34.0); Mean Corpuscular HGB Conc 28.7 g/dL (31.5-36.5); Mean Corpuscular Volume 78 fL (80-100); Mean Platelet Volume 9.6 fL (9.1-12.4); NEUTROPHILS ABSOLUTE AUTO 2.55 K/mm3 (1.96-9.15); NEUTROPHILS PERCENT AUTO 45 % (41-73); Platelet Count 334 K/mm3 (150-400); RDW Coefficient Variation 18.4 % (11.7-14.2); RDW Standard Deviation 50.1 fL (35.1-46.3); Red Blood Cell Count 3.05 M/mm3 (4.30-5.90); White Blood Cell Count 5.62 K/mm3 (4.00-11.30)
[2021-08-20 05:04] LABS: Albumin, Blood 1.7 g/dL (3.4-5.0); Anion Gap 4 mmol/L (6-16); Blood Urea Nitrogen 17 mg/dL (8-24); Bun/Creatinine Ratio 21.4 (12.0-20.0); CO2, Blood 30 mmol/L (21-32); Chloride, Blood 106 mmol/L (98-108); Creatinine, Blood 0.79 mg/dL (0.60-1.20); Glomerular Filtration Rate >60 (60-); Glucose, Blood 129 mg/dL (70-99); Phosphorus, Blood 3.1 mg/dL (2.5-4.9); Sodium, Blood 140 mmol/L (136-145)
--- NOTE | 2021-08-20 05:05 | NUR ---
PT RESTED OVERNIGHT. NO C/O SOB OR PAIN. REMAINS ON 3L O2 VIA NC. DELEON CATHETER IN PLACE, PATENT, DRAINING CLEAR SAMUEL URINE. SACRUM NOTED WITH BLANCHABLE REDNESS. PT HAD BM DURING THIS SHIFT. BED IN LOWEST POSITION WITH SAFETY MEASURES IN PLACE. WILL CONTINUE TO MONITOR.
[2021-08-20 14:57] LABS: Hematocrit 28.4 % (37.0-53.0); Hemoglobin 8.3 g/dL (13.5-17.5); Mean Corpuscular HGB Conc 29.2 g/dL (31.5-36.5); Mean Corpuscular Volume 79 fL (80-100); Mean Platelet Volume 9.5 fL (9.1-12.4); Platelet Count 360 K/mm3 (150-400); RDW Standard Deviation 53.6 fL (35.1-46.3); Red Blood Cell Count 3.61 M/mm3 (4.30-5.90); White Blood Cell Count 5.35 K/mm3 (4.00-11.30)
--- NOTE | 2021-08-20 16:32 | NUR ---
SHIFT SUMMARY PT RECIEVED ONE UNIT OF PRBC THIS SHIFT. TOLERATED WELL. OT DOSE OF IV LASIX GIVEN AFTERWARDS. DELEON INTACT & DRAINING WELL. O2 AT 3L VIA NC. VS REVIEWED. PT REPOSITIONED IN BED TODAY RATHER THAN GETTING INTO CHAIR, DUE TO THE TRANSFUSION. NO OTHER ACUTE CHANGES IN ASSESSMENT AT THIS TIME. PT UP IN BED WATCHING TV AFTER BREATHING TREATMENT COMPLETED.
[2021-08-21 05:02] LABS: BASOPHILS ABSOLUTE AUTO 0.02 K/mm3 (0.00-0.23); BASOPHILS PERCENT AUTO 0 % (0-2); EOSINOPHILS ABSOLUTE AUTO 0.35 K/mm3 (0.00-0.68); EOSINOPHILS PERCENT AUTO 7 % (0-6); Hematocrit 26.9 % (37.0-53.0); Hemoglobin 7.8 g/dL (13.5-17.5); IMMATURE GRAN ABSOLUTE AUTO 0.02 K/mm3 (0.00-0.10); IMMATURE GRAN PERCENT AUTO 0 % (0-1); LYMPHOCYTES ABSOLUTE AUTO 1.51 K/mm3 (0.84-5.20); LYMPHOCYTES PERCENT AUTO 28 % (21-46); MONOCYTES ABSOLUTE AUTO 0.65 K/mm3 (0.16-1.47); MONOCYTES PERCENT AUTO 12 % (4-13); Mean Corpuscular HGB 22.8 pg (26.0-34.0); Mean Corpuscular Volume 79 fL (80-100); NEUTROPHILS ABSOLUTE AUTO 2.81 K/mm3 (1.96-9.15); NEUTROPHILS PERCENT AUTO 52 % (41-73); Platelet Count 325 K/mm3 (150-400); RDW Standard Deviation 53.6 fL (35.1-46.3); Red Blood Cell Count 3.42 M/mm3 (4.30-5.90); White Blood Cell Count 5.36 K/mm3 (4.00-11.30)
[2021-08-21 05:26] LABS: Albumin, Blood 1.8 g/dL (3.4-5.0); Anion Gap 5 mmol/L (6-16); Blood Urea Nitrogen 17 mg/dL (8-24); Bun/Creatinine Ratio 27.6 (12.0-20.0); CO2, Blood 29 mmol/L (21-32); Chloride, Blood 107 mmol/L (98-108); Creatinine, Blood 0.62 mg/dL (0.60-1.20); Glomerular Filtration Rate >60 (60-); Glucose, Blood 132 mg/dL (70-99); Phosphorus, Blood 3.2 mg/dL (2.5-4.9); Potassium, Blood 3.8 mmol/L (3.5-5.5); Sodium, Blood 141 mmol/L (136-145)
--- NOTE | 2021-08-21 06:34 | NUR ---
PT LYING IN BED WATCHING TV. NO COMPLAINTS VOICED AT THIS TIME. PT DID RECEIVE 1 UNIT PRBC DURING PREVIOUS SHIFT PER REPORT. REMAINS ON 3L O2 VIA NC, NO DYSPNEA OR SOB EXHIBITED. DELEON IS PATENT AND DRAINING URINE VIA GRAVITY. RFA 20G IV IS SALINE LOCKED. DENIES PAIN. SAFETY PRECAUTIONS MAINTAINED. BED IS IN LOW POSITION WITH THE CALL LIGHT WITHIN EASY REACH.
--- NOTE | 2021-08-21 18:20 | NUR ---
SHIFT SUMMARY PT HAD ECHO COMPLETED TODAY. SAT UP ON SIDE OF BED FOR THE AFTERNOON AND THROUGH DINNER. PT CURRENTLY RESTING IN BED WITH CALL LIGHT IN REACH, WATCHING TV. NO OTHER ACURE CHANGES IN ASSESSMENT AT THIS TIME. VS REVIEWED.
[2021-08-22 04:57] LABS: BASOPHILS ABSOLUTE AUTO 0.02 K/mm3 (0.00-0.23); BASOPHILS PERCENT AUTO 0 % (0-2); EOSINOPHILS ABSOLUTE AUTO 0.38 K/mm3 (0.00-0.68); EOSINOPHILS PERCENT AUTO 6 % (0-6); Hematocrit 27.6 % (37.0-53.0); Hemoglobin 8.1 g/dL (13.5-17.5); IMMATURE GRAN ABSOLUTE AUTO 0.02 K/mm3 (0.00-0.10); IMMATURE GRAN PERCENT AUTO 0 % (0-1); LYMPHOCYTES ABSOLUTE AUTO 1.48 K/mm3 (0.84-5.20); LYMPHOCYTES PERCENT AUTO 22 % (21-46); MONOCYTES ABSOLUTE AUTO 0.77 K/mm3 (0.16-1.47); MONOCYTES PERCENT AUTO 12 % (4-13); Mean Corpuscular HGB 23.3 pg (26.0-34.0); Mean Corpuscular HGB Conc 29.3 g/dL (31.5-36.5); Mean Corpuscular Volume 80 fL (80-100); Mean Platelet Volume 10.1 fL (9.1-12.4); NEUTROPHILS ABSOLUTE AUTO 3.96 K/mm3 (1.96-9.15); NEUTROPHILS PERCENT AUTO 60 % (41-73); Platelet Count 386 K/mm3 (150-400); RDW Coefficient Variation 18.9 % (11.7-14.2); RDW Standard Deviation 54.2 fL (35.1-46.3); Red Blood Cell Count 3.47 M/mm3 (4.30-5.90); White Blood Cell Count 6.63 K/mm3 (4.00-11.30)
[2021-08-22 05:56] LABS: Alanine Aminotransfer (ALT/SGP 23 U/L (12-78); Albumin/Globulin Ratio 0.4 (0.8-1.8); Alk Phos 79 U/L (50-136); Anion Gap 6 mmol/L (6-16); Aspartate Aminotrans (AST/SGOT 16 U/L (12-37); Bilirubin, Total 0.3 mg/dL (0.1-1.0); Blood Urea Nitrogen 16 mg/dL (8-24); CO2, Blood 30 mmol/L (21-32); Calcium, Blood 8.1 mg/dL (8.5-10.1); Chloride, Blood 106 mmol/L (98-108); Creatinine, Blood 0.57 mg/dL (0.60-1.20); Globulin, Blood 5.2 g/dL (2.2-4.0); Glomerular Filtration Rate >60 (60-); Glucose, Blood 159 mg/dL (70-99); Phosphorus, Blood 3.1 mg/dL (2.5-4.9); Sodium, Blood 142 mmol/L (136-145); Total Protein, Blood 7.2 g/dL (6.4-8.2)
--- NOTE | 2021-08-22 06:17 | NUR ---
PT RESTING IN BED/AWAKE MOST OF THE SHIFT. PT CONTINUES TO REQUEST BREATHING TREATMENTS. VS AND SATS WNL. NO LABORED BREATHING. NO CHANGES OVER NIGHT TO REPORT. STAFF WILL CONTINUE TO MONITOR.
--- NOTE | 2021-08-22 09:49 | NUR ---
WOUND NOTE PT'S FINGERNAILS HAVE OGNE UNCLIPPED BECAUSE HE IS A DIABETIC. HE FILES THEM HIMSELF BUT CANNOT GET THEM MIGUEL ENOUGH. THIS MORNING HIS BOTTOM WAS BOTHERING HIM AND HE CRATCHED SEVERAL DEEP GASHES WITH HIS FINGERNAILS. I CLEANED OUT WITH WOUND SPRAY AND GAUZE AND COVERED WITH MORE GAUZE PADS AND TAPE. PT AGREED TO HAVE THEM RE DRESSED THIS AFTERNOON AND HAVE PICTURES TAKEN. HIS BOTTOM, SCROTUM, AND PENIS BASE ALSO HAVE AN ENFLAMED RED RASH AROUND IT. BARRIER CREAM WAS APPLIED AND SCROTUM WAS SUPPORTED AWAY FROM PERINEAL AREAL WITH GAUZE AND PADDING. WILL CONTINUE TO MONITOR AND REDRESS
[2021-08-22 17:31] LABS: PO2 Arterial 220 mmHg (80-100)
[2021-08-22 17:33] LABS: PCO2 Arterial 72.3 mmHg (35-45); pH Blood Arterial 7.26 (7.35-7.45)
[2021-08-22 18:26] LABS: Hematocrit 31.1 % (37.0-53.0); Hemoglobin 8.8 g/dL (13.5-17.5); Mean Corpuscular HGB Conc 28.3 g/dL (31.5-36.5); Mean Corpuscular Volume 81 fL (80-100); Mean Platelet Volume 9.8 fL (9.1-12.4); Platelet Count 376 K/mm3 (150-400); RDW Coefficient Variation 18.8 % (11.7-14.2); RDW Standard Deviation 55.8 fL (35.1-46.3); Red Blood Cell Count 3.82 M/mm3 (4.30-5.90); White Blood Cell Count 1.21 K/mm3 (4.00-11.30)
--- NOTE | 2021-08-22 18:53 | NUR ---
TRANSFER NOTE PT WILL BE TRANSFERRED TO ICU. HE HAS SPENT MOST OF THE DAY ANXIOUS AND ASKING FOR BREATHING TREATMENTS SAYING HE WAS SHORT OF BREAHT. WE HAVE MONITORED HIM MANY TIME THROUOUT THE DAY WITH THE OXIMETER AND HE WAS ALWAYS SATTING IN THE HIGH 90S AND 100. AROUND 1600 TODAY PT HAD CALLED FOR ANOTHER BREATHING TREATMENT, WAS GIVEN .5 MG OF ATIVAN FOR ANXIETY WHILE HE WAITED. WHEN RT SHOWED UP HE WAS IN THE LOW 60'S PT WAS PLACED ON HIGH FLOW NC ON 8L. HE REMAINED ON THE 8L HIGHFLOW UNTL 1730 WHEN NURSES WERE IN THE ROOM HANGING ABX AND HE WAS LOOKING PALE AND BREATHING ABOUT 25 BPM. SATTING IN THE LOW 70'S. A RAPID WAS CALLED, PT PLACED ON NON REBREATHER AT 10 L STILL NO CHANGE. ABGS AND EKG CAUSED DR TO DECIDE HE SHOULD BE MOVED TO PCU.
--- NOTE | 2021-08-22 19:07 | NUR ---
WOUND CARE UPDATE DR WAS INFORMED OF WOUNDS AND WOULD CLINIC REFFERRAL PLACED. WOUND WAS REDRESSED WITH STERILE GAUZE AND TAP TO KEEP CLEAN AND DRY. WOUND NURSE ADVISED THAT A THICK LAYER OF BARRIER CREAM BE PLACED OVER GASHES TO PROTECT FROM STOOLS AND WETNESS. WILL PASS ON TO APPRENTICE PAINTER BRUSH THAT PT NEEDS TO BE KEPT CLEAN AND DRY.
[2021-08-22 20:26] LABS: PCO2 Arterial 44.2 mmHg (35-45); PO2 Arterial 89 mmHg (80-100)
[2021-08-23 02:44] LABS: Hematocrit 25.8 % (37.0-53.0); Hemoglobin 7.2 g/dL (13.5-17.5); Mean Corpuscular HGB 23.4 pg (26.0-34.0); Mean Corpuscular HGB Conc 27.9 g/dL (31.5-36.5); Mean Corpuscular Volume 84 fL (80-100); Mean Platelet Volume 9.6 fL (9.1-12.4); Platelet Count 313 K/mm3 (150-400); RDW Standard Deviation 58.2 fL (35.1-46.3); Red Blood Cell Count 3.08 M/mm3 (4.30-5.90); White Blood Cell Count 13.72 K/mm3 (4.00-11.30)
--- NOTE | 2021-08-23 02:56 | NUR ---
0155 PT WITH DECREASING SATS, BP CHECKS IN MULTIPLE EXTREMITIES RANGING FROM 70-80'S/4O'S, DECREASING HR TO 30, CODE CALLED, BACKBOOARD PLACED, NO PALPABLE PULSE. SEE CODE BLUE FLOW SHEET. PT TRANSFERED TO ICU VIA BED, CALL PLACED TO CAREGIVER ON RECORD, NO ANSWER, LEFT MESSAGE FOR SERVICE TECHNICIAN COPIER TO CALL ICU FOR UPDATE ON PT CONDITION. ALL BELONGINGS, MEDS TO ICU W/ PT. CHRIS TODD
[2021-08-23 03:15] LABS: BAND PERCENT MAN 11 % (0-8); BASOPHILS PERCENT MAN 0 % (0-2); EOSINOPHILS PERCENT MAN 0 % (0-6); LYMPHOCYTES ABSOLUTE MAN 0.68 K/mm3 (0.84-5.20); LYMPHOCYTES PERCENT MAN 5 % (21-46); MONOCYTES ABSOLUTE MAN 0.68 K/mm3 (0.16-1.47); MONOCYTES PERCENT MAN 5 % (4-13); MYELOCYTE ABSOLUTE MAN 0.13 K/mm3 (0.00-0.00); MYELOCYTE PERCENT MAN 1 % (0-0); NEUTROPHILS ABSOLUTE MAN 12.21 K/mm3 (1.96-9.15); SEG NEUTROPHILS PERCENT MAN 78 % (41-73); TOTAL CELLS COUNTED 100
[2021-08-23 03:16] LABS: Alanine Aminotransfer (ALT/SGP 65 U/L (12-78); Albumin, Blood 1.9 g/dL (3.4-5.0); Albumin/Globulin Ratio 0.4 (0.8-1.8); Alk Phos 96 U/L (50-136); Anion Gap 9 mmol/L (6-16); Aspartate Aminotrans (AST/SGOT 112 U/L (12-37); Bilirubin, Total 1.2 mg/dL (0.1-1.0); Blood Urea Nitrogen 26 mg/dL (8-24); Bun/Creatinine Ratio 27.7 (12.0-20.0); CO2, Blood 26 mmol/L (21-32); Calcium, Blood 7.6 mg/dL (8.5-10.1); Chloride, Blood 107 mmol/L (98-108); Creatinine, Blood 0.94 mg/dL (0.60-1.20); Globulin, Blood 5.1 g/dL (2.2-4.0); Glomerular Filtration Rate >60 (60-); Glucose, Blood 152 mg/dL (70-99); Phosphorus, Blood 4.9 mg/dL (2.5-4.9); Potassium, Blood 5.5 mmol/L (3.5-5.5); Sodium, Blood 142 mmol/L (136-145)
--- NOTE | 2021-08-23 04:12 | NUR ---
PT ARRIVED TO ICU BED 15 S/P CODE BLUE ON PCU WHERE PT WAS INTUBATED AND ROSC WAS OBTAINED. PT ARRIVED AT APPX 0220 AND BECAME PULSELESS AT 0222. CPR WAS INITITATED PER ACLS PROTOCOL. DR HAWKINS WAS PRESENT AT PT BEDSIDE. ORDERS GIVEN. PT WAS UNABLE TO BE SUCCESSFULLY RESUSCITATED AND TIME OF WAS PRONOUNCED BY MD AT 0308.
== END 2021-08-23 03:08 | DRG 698 ==
LOC: ER 16:02 → MEDS 20:30 → PCU 08-22 18:15 → ICUW 08-23 02:00
PROVIDERS: Emergency Medicine; Family Medicine; Internal Medicine; Pharmacist; ADMIT Internal Medicine
PROC: XW023U6 Introduction of COVID-19 Vaccine into Muscle, Percutaneous Approach, New Technology Group 6 (ICD-10-PCS; principal; 2021-07-30)
PROC: 3E02340 Introduction of Influenza Vaccine into Muscle, Percutaneous Approach (ICD-10-PCS; 2021-07-30)
PROC: 30233N1 Transfusion of Nonautologous Red Blood Cells into Peripheral Vein, Percutaneous Approach (ICD-10-PCS; 2021-08-19)
PROC: 5A12012 Performance of Cardiac Output, Single, Manual (ICD-10-PCS; 2021-08-23)
PROC: 0BH17EZ Insertion of Endotracheal Airway into Trachea, Via Natural or Artificial Opening (ICD-10-PCS; 2021-08-23)
PROC: 5A1935Z Respiratory Ventilation, Less than 24 Consecutive Hours (ICD-10-PCS; 2021-08-23)
DX: T83.511A Infection and inflammatory reaction due to indwelling urethral catheter, initial encounter (principal); A41.9 Sepsis, unspecified organism; J18.9 Pneumonia, unspecified organism; J96.90 Respiratory failure, unspecified, unspecified whether with hypoxia or hypercapnia; I50.32 Chronic diastolic (congestive) heart failure; J90 Pleural effusion, not elsewhere classified; J44.0 Chronic obstructive pulmonary disease with (acute) lower respiratory infection; J96.11 Chronic respiratory failure with hypoxia; I48.92 Unspecified atrial flutter; N39.0 Urinary tract infection, site not specified; J45.909 Unspecified asthma, uncomplicated; G47.33 Obstructive sleep apnea (adult) (pediatric); N40.0 Benign prostatic hyperplasia without lower urinary tract symptoms; Z23 Encounter for immunization; I44.7 Left bundle-branch block, unspecified; R49.0 Dysphonia; D63.8 Anemia in other chronic diseases classified elsewhere; F41.9 Anxiety disorder, unspecified; I49.01 Ventricular fibrillation; Z99.3 Dependence on wheelchair; E11.42 Type 2 diabetes mellitus with diabetic polyneuropathy; E55.9 Vitamin D deficiency, unspecified; Z98.890 Other specified postprocedural states; Z88.5 Allergy status to narcotic agent; Z99.81 Dependence on supplemental oxygen; Z88.8 Allergy status to other drugs, medicaments and biological substances; Z79.4 Long term (current) use of insulin; Z79.899 Other long term (current) drug therapy; Y84.6 Urinary catheterization as the cause of abnormal reaction of the patient, or of later complication, without mention of misadventure at the time of the procedure; Y95 Nosocomial condition
CPT/HCPCS: 0031A; 31500; 36415; 36430; 36600; 51702; 71045; 80048; 80053; 80069; 80202; 81001; 82306; 82550; 82607; 82728; 82746; 82803; 82947; 83036; 83540; 83550; 83605; 83735; 83880; 84100; 84145; 85014; 85018; 85025; 85027; 86850; 86900; 86901; 86923; 87077; 87086; 87186; 90686; 91303; 92950; 93005; 93010; 94002; 94640; 94660; 94760; 94762; 96365; 96366; 96367; 97110; 97162; 97530; 97530-CQ; 99285-25; A9270; C8929; G0008; J0282; J0330; J0696; J1650; J1940; J2060; J2543; J3370; J3475; J7030; J7050; J7120; P9016; Q9957